=== PATIENT | female | born 1995 | race Caucasian/White ===

== ENCOUNTER 2020-08-08 08:59 | Emergency (ER) | payer MEDICAID, SELFPAY ==
[2020-08-08 09:13] VITALS: BP 141/79; PULSE 70; RESP 18; TEMP 36.8; O2SAT 99; BMI 27.4
--- NOTE | 2020-08-08 09:13 | US_ITS ---
EXAMINATION: US ABDOMEN COMPLETE CLINICAL INFORMATION: Upper abdominal pain and vomiting. COMPARISON: CT scan of July 28, 2018 and abdominal ultrasound of November 28, 2018 TECHNIQUE: Real-time imaging of the abdominal viscera. FINDINGS: PANCREAS: Normal. ABDOMINAL AORTA: The proximal, mid, and distal segments are normal in caliber. INFERIOR VENA CAVA: Visualized portions are normal. LIVER: Normal. The liver is normal in size. The liver contour is normal. Parenchymal echogenicity is normal. No focal hepatic lesion. There is no intrahepatic biliary duct dilatation seen. GALLBLADDER: Distended. There is a linear echogenic region which is seen dependently. No pericholecystic fluid is identified. No wall thickening is noted. No shadowing calculi. No fluid within the wall is noted. COMMON BILE DUCT: Normal in caliber measuring 0.4 cm in diameter. RIGHT KIDNEY: Normal. No hydronephrosis. No renal calculi or focal parenchymal lesions. The kidney measures 11.5 cm in maximum dimension. LEFT KIDNEY: Normal. No hydronephrosis. No renal calculi or focal parenchymal lesions. The kidney measures 13.6 cm in maximum dimension. 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 SPLEEN: Splenomegaly is present The spleen measures 15 cm in maximum dimension. Accessory spleen is present. FREE FLUID: None. IMPRESSION: Echogenic linear focus within the gallbladder without evidence of acute cholecystitis. Normal-appearing pancreas.
--- NOTE | 2020-08-08 09:13 | ED_ITS ---
HPI - Nausea/Vomiting/Diarrhea General Chief complaint: Nausea/Vomiting/Diarrhea Stated complaint: vomiting Time Seen by Provider: 08/08/20 09:13 Source: patient Mode of arrival: ambulatory Limitations: no limitations History of Present Illness MD elicited complaint: nausea, vomiting and abdominal pain Pertinent past history: other (ileus and frequent bouts of vomiting) Onset (ago): week(s) (1) Description of vomiting: food contents and watery Associated nausea: Yes Associated abdominal pain: Yes Location of pain: epigastric Radiation: diffuse Pain consistency: constant Severity: severe Quality: cramping Exacerbating factors: eating Relieving factors: none Associated symptoms: diaphoresis, fever/chills, loss of appetite, malaise, nausea/vomiting and weakness Related Data Previous Rx's Medication Instructions Recorded metoclopramide HCl [Reglan] 10 mg PO Q6H PRN #20 tab 08/08/20 Allergies Allergy/AdvReac Type Severity Reaction Status Date / Time ondansetron [From ZOFRAN] Allergy Intermediate HIVES AND Verified 08/08/20 09:13 VOMITING Sulfa (Sulfonamide Allergy Intermediate HIVES Verified 08/08/20 09:13 Antibiotics) [SULFA (SULFONAMIDE ANTIBIOTICS)] sulfamethoxazole Allergy Intermediate DIARRHEA Verified 08/08/20 09:13 [From BACTRIM] AND VOMITING trimethoprim [From BACTRIM] Allergy Intermediate DIARRHEA Verified 08/08/20 09:13 AND VOMITING ciprofloxacin [From CIPRO] Allergy Mild HIVES Verified 08/08/20 09:13 latex [LATEX] Allergy Mild ITCHING Verified 08/08/20 09:13 Review of Systems Review of Systems: Constitutional : No Weight loss, No Fever, No Chills ENT/Mouth : No sore throat, No Rhinorrhea Eyes: No Swelling, No Redness Cardiovascular : No Chest Pain, No SOB, NoEdema Respiratory : No Cough, No Sputum, No Wheezing Gastrointestinal : Positive Nausea, Positive Vomiting, no Diarrhea, positive abdominal Pain, No Hematochezia, No Melena Genitourinary : No Dysuria, No Urinary Frequency, No Hematuria, No Urgency Musculoskeletal : No joint pain, No Myalgias, No Joint Swelling Skin : No Skin Lesions, No rash Neuro : No Weakness, No Numbness, No Dizziness, No Headache Psych : pos Anxiety/Panic, No Depression All other systems reviewed and are negative. Gastrointestinal: Gastrointestinal: Reports nausea PMFSH Past Medical History Medical History (Updated 08/08/20 @ 13:09 by Francesca Sanford DO) Anomalous implantation of ureter Anxiety Depression IBS (irritable colon syndrome) Social History Social History Alcohol intake: never Smoking Status: Never smoker Use of substances other than those prescribed or required for medical reasons: No Advance Directives: No Advance Directives Information Provided: No Physical Exam Vital Signs: Vital Signs: Vital Signs Temp Pulse Resp BP Pulse Ox 08/08/20 09:13 98.2 F 70 18 141/79 H 99 Body Mass Index 27.4 Appearance: Alert. Oriented X3. Mild acute distress. Active vomiting Eyes: Pupils equal, round and reactive to light. ENT: Pharynx normal. Neck: Normal inspection. Neck supple. CVS: Normal heart rate and rhythm. Pulses normal. Respiratory: No respiratory distress. Breath sounds normal. Abdomen: Soft and moderate epigastric ttp Skin: Skin warm and diaphoretic. pale skin color. Normal skin turgor. Extremities: No lower extremity edema. No calf ttp Neuro: Oriented X 3. No motor deficit. No sensory deficit. Course Course Course Narrative: US negative, stable for DC, no further vomiting, possible THC induced vomiting MDM - Nausea/Vomiting/Diarrhea MDM Narrative Medical decision making narrative: 25 yo female with hx of vomiting and IBS does not smoke THC told once she had ielus at this time has had bouts of vomiting for the past two weeks will need labs, US of GB, IVF, reglan, UPT, dispo per results and workup Lab Data Result diagrams: 08/08/20 09:32 08/08/20 09:31 Labs: Lab Results 08/08/20 08/08/20 08/08/20 Range/Units 09:31 09:32 12:03 WBC 8.0 (4.8-10.8) X10*3/uL RBC 4.47 (4.20-5.50) X10*6/uL Hgb 14.0 (12.0-16.0) g/dl Hct 40.6 (37-47) % MCV 90.8 (80-98) fL MCH 31.3 (27.0-33.0) pg MCHC 34.5 (31.0-35.0) g/dl RDW 12.4 (11.0-16.0) % Plt Count 205 (160-400) X10*3/uL MPV 10.8 (9.4-12.3) fL Immature Gran % (Auto) 0.4 (0.0-0.4) % Neut % (Auto) 83.5 H (45-73) % Lymph % (Auto) 9.4 L (20-40) % Isabela % (Auto) 5.5 (2-11) % Eos % (Auto) 0.8 (0-4) % Baso % (Auto) 0.4 (0-2) % Lymph # (Auto) 0.8 L (1.2-4.9) X10*3/uL Isabela # (Auto) 0.4 (0.1-1.2) X10*3/uL Eos # (Auto) 0.1 (0.0-0.4) X10*3/uL Baso # (Auto) 0.0 (0.0-0.2) X10*3/uL Abs Immat Gran (auto) 0.03 (0.00-0.03) X10*3/uL Absolute Neuts (auto) 6.7 (2.0-8.3) X10*3/uL Absolute Nucleated RBC 0.000 (0.0-0.012) X10*3/uL Nucleated RBC % (auto) 0.0 (0.0-0.2) /100WBC Sodium 142 (135-145) mmol/L Potassium 3.9 (3.3-5.1) mmol/l Chloride 110 H (96-108) mmol/L Carbon Dioxide 20 L (22-29) mmol/L Anion Gap 16 (12-20) BUN 12 (9-16) mg/dL Creatinine 0.76 (0.5-1.4) mg/dL Estim Creat Clear Calc 101.4 Estimated GFR > 60 Random Glucose 122 H (60-115) mg/dL Calcium 9.5 (8.4-10.2) mg/dL Magnesium 1.7 (1.6-2.6) mg/dL Total Bilirubin 0.6 (0.0-1.0) mg/dL Direct Bilirubin 0.2 (0.0-0.5) mg/dL AST 12 (5-31) U/L ALT 12 (0-31) U/L Alkaline Phosphatase 61 (39-117) U/L Total Protein 7.2 (6.5-8.0) g/dL Albumin 4.6 (3.5-5.0) g/dL Urine Color Urine Appearance Urine pH (5.0-8.0) Ur Specific [place] (1.005-1.025) Urine Protein (NEG-TRACE) MG/DL Urine Glucose (UA) (NEG) MG/DL Urine Ketones (NEG) MG/DL Urine Blood (NEG) Urine Nitrite (NEG) Ur Leukocyte Esterase (NEG) Urine RBC (0) /HPF Urine WBC (0-4) /HPF Ur Squamous Epith Cells /LPF Urine Bacteria /LPF Urine Test (NEGATIVE) Urine Opiates Screen Not Detected (Not Detect) Ur Barbiturates Screen Not Detected (Not Detect) Ur Phencyclidine Scrn Not Detected (Not Detect) Ur Amphetamines Screen Not Detected (Not Detect) U Benzodiazepines Scrn Not Detected (Not Detect) Urine Cocaine Screen Not Detected (Not Detect) U Marijuana (THC) Screen POSITIVE H (Not Detect) 08/08/20 Range/Units 12:03 WBC (4.8-10.8) X10*3/uL RBC (4.20-5.50) X10*6/uL Hgb (12.0-16.0) g/dl Hct (37-47) % MCV (80-98) fL MCH (27.0-33.0) pg MCHC (31.0-35.0) g/dl RDW (11.0-16.0) % Plt Count (160-400) X10*3/uL MPV (9.4-12.3) fL Immature Gran % (Auto) (0.0-0.4) % Neut % (Auto) (45-73) % Lymph % (Auto) (20-40) % Isabela % (Auto) (2-11) % Eos % (Auto) (0-4) % Baso % (Auto) (0-2) % Lymph # (Auto) (1.2-4.9) X10*3/uL [place] # (Auto) (0.1-1.2) X10*3/uL Eos # (Auto) (0.0-0.4) X10*3/uL Baso # (Auto) (0.0-0.2) X10*3/uL Abs Immat Gran (auto) (0.00-0.03) X10*3/uL Absolute Neuts (auto) (2.0-8.3) X10*3/uL Absolute Nucleated RBC (0.0-0.012) X10*3/uL Nucleated RBC % (auto) (0.0-0.2) /100WBC Sodium (135-145) mmol/L Potassium (3.3-5.1) mmol/l Chloride (96-108) mmol/L Carbon Dioxide (22-29) mmol/L Anion Gap (12-20) BUN (9-16) mg/dL Creatinine (0.5-1.4) mg/dL Estim Creat Clear Calc Estimated GFR Random Glucose (60-115) mg/dL Calcium (8.4-10.2) mg/dL Magnesium (1.6-2.6) mg/dL Total Bilirubin (0.0-1.0) mg/dL Direct Bilirubin (0.0-0.5) mg/dL AST (5-31) U/L ALT (0-31) U/L Alkaline Phosphatase (39-117) U/L Total Protein (6.5-8.0) g/dL Albumin (3.5-5.0) g/dL Urine Color YELLOW Urine Appearance CLEAR Urine pH 8.0 (5.0-8.0) Ur Specific [place] 1.020 (1.005-1.025) Urine Protein NEG (NEG-TRACE) MG/DL Urine Glucose (UA) NEG (NEG) MG/DL Urine Ketones 5 (NEG) MG/DL Urine Blood TRACE (NEG) Urine Nitrite NEG (NEG) Ur Leukocyte Esterase NEG (NEG) Urine RBC 0-2 (0) /HPF Urine WBC 0 (0-4) /HPF Ur Squamous Epith Cells 1+ /LPF Urine Bacteria NONE /LPF Urine Test NEGATIVE (NEGATIVE) Urine Opiates Screen (Not Detect) Ur Barbiturates Screen (Not Detect) Ur Phencyclidine Scrn (Not Detect) Ur Amphetamines Screen (Not Detect) U Benzodiazepines Scrn (Not Detect) Urine Cocaine Screen (Not Detect) U Marijuana (THC) Screen (Not Detect) Discharge Plan Discharge Clinical Impression: Vomiting Qualifiers: Vomiting type: unspecified Vomiting Intractability: non-intractable Nausea presence: with nausea Qualified Code(s): R11.2 - Nausea with vomiting, unspecified Patient Disposition: Home, Self-Care Instructions: Cyclic Vomiting Syndrome (ED) Additional Instructions: STOP SMOKING MARIJUANA Prescriptions: New metoclopramide HCl [Reglan] 10 mg tablet 10 mg PO Q6H PRN (Reason: nausea and vomiting) Qty: 20 RF: 0 Referrals: Elio Anguiano [Physician] - 2 weeks Interventions: ED Discharge Assessment Last Done: 08/08/20 13:25 Discharge Date/Time: 08/08/20 14:05
[2020-08-08 09:36] LABS: MANUAL DIFF FLAG NO
[2020-08-08 09:39] LABS: Basophils Percent Auto 0.4 % (0-2); Eosinophils Absolute Auto 0.1 X10*3/uL (0.0-0.4); Eosinophils Percent Auto 0.8 % (0-4); Hematocrit 40.6 % (37-47); Imm Gran Abs Auto 0.03 X10*3/uL (0.00-0.03); Imm Gran Pct Auto 0.4 % (0.0-0.4); Lymphocytes Absolute Auto 0.8 X10*3/uL (1.2-4.9); Lymphocytes Percent Auto 9.4 % (20-40); Mean Corpuscular HGB Conc 34.5 g/dl (31.0-35.0); Mean Corpuscular Hemoglobin 31.3 pg (27.0-33.0); Mean Corpuscular Volume 90.8 fL (80-98); Mean Platelet Volume 10.8 fL (9.4-12.3); Monocytes Absolute Auto 0.4 X10*3/uL (0.1-1.2); Monocytes Percent Auto 5.5 % (2-11); Neutrophils Absolute Auto 6.7 X10*3/uL (2.0-8.3); Neutrophils Percent Auto 83.5 % (45-73); Platelet Count 205 X10*3/uL (160-400); Red Blood Count 4.47 X10*6/uL (4.20-5.50); Red Cell Distribution Width 12.4 % (11.0-16.0)
[2020-08-08] MEDS: diphenhydrAMINE HCL 50 MG/ML VIAL 25 MG IVPUSH ×2 (09:47→09:48)
[2020-08-08] MEDS: Metoclopramide HCl 10 MG/2 ML VIAL 5 MG IVPUSH (09:48)
[2020-08-08] MEDS: 0.9 % Sodium Chloride 500 ML 999 ML IVCONT (09:49)
[2020-08-08 10:02] LABS: Alanine Aminotransferase 12 U/L (0-31); Albumin Level 4.6 g/dL (3.5-5.0); Alkaline Phosphatase 61 U/L (39-117); Anion Gap 16 (12-20); Aspartate Amino Transferase 12 U/L (5-31); Bilirubin Direct 0.2 mg/dL (0.0-0.5); Bilirubin Total 0.6 mg/dL (0.0-1.0); Blood Urea Nitrogen 12 mg/dL (9-16); Calcium 9.5 mg/dL (8.4-10.2); Carbon Dioxide 20 mmol/L (22-29); Chloride 110 mmol/L (96-108); Creatinine Clr Calc Pharmacy 101.4; Estimated Glomerular Filt Rate > 60; Glucose Random 122 mg/dL (60-115); Magnesium 1.7 mg/dL (1.6-2.6); Potassium 3.9 mmol/l (3.3-5.1); Sodium 142 mmol/L (135-145); Total Protein 7.2 g/dL (6.5-8.0)
[2020-08-08] MEDS: Haloperidol Lactate 5 MG/ML VIAL IM (10:07)
--- NOTE | 2020-08-08 10:09 | PC.NURSE ---
iv established, blood labs obtained and sent as well as medicated w initial orders. pt persists vomitting bile, provider aware, medicated further per emar. pt sts id like to just be sedated . wctm for effect.
--- NOTE | 2020-08-08 11:03 | PC.NURSE ---
TAKEN TO US VIA STRETCHER
--- NOTE | 2020-08-08 12:06 | PC.NURSE ---
pt ambulated to and from bathroom w steady gait. sts feeling no better , but no appearence of vomitting, crying or grimacing.
[2020-08-08 12:18] LABS: Glucose Urine UA NEG (NEG); Leukocyte Esterase Urine NEG (NEG); Nitrite Urine NEG (NEG); Urine Blood TRACE (NEG); Urine Ketones 5 MG/DL (NEG); Urine Protein NEG (NEG-TRACE)
[2020-08-08 12:22] LABS: Appearance Urine CLEAR; Color Urine YELLOW
[2020-08-08 12:29] LABS: UPreg QC Valid YES; Urine Pregnancy NEGATIVE (NEGATIVE)
[2020-08-08 12:30] LABS: RBC Urine 0-2 /HPF (0); Squamous Epithelial Cell Urine 1+ /LPF; WBC Urine 0 /HPF (0-4)
[2020-08-08 12:44] LABS: Amphetamine Screen Urine Not Detected (Not Detect); Barbiturates, Urine Not Detected (Not Detect); Benzodiazepines Screen Urine Not Detected (Not Detect); Cannabinoid Screen Urine POSITIVE (Not Detect); Cocaine Screen Urine Not Detected (Not Detect); Opiate Screen Urine Not Detected (Not Detect); Phencyclidine Screen Urine Not Detected (Not Detect)
== END 2020-08-08 14:05 | disposition home or self-care (01) ==
PROVIDERS: Emergency Provider Emergency Medicine; PCP Internal Medicine
DX: R11.2 Nausea with vomiting, unspecified (principal); R10.13 Epigastric pain; F12.90 Cannabis use, unspecified, uncomplicated
CPT/HCPCS: 76700; 80048; 80076; 80307; 81001; 81025; 83735; 85025; 96372; 96374; 96375; 99284; J1200; J2765

== ENCOUNTER 2024-05-31 09:51 | Emergency (ER) | payer MEDICAID, SELFPAY ==
[2024-05-31 10:25] VITALS: BP 128/70; BP 128/72; PULSE 104; PULSE 88; RESP 15; TEMP 36.7; O2SAT 99; BMI 30.5
--- OUTSIDE RECORDS SUMMARY | 2024-05-31 10:47 | XMS_ITS | Continuity of Care Document ---
Author Organization [facility] Address [address] [place] [id number]- Care Team Providers Care Assistant Terminal Manager Name Role Phone Paige SAMANIEGO, Edwin Primary Care Physician [phone] Encounter [facility] Date(s): 06/21/21 - 06/23/[address] [address] Discharge Disposition: A-D/C Home Attending Physician: Chrystal Kelley MD Admitting Physician: Chrystal Kelley MD Referring Physician: Chrystal Kelley MD Allergies, Adverse Reactions, Alerts Substance Reaction Severity Status ciprofloxacin Hives Active sulfADIAZINE Hives Active Latex Hives Active Ciloxan 0.3% ophthalmic solution reaction Active Other Food Allergy 1 Acute vomiting Skin rash Active 1red sauce, all citrus, chocolate Immunizations Given and Recorded Vaccine Date Status Refusal Reason tetanus/diphtheria/pertussis, acel(Tdap) 04/29/21 Given SARS-CoV-2 (COVID-19) mRNA-1273 vaccine 04/18/21 R ecorded SARS-CoV-2 (COVID-19) mRNA-1273 vaccine 03/19/21 R ecorded influenza virus vaccine, inactivated 12/28/20 Give n Medications clonazePAM 0.5 mg oral tablet = 0.5 mg, By Mouth, 2 times a day, 0 Refills, Maintenance, 04/08/19 7:40:37 EDT, Tablet Start Date: 04/08/19 Status: Ordered Multivitamins with Folic Acid 1 mg oral tablet 1 tablet, By Mouth, Daily, # 90 tablet, 3 Refills, Maintenance, 11/07/20 12:22:00 EST, Tablet, [facility]/pharmacy #[id number], Partial fill upon patient request if the prescription is for a schedule II opioid drug., 1 tablet By Mouth Daily, 158, cm, 08/05/20 16:5... Start Date: 11/07/20 Status: Ordered sertraline 50 mg oral tablet = 50 mg, By Mouth, Daily, Take 50mg (1 tablet) by mouth for 3 weeks (21 days) then take 100mg (2 tablets) by mouth., # 30 tablet, 3 Refills, Maintenance, 04/08/19 7:40:50 EDT, Tablet Start Date: 04/08/19 Stop Date: 08/06/19 Status: Ordered Problem List Condition Effective Dates Status Health Status Inform ant Abnormal Pap smear of cervix(Confirmed) 1 Active H/O Abnormal first tri scree n, normal amnio/microarray at 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), bilateral duplex kidneys(Confirmed) 5, 6, 7 Active Asthma, exercise induced(Confirmed) 8 Active Marijuana use(Confirmed) 9 Active GERD (gastroesophageal reflu x disease)(Confirmed) Active Hx of depression, currently (Confirmed) Active History of stomach ulcers(Co nfirmed) 10 Active History of delivery, currently (Confirmed) 11 Active Kidney disorder(Confirmed) 12 Active (Confirmed) Active Scoliosis(Confirmed) Active Seizure disorder(Confirmed) 13, 14 Active 1Patient states last PAP at [facility] about three years ago was ASCUS 2Son born with Nail Patellar Syndrome 3FTS: increased risk for Down Syndrome of ; second trimester scan showed deformed legs with 180 degree rotation at knees and feet 4Not currently in therapy, states does not like zoom therapy . Prescribed zoloft and clonazepam by PCP. States that she currently feels stable. 5Son born with Nail Patellar Syndrome 6according to records pt. 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 9Smokes 2-3 times weekly 10As a child, states last episode was about 5 years ago 11H/O delivery at 36+6 in last 12Dual collecting kidney on the left side. Last saw renal as a child, has not seen since after her surgery in 2001 13States last seizure was 3-4 years ago. Does not have a neurologist. Is not prescribed seizure medications but is prescribed clonazepam. 14Hx seizure age 1. Last seizure >2 yrs ago. Does not have neurologist. Vital Signs Most recent to oldest [Reference Range]: 1 2 3 Oxygen Saturation [94-100 %] 100 % (06/23/21 8:00 AM) 97 % (06/23/21 12:00 AM) 97 % (06/22/21 4:30 PM) Pulse Rate [55-90 bpm] 63 bpm (06/23/21 8:00 AM) 58 bpm (06/23/21 12:00 AM) 62 bpm (06/22/21 4:30 PM) Blood Pressure [90-138/55-84 mm Hg] 123/64mm Hg (06/23/21 8:00 AM) 127/78mm Hg (06/23/21 12:00 AM) 124/74mm Hg (06/22/21 4:30 PM) Respiratory Rate [16-30 br/min] 18 br/min (06/23/21 8:00 AM) 18 br/min (06/23/21 12:00 AM) 18 br/min (06/22/21 4:30 PM) Temperature [96.8-100.4 DegF] 98.2 DegF (06/23/21 8:00 AM) 97.7 DegF (06/23/21 12:00 AM) 98.0 DegF (06/22/21 4:30 PM) Mode of Delivery (Oxygen) Room air (06/23/21 8:00 AM) Room air (06/23/21 12:00 AM) Room air (06/22/21 4:30 PM) Blood pressure sites Arm, right (06/23/21 8:00 AM) Arm, right (06/23/21 12:00 AM) Arm, right (06/22/21 4:30 PM) Temperature Route Oral (06/23/21 8:00 AM) Oral (06/23/21 12:00 AM) Oral (06/22/21 4:30 PM) Social History Social History Type Response Smoking Status Former smoker, quit more than 30 days ago; Other: Quit about two and a half years ago; entered on: 11/26/20 Sex
--- OUTSIDE RECORDS SUMMARY | 2024-05-31 10:47 | XMS_ITS | Continuity of Care Document ---
Author Organization [facility] Address [address] [place] [id number]- Care Team Providers Care Studio Set Up Worker Name Role Phone Paige SAMANIEGO, Edwin Primary Care Physician Encounter [facility] Date(s): 11/28/20 - 12/28/[address] [id number]- Allergies, Adverse Reactions, Alerts Substance Reaction Severity Status ciprofloxacin Hives Active sulfADIAZINE Hives Active Latex Hives Active Ciloxan 0.3% ophthalmic solution reaction Active Other Food Allergy 1 Acute vomiting Skin rash Active 1red sauce, all citrus, chocolate Immunizations Given and Recorded Vaccine Date Status Refusal Reason influenza virus vaccine, inactivated 12/28/20 Give n Medications clonazePAM 0.5 mg oral tablet = 0.5 mg, By Mouth, 2 times a day, 0 Refills, Maintenance, 04/08/19 7:40:37 EDT, Tablet Start Date: 04/08/19 Status: Ordered doxylamine 25 mg oral tablet See Instructions, half tablet By Mouth twice a day, # 14 tablet, 0 Refills, Acute 12/31/20 8:29:00 EDT, 12/03/20 9:01:00 EST, [facility]/pharmacy #[id number], Partial fill upon patient request if the prescriptionis for a schedule II opioid drug., 158, cm, ... Start Date: 12/03/20 Stop Date: 12/31/20 Status: Ordered Multivitamins with Folic Acid 1 mg oral tablet 1 tablet, By Mouth, Daily, # 90 tablet, 3 Refills, Maintenance, 11/07/20 12:22:00 EST, Tablet, [id number], Partial fill upon patient request if the prescription is for a schedule II opioid drug., 1 tablet By Mouth Daily, 158, cm, 08/05/20 16:5... Start Date: 11/07/20 Status: Ordered pyridoxine 25 mg oral tablet 1 tablet = 25 mg, By Mouth, 3 times a day, # 30 tablet, 0 Refills, Acute 01/01/21 8:29:00 EDT, 12/03/20 9:01:00 EST, [facility]/pharmacy #[id number], Partial fill upon patient request if the prescription is for aschedule II opioid drug., 158, cm, 11/26/20 10:40:0... 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), bilateral duplex kidneys(Confirmed) 5, 6, 7 Active Asthma, exercise induced(Confirmed) 8 Active Marijuana use(Confirmed) 9 Active GERD (gastroesophageal reflu x disease)(Confirmed) Active History of stomach ulcers(Co nfirmed) 10 Active History of delivery, currently (Confirmed) 11 Active Kidney disorder(Confirmed) 12 Active (Confirmed) Active Scoliosis(Confirmed) Active Seizure disorder(Confirmed) 13, 14 Active 1Patient states last PAP at [facility] about three years ago was ASCUS 2Son [...] hydroureter; normal appearing urinary bladder; connected with [facility] 8Reports does not have an inhaler. 9Smokes [...] >2 yrs ago. Does not have neurologist. Social History Social History Type Response Smoking Status Former smoker, quit more than 30 days ago; Other: Quit about two and a half years ago; entered on: 11/26/20 Sex
--- OUTSIDE RECORDS SUMMARY | 2024-05-31 10:47 | XMS_ITS | Continuity of Care Document ---
Author Organization [facility] Address [address] [place] [address]- Care Team Providers Care Hand Slitter Name Role Phone Jessi Gomez DO Primary Care Physician Encounter [facility] Date(s): 02/17/24 - 03/18/[address] [address] Attending Physician: Anali Godfrey Admitting Physician: AdmAnali gusman Referring Physician: Admtr ArCarrillo Allergies, Adverse Reactions, Alerts Substance Reaction Severity Status ciprofloxacin Hives Active sulfADIAZINE Hives Active Dilaudid GI distres Active Latex Hives Active Ciloxan 0.3% ophthalmic solution reaction Active Other Food Allergy 1 Oranges, chocolate, tomatoes Acute vomiting Skin rash Active 1red sauce, all citrus, chocolate Immunizations Given and Recorded Vaccine Date Status Refusal Reason tetanus/diphtheria/pertussis, acel(Tdap) 04/29/21 Given SARS-CoV-2 (COVID-19) mRNA-1273 vaccine 04/18/21 R ecorded SARS-CoV-2 (COVID-19) mRNA-1273 vaccine 03/19/21 R ecorded influenza virus vaccine, inactivated 12/28/20 Give n Medications acetaminophen 325 mg oral tablet 650 mg, 2, tablet, By Mouth, Every 4 hours, PRN, # 50 tablet, Refills 0, Tot. Refills 0, Maintenance, Pain , Mild, 01/08/24 14:51:00 EDT, Route to Pharmacy Electronically, [facility]/pharmacy #[id number], Partialfill upon patient request if the prescription is fo... Start Date: 01/08/24 Status: Ordered clonazePAM 0.5 mg oral tablet 1 tablet = 0.5 mg, By Mouth, 2 times a day, 0 Refills, Maintenance, 04/08/19 7:40:37 EDT, Tablet Start Date: 04/08/19 Status: Ordered ibuprofen 600 mg oral tablet 600 mg, 1, tablet, By Mouth, 4 times a day, PRN, # 50 tablet, Refills 0, Tot. Refills 0, Maintenance, for pain, 01/08/24 14:51:00 EDT, Route to Pharmacy Electronically, [facility]/pharmacy #[id number], Partial fill upon patient request if the prescription is for a... Start Date: 01/08/24 Status: Ordered metoclopramide 10 mg oral tablet 1 tablet = 10 mg, By Mouth, 4 times a day, # 120 tablet, 0 Refills, Maintenance, 01/10/24 12:12:00 EDT, Tablet, [facility]/pharmacy #[id number], Partial fill upon patient request if the prescription is for a schedule II opioid drug., 157, cm, 01/10/24 10:51:00 EDT... Start Date: 01/10/24 Status: Ordered MiraLax oral powder for reconstitution = 17 Gm, By Mouth, Daily, dissolve in water or juice, # 255 Gm, 0 Refills, Maintenance, 01/10/24 12:13:00 EDT, REC Powder, [facility]/pharmacy #[id number], Partial fill upon patient request if the prescription isfor a schedule II opioid drug., 17 Gm By Mouth Davon... Start Date: 01/10/24 Status: Ordered ondansetron 4 mg oral tablet, disintegrating 1 tablet = 4 mg, By Mouth, Every 8 hours, PRN as needed for nausea/vomiting, # 12 tablet, 0 Refills, Maintenance, 01/03/24 6:11:00 EDT, DIS Tablet, [id number], Partial fill upon patient request if the prescription is for a schedule II opioid d... Start Date: 01/03/24 Status: Ordered oxyCODONE 5 mg oral tablet 5 mg, 1, tablet, By Mouth, Every 6 hours, PRN, # 12 tablet, Refills 0, Tot. Refills 0, Maintenance,as needed for pain, 01/08/24 14:51:00 EDT, Route to Pharmacy Electronically, [id number], Partial fill upon patient request if the prescription... Start Date: 01/08/24 Status: Ordered Senna 8.6 mg oral tablet 1 or 2 tablets, By Mouth, Daily at bedtime, PRN, # 60 tablet, Refills 0, Tot. Refills 0, Maintenance, Constipation, 01/20/24 9:36:00 EDT, Route to Pharmacy Electronically, [id number] Tablet, Partial fill upon patient request if the prescriptio... Start Date: 01/20/24 Status: Ordered Senna 8.6 mg oral tablet 17.2 mg, 2, tablet, By Mouth, Daily at bedtime, # 50 tablet, Refills 0, Tot. Refills 0, Maintenance, 01/08/24 14:51:00 EDT, Route to Pharmacy Electronically, [id number], Partial fill upon patient request if the prescription is for a schedule I... Start Date: 01/08/24 Status: Ordered sertraline 100 mg oral tablet 1 tablet = 100 mg, By Mouth, Daily at bedtime, 0 Refills, Maintenance, 01/09/24 11:33:00 EDT, Partial fill upon patient request if the prescription is for a schedule II opioid drug. Start Date: 01/09/24 Status: Ordered simethicone 80 mg oral tablet, chewable 80 mg, 1, tablet, Chew, 4 times a day, PRN, # 12 tablet, Refills 0, Tot. Refills 0, Maintenance, asneeded for gas, 01/10/24 12:13:00 EDT, Route to Pharmacy Electronically, [id number], Partial fill upon patient request if the prescription is f... 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), bilateral duplex kidneys 5, 6, 7 Confirmed Active Asthma, exercise induced 8 Confirmed Active Marijuana use 9 Confirmed Active GERD (gastroesophageal reflux disease) Confirmed Active Hx of depression, currently Confirmed Active History of stomach ulcers 10 Confirmed Active History of delivery, currently 11 Confirmed Active Kidney disorder 12 Confirmed Active Obese class I Confirmed Active Scoliosis Confirmed Active Seizure disorder 13, 14 Confirmed Active 1Patient states last PAP at [facility] about three years ago was ASCUS 2Son [...] hydroureter; normal appearing urinary bladder; connected with [facility] 8Reports does not have an inhaler. [...] >2 yrs ago. Does not have neurologist. Procedures Procedure Date Related Diagnosis Body Site Status Extraction of wisdom tooth Completed Vital Signs Most recent to oldest [Reference Range]: 1 Height 158 cm (02/25/19 3:52 PM) Social History Social History Type Response Tobacco Other: I smoke erum temitope . Sex Patient Care team information Care Team Personnel Name: Mavis Okeefe RN Position: [facility] RN Member Role: Primary Care Nurse Name: Alanis Oneal MA Position: [facility] NILAM Office Staff Member Role: Lifetime Consulting Physician Name: Fannie Hall RN Position: [facility] RN Member Role: Primary Care Nurse Name: Jessi Gomez DO Position: [facility] Physician (General Medicine) Member Role: PCP Address: Address: [address] [place] [address] Name: Darby Trevizo NP Position: [facility] PCO Associate Professional Member Role: Primary Care Nurse Address: Address: [address] [facility] [place] [address]- [place] Care Team Related Persons Name: RADHA DOVE Name: CELESTIN DEXTER Address: home [address] [place] [address] Name: BALA MAYER Address: home [address] [place] [address] Name: LARISA VILLA Address: [employer] Address: home [address] [place] [address] [place] Name: LAXMI VILLA [facility] Address: home [address] [place] [address] Name: [place] Address: [address] [place] [address]
--- OUTSIDE RECORDS SUMMARY | 2024-05-31 10:47 | XMS_ITS | Continuity of Care Document ---
Author Organization [facility] Address [address] [place] [address]- Care Team Providers Care Behavior Interventionist Name Role Phone Paige SAMANIEGO, Edwin Primary Care Physician Encounter [facility] [place] Date(s): 08/11/23 - 09/10/[address] [id number] Allergies, Adverse Reactions, Alerts Substance Reaction Severity Status ciprofloxacin Hives Active Other Food Allergy 1 Acute vomiting Skin rash Active Ciloxan 0.3% ophthalmic solution reaction Active sulfADIAZINE Hives Active Dilaudid Active Latex Hives Active 1red sauce, all citrus, chocolate Immunizations Given and Recorded Vaccine Date Status Refusal Reason tetanus/diphtheria/pertussis, acel(Tdap) 04/29/21 Given SARS-CoV-2 (COVID-19) mRNA-1273 vaccine 04/18/21 R ecorded SARS-CoV-2 (COVID-19) mRNA-1273 vaccine 03/19/21 R ecorded influenza virus vaccine, inactivated 12/28/20 Give n Medications Gabrielle Allergy 60 mg oral tablet 1 tablet = 60 mg, By Mouth, Daily at bedtime, 0 Refills, Maintenance, 03/24/23 17:15:00 EDT, Partial fill upon patient request if the prescription is for a schedule II opioid drug. Start Date: 03/24/23 Status: Ordered Benadryl 25 mg oral tablet 25 mg, 1, tablet, By Mouth, Daily at bedtime, 0 Refills, Maintenance Start Date: 03/24/23 Status: Ordered clindamycin 300 mg oral capsule 1 capsule = 300 mg, By Mouth, Every 6 hours, 0 Refills, Maintenance, 03/24/23 17:16:00 EDT, Partialfill upon patient request if the prescription is for a schedule II opioid drug. Start Date: 03/24/23 Status: Ordered clonazePAM 0.5 mg oral tablet = 0.5 mg, By Mouth, 2 times a day, 0 Refills, Maintenance, 04/08/19 7:40:37 EDT, Tablet Start Date: 04/08/19 Status: Ordered Flonase 50 mcg/inh nasal spray 1spray, Inhalation, Daily, 0 Refills, Maintenance, 03/24/23 17:16:00 EDT, Partial fill upon patientrequest if the prescription is for a schedule II opioid drug. Start Date: 03/24/23 Status: Ordered sertraline 50 mg oral tablet = 50 mg, By Mouth, Daily, Take 50mg (1 tablet) by mouth for 3 weeks (21 days) then take 100mg (2 tablets) by mouth., # 30 tablet, 3 Refills, Maintenance, 04/08/19 7:40:50 EDT, Tablet Start Date: 04/08/19 Stop Date: 08/06/19 Status: Ordered Problem List Condition Confirmation Course Effective Dates Status Health St atus Informant Abnormal Pap smear of cervix 1 Confirmed Active H/O Abnormal first tri screen, normal amnio/microarray at [facility] 2, 3 Confirmed Active Abnormal chromosomal [...] Confirmed Active 1Patient states last PAP at [facility] about three years ago was ASCUS [...] hydroureter; normal appearing urinary bladder; connected with [facility] 8Reports does not have an inhaler. 9Smokes [...] neurologist. Social History Social History Type Response Tobacco Other: I smoke erum temitope . Sex Patient Care team information Care Team Personnel Name: Edwin Gibson MD Position: [facility] Outreach Member Role: PCP Address: Address: [address] [place] [address]- Name: Alanis Oneal MA Position: [facility] DIALLO MA Member Role: Lifetime Consulting Physician Name: Santhosh HAGER, Darby Gr Position: [facility] PCO Associate Professional Member Role: Primary Care Nurse Address: Address: [address] [place] [address]- Care Team Related Persons Name: RADHA DOVE Name: DEXTER CELESTIN Address: home [address] [place] [address] Name: BALA MAYER Address: [address] [place], [place] Name: LARISA VILLA Address: [employer] Address: [address] [place] [address] [place] Name: LAXMI VILLA Address: [employer] Address: home [address] [place], [place] Name: [place] Address: [address] [place] [address]
--- OUTSIDE RECORDS SUMMARY | 2024-05-31 10:47 | XMS_ITS | Continuity of Care Document ---
Author Organization [facility] Address [address] [place] [address]- Care Team Providers Care Radiology Supervisor Name Role Phone Paige SAMANIEGO, Edwin Primary Care Physician [phone] [place] [facility] [place] Date(s): 05/28/21 - 06/30/[address] [address] Attending Physician: Not on Staff, Attending MD Allergies, Adverse Reactions, Alerts Substance Reaction [...] first tri scree n, normal amnio/microarray at [facility](Confirmed) 2, 3 Active Abnormal chromosomal and gen [...] 14 Active 1Patient states last PAP at [facility] about three years ago was ASCUS [...] hydroureter; normal appearing urinary bladder; connected with [facility] 8Reports does not have an inhaler. [...]
--- OUTSIDE RECORDS SUMMARY | 2024-05-31 10:47 | XMS_ITS | Continuity of Care Document ---
Author Organization [facility] Address [address] [place] [address]- Care Team Providers Care Agricultural Loan Officer Name Role Phone Paige SAMANIEGO, Kenzie Simons Primary Care Physician Encounter [facility] ACCT R [id number] Date(s): 09/03/21 - 10/03/[address] [address] Attending Physician: Admtr, [id number] Admitting Physician: Admtr, [id number] Referring Physician: Admtr, Ar8 Allergies, Adverse Reactions, Alerts Substance Reaction Severity [...] EDT, Tablet Start Date: 04/08/19 Status: Ordered ondansetron 4 mg oral tablet, disintegrating 1 tablet = 4 mg, By Mouth, Every 8 hours, PRN Nausea & Vomiting, # 10 tablet, 0 Refills, Maintenance, 09/07/21 1:33:00 EST, Tablet, [id number], Partial fill upon patient request if the prescription is for a schedule II opioid drug., 158, cm, 1... Start Date: 09/07/21 Status: Ordered ondansetron 4 mg oral tablet, disintegrating 1 tablet = 4 mg, By Mouth, Every 8 hours, PRN Nausea & Vomiting, # 10 tablet, 0 Refills, Maintenance, 09/19/21 17:01:00 EST, Tablet, [facility]/pharmacy #[id number], Partial fill upon patient request if the prescription is for a schedule II opioid drug., 157, cm,... Start Date: 09/19/21 Status: Ordered oxyCODONE 5 mg oral capsule 1 capsule = 5 mg, By Mouth, Every 6 hours, PRN for pain, # 5 capsule, 0 Refills, Maintenance, 09/07/21 1:33:00 EST, Capsule, Partial fill upon patient request if the prescription is for a schedule IIopioid drug. Start Date: 09/07/21 Status: Ordered oxyCODONE 5 mg oral capsule 1 capsule = 5 mg, By Mouth, Every 6 hours, PRN for pain, # 5 capsule, 0 Refills, Maintenance, 09/07/21 1:39:00 EST, Capsule, Partial fill upon patient request if the prescription is for a schedule IIopioid drug. Start Date: 09/07/21 Status: Ordered Multivitamins with Folic Acid 1 mg oral tablet 1 tablet, By Mouth, Daily, # 90 tablet, 3 Refills, Maintenance, 11/07/20 12:22:00 EST, Tablet, [facility]/pharmacy #[id number], Partial fill upon patient request if [...] first tri scree n, normal amnio/microarray at [facility](Confirmed) 2, 3 Active Abnormal chromosomal and [...] (Confirmed) 11 Active Kidney disorder(Confirmed) 12 Active Obese class I(Confirmed) Active (Confirmed) Active Scoliosis(Confirmed) Active Seizure disorder(Confirmed) 13, 14 Active 1Patient states last PAP at [facility] about three years ago was ASCUS [...] hydroureter; normal appearing urinary bladder; connected with [facility] 8Reports does not have [...]
--- OUTSIDE RECORDS SUMMARY | 2024-05-31 10:47 | XMS_ITS | Continuity of Care Document ---
Author Organization [facility] Address [address] [place] [address]- Care Team Providers Care Corporate Administrator Name Role Phone Not on Staff, PCP Primary Care Physician Unavail able Encounter [facility] [place] Date(s): 08/19/22 - 08/19/[address] [address]- Discharge Disposition: A-D/C Home Attending Physician: Angel Cardoso MD Admitting Physician: Angel Cardoso MD Referring Physician: Not on Staff, Referring MD Allergies, Adverse Reactions, Alerts Substance Reaction [...] EDT, Tablet Start Date: 04/08/19 Status: Ordered Dilaudid Inj 1 mg, Injection, IV Push Slowly, Every 15 minutes for 3 doses/times, PRN for Pain , Moderate, and SBP greater than 100, STAT, 08/19/22 9:25:00 EDT, Stop date Limited # of times Start Date: 08/19/22 Stop Date: 08/19/22 Status: Discontinued ondansetron 4 mg oral tablet 1 tablet = 4 mg, By Mouth, Every 8 hours, PRN Nausea & Vomiting, for 3 days, # 10 tablet, 0 Refills, Acute 08/22/22 12:51:00 EDT, 08/19/22 12:51:00 EDT, Tablet, [facility]/pharmacy #[id number], Partial fill upon patient request if the prescription is for a schedul... Start Date: 08/19/22 Stop Date: 08/22/22 Status: Ordered oxyCODONE 5 mg oral capsule [...] 3 Refills, Maintenance, 11/07/20 12:22:00 EST, Tablet, [facility]/pharmacy #[id number], Partial fill upon patient request [...] Abnormal first tri screen, normal amnio/microarray at [facility] 2, 3 Confirmed Active Abnormal chromosomal and [...] Confirmed Active 1Patient states last PAP at [facility] about three years ago was ASCUS [...] hydroureter; normal appearing urinary bladder; connected with [facility] 8Reports does [...] to oldest [Reference Range]: 1 2 3 Height 158 cm (08/19/22 8:30 AM) Weight 81.8 kg (08/19/22 8:30 AM) Oxygen Saturation [94-100 %] 99 % (08/19/22 9:53 AM) 100 % (08/19/22 8:08 AM) Pulse Rate [55-90 bpm] 68 bpm (08/19/22 12:13 PM) 88 bpm (08/19/22 9:53 AM) 84 bpm (08/19/22 8:08 AM) Blood Pressure [90-138/55-84 mm Hg] 112/62mm Hg (08/19/22 12:13 PM) 141/92mm Hg *H* (08/19/22 9:53 AM) 132/97mm Hg (08/19/22 8:08 AM) Respiratory Rate [16-30 br/min] 18 br/min (08/19/22 12:13 PM) 26 br/min (08/19/22 9:53 AM) 22 br/min (08/19/22 9:27 AM) Temperature [96.8-100.4 DegF] 97.8 DegF (08/19/22 12:13 PM) Mode of Delivery (Oxygen) Room air (08/19/22 9:53 AM) Room air (08/19/22 8:08 AM) Blood pressure sites Arm, right (08/19/22 8:08 AM) Temperature Route Oral (08/19/22 12:13 PM) Dry Weight 81.8 kg (08/19/22 8:30 AM) Weight Obtained Via Patient/family state d (08/19/22 8:30 AM) Dry Weight Obtained Via Patient/family s tated (08/19/22 8:30 AM) Social History Social History Type Response Tobacco Other: I smoke erum temitope . Sex Patient Care team information Personnel Name: Not on Staff, PCP
--- OUTSIDE RECORDS SUMMARY | 2024-05-31 10:47 | XMS_ITS | Continuity of Care Document ---
Author Organization [facility] Address [address] [place] [address]- Care Team Providers Care Home Health Nurse Name Role Phone Jessi Gomez DO Primary Care Physician ( [phone] Encounter [facility] [place]CT [place] [id number] Date(s): 10/21/23 - 02/06/24 [facility] [address] [place] [address]- Attending Physician: Walter Roland MD Admitting Physician: Walter Roland MD Referring Physician: Jessi Gomez DO Allergies, Adverse Reactions, Alerts Substance Reaction Severity [...] 01/08/24 14:51:00 EDT, Route to Pharmacy Electronically, [facility]/pharmacy #[id number], Partialfill upon patient request if the prescription [...] 01/08/24 14:51:00 EDT, Route to Pharmacy Electronically, [facility]/pharmacy #[id number], Partial fill upon patient request if the prescription is for a... Start Date: 01/08/24 Status: Ordered metoclopramide 10 mg oral tablet 1 tablet = 10 mg, By Mouth, 4 times a day, # 120 tablet, 0 Refills, Maintenance, 01/10/24 12:12:00 EDT, Tablet, [id number], Partial fill upon patient request if the prescription is for a schedule II opioid drug., 157, cm, 01/10/24 10:51:00 EDT... Start Date: 01/10/24 Status: Ordered MiraLax oral powder for reconstitution = 17 Gm, By Mouth, Daily, dissolve in water or juice, # 255 Gm, 0 Refills, Maintenance, 01/10/24 12:13:00 EDT, REC Powder, [facility]/pharmacy #[id number], Partial fill upon patient request [...] 01/10/24 12:13:00 EDT, Route to Pharmacy Electronically, [facility]/pharmacy #[id number], Partial fill upon patient request if the prescription is f... Start Date: 01/10/24 Status: Ordered Problem List Condition Confirmation Course Effective Dates Status [facility] St atus Informant Abnormal Pap smear of cervix 1 Confirmed Active H/O Abnormal first tri screen, normal amnio[facility]microarray at [facility] 2, 3 Confirmed Active Abnormal chromosomal and [...] Confirmed Active 1Patient states last PAP at [facility] about three years ago was ASCUS 2Son [...] hydroureter; normal appearing urinary bladder; connected with [facility] 8Reports does not have an inhaler. [...] Type Response Tobacco Other: I smoke erum linn . Sex Patient Care team information Care Team Personnel Name: Mavis Okeefe RN Position: [facility] RN Member Role: Primary Care Nurse Name: Alanis Oneal MA Position: [facility] DIALLO PEARSON Member Role: Lifetime Consulting Physician Name: Fannie Hall RN Position: [facility] RN Member Role: Primary Care Nurse Name: Jessi Gomez DO Position: [facility] Physician (General Medicine) Member Role: PCP Address: Address: [address] [place] [address] [place] [address]- Name: Darby Trevizo NP Position: [facility] PCO Associate Professional Member Role: Primary Care Nurse Address: Address: [address] [place] [address] [place] [address]- Care Team Related Persons Name: RADHA DOVE Name: DEXTER CELESTIN Address: home [address] [place] [address] Name: BALA MAYER Address: [address] [place] [address] Name: LARISA VILLA Address: [employer] Address: [address] Name: LAXMI VILLA Address: [facility] Address: [address] Name: S[place]A [place] Address: [place] [id number]
--- OUTSIDE RECORDS SUMMARY | 2024-05-31 10:47 | XMS_ITS | Continuity of Care Document ---
Author Organization [facility] Address [address] [place] [address]- Care Team Providers Care Pre Owned Sales Manager Name Role Phone Paige SAMANIEGO, Edwin Primary Care Physician En[place] [facility] [place] Date(s): 03/29/21 - 04/28/[address] [address] Attending Physician: Anali Godfrey Admitting Physician: Anali Godfrey Referring Physician: AdmtrAnali Allergies, Adverse Reactions, Alerts Substance Reaction Severity [...] first tri scree n, normal amnio/microarray at [facility](Confirmed) 2, 3 Active Anxiety, depression, complex [...] 14 Active 1Patient states last PAP at [facility] about three years ago was [...] hydroureter; normal appearing urinary bladder; connected with [facility] 8Reports does not have an inhaler. [...]
--- OUTSIDE RECORDS SUMMARY | 2024-05-31 10:47 | XMS_ITS | Continuity of Care Document ---
Author Organization [facility] Address [address] [place] [address]- Care Team Providers Care Flexo Press Operator Name Role Phone Paige SAMANIEGO, Edwin Primary Care Physician Encounter [facility] Date(s): 07/11/21 - 08/10/[address] [address] Allergies, Adverse Reactions, Alerts Substance Reaction Severity [...] first tri scree n, normal amnio/microarray at [facility](Confirmed) 2, 3 Active Abnormal chromosomal and [...] 14 Active 1Patient states last PAP at [facility] about three years ago was ASCUS [...] hydroureter; normal appearing urinary bladder; connected with [facility] 8Reports does not have an [...]
--- OUTSIDE RECORDS SUMMARY | 2024-05-31 10:47 | XMS_ITS | Continuity of Care Document ---
Author Organization [facility] Address [address] [place] [id number]- Care Team Providers Care Spa Assistant Manager Name Role Phone Paige SAMANIEGO, Edwin Primary Care Physician [phone] Encounter [facility] Date(s): 04/29/21 - 08/07/[address] [id number] Attending Physician: Not on Staff, Attending MD [...] first tri scree n, normal amnio/microarray at [facility](Confirmed) 2, 3 Active Abnormal chromosomal and [...] 14 Active 1Patient states last PAP at [facility] about three years ago was ASCUS [...] hydroureter; normal appearing urinary bladder; connected with [facility] 8Reports does not have an [...]
--- OUTSIDE RECORDS SUMMARY | 2024-05-31 10:47 | XMS_ITS | Continuity of Care Document ---
Author Organization [facility] Address [address] [place] [address]- Care Team Providers Care [employer] Worker Name Role Phone Paige SAMANIEGO, Edwin Primary Care Physician [id number] Date[facility]29[facility] - [facility] [address] [address]- Attending Physician: Not on Staff, Attending MD Allergies, Adverse Reactions, Alerts Substance Reaction Severity Status ciprofloxacin Hives Active sulfADIAZINE Hives Active Latex Hives Active Ciloxan 0.3% ophthalmic solution reaction Active Other Food Allergy 1 Acute vomiting Skin rash Active 1red sauce, all citrus, chocolate Medications clonazePAM 0.5 mg oral tablet = [...] Acute 01/01/21 8:29:00 EDT, 12/03/20 9:01:00 EST, [facility]/pharmacy #[id number], Partial fill upon patient request if [...] first tri scree n, normal amnio/microarray at [facility](Confirmed) 2, 3 Active Anxiety, depression, complex social [...] 14 Active 1Patient states last PAP at [facility] about three years ago was ASCUS [...] hydroureter; normal appearing urinary bladder; connected with [facility] 8Reports does not have an inhaler. [...]
--- OUTSIDE RECORDS SUMMARY | 2024-05-31 10:47 | XMS_ITS | Continuity of Care Document ---
Author Organization [facility] Address [address] [place] [id number]- Care Team Providers Care Workcell Operator Name Role Phone Paige SAMANIEGO, Edwin Primary Care Phys[id number] 07[facility] - 08/07/[address] [address]- Allergies, Adverse Reactions, Alerts Substance Reaction Severity Status ciprofloxacin Hives Active Other Food Allergy 1 Acute vomiting Skin rash Active sulfADIAZINE Hives Active Latex Hives Active Ciloxan 0.3% ophthalmic solution reaction Active 1red sauce, all citrus, chocolate Immunizations [...] Refills, Maintenance, 09/07/21 1:33:00 EST, Tablet, [id number], Partial fill upon patient request if the prescription is for a schedule II opioid drug., 158, cm, 1... Start Date: 09/07/21 Status: Ordered ondansetron 4 mg oral tablet, disintegrating 1 tablet = 4 mg, By Mouth, Every 8 hours, PRN Nausea & Vomiting, # 10 tablet, 0 Refills, Maintenance, 09/19/21 17:01:00 EST, Tablet, [id number], Partial fill upon patient [...] Date: 04/08/19 Stop Date: 08/06/19 Status: Ordered Zofran 4 mg oral tablet 1 tablet = 4 mg, By Mouth, Every 8 hours, PRN as needed for nausea/vomiting, # 6 tablet, 0 Refills,Maintenance, 12/03/21 11:06:00 EST, Tablet, [id number], Partial fill upon patient request if the prescription is for a schedule II opioid drug.... Start Date: 12/03/21 Status: Ordered Problem List Condition Confirmation Course Effective Dates Status Health St [facility] Informant Abnormal Pap smear of cervix 1 Confirmed Active H/O Abnormal first tri screen, normal amnio/microarray at [facility] 2, 3 Confirmed Active Abnormal chromosomal and [...] Confirmed Active 1Patient states last PAP at [facility] about three years ago was ASCUS [...] hydroureter; normal appearing urinary bladder; connected with [facility] 8Reports does not have an inhaler. 9Smokes [...] Sex Patient Care team information Personnel Name: Edwin Gibson MD Address: Address: [address] [place] [id number]- [place]
--- OUTSIDE RECORDS SUMMARY | 2024-05-31 10:47 | XMS_ITS | Continuity of Care Document ---
Author Organization [facility] Address [address] [place] [id number]- Care Team Providers Care Fruit Coordinator Name Role Phone Jessi Gomez DO Primary Care Physician Encounter [facility] [place] Date(s): 01/08/24 - 01/10/[address] [id number] Discharge Disposition: A-D/C Home Attending Physician: Shannan Wheeler DO Admitting Physician: Shannan Wheeler DO Referring Physician: Not on Staff, Referring MD Allergies, Adverse Reactions, Alerts Substance Reaction Severity Status ciprofloxacin Hives Active Dilaudid GI distres Active Other Food Allergy 1 Oranges, chocolate, tomatoes Acute vomiting Skin rash Active sulfADIAZINE Hives [...] 01/08/24 14:51:00 EDT, Route to Pharmacy Electronically, [facility]/pharmacy #[id number], Partialfill upon patient request if the prescription [...] Refills, Maintenance, 01/10/24 12:13:00 EDT, REC Powder, [id number], Partial fill upon patient request [...] 01/08/24 14:51:00 EDT, Route to Pharmacy Electronically, [facility]/pharmacy #[id number], Partial fill upon patient [...] 01/10/24 12:13:00 EDT, Route to Pharmacy Electronically, [facility]/pharmacy #[id number], Partial fill upon patient request if the prescription is f... Start Date: 01/10/24 Status: Ordered Toradol Inj 15 mg, Injection, Intramuscular, 01/10/24 6:00:00 EDT, Stop date 01/10/24 6:00:00 EDT Start Date: 01/10/24 Stop Date: 01/10/24 Status: Completed Problem List Condition Confirmation Course Effective Dates [...] Confirmed Active 1Patient states last PAP at [facility] about three years ago was [...] hydroureter; normal appearing urinary bladder; connected with [facility] 8Reports does not have an inhaler. [...] oldest [Reference Range]: 1 2 3 Height 157 cm (01/10/24 10:51 AM) 157 cm (01/10/24 7:10 AM) 157 cm (01/10/24 3:30 AM) Weight 79 kg (01/09/24 1:42 PM) Oxygen Saturation [94-100 %] 96 % (01/10/24 10:51 AM) 96 % (01/10/24 7:10 AM) 98 % (01/10/24 3:30 AM) Pulse Rate [55-90 bpm] 67 bpm (01/10/24 10:51 AM) 49 bpm *L* (01/10/24 7:10 AM) 60 bpm (01/10/24 3:30 AM) Body Mass Index [18.5-24.99 kg/m2] 32.05 kg/m2 *>HHI* (01/09/24 1:42 PM) Blood Pressure [90-138/55-84 mm Hg] 136/70mm Hg (01/10/24 10:51 AM) 130/80mm Hg (01/10/24 7:10 AM) 124/69mm Hg (01/10/24 3:30 AM) Respiratory Rate [16-30 br/min] 18 br/min (01/10/24 10:51 AM) 18 br/min (01/10/24 7:32 AM) 18 br/min (01/10/24 7:10 AM) Temperature [96.8-100.4 DegF] 98.3 DegF (01/10/24 10:51 AM) 98.1 DegF (01/10/24 7:10 AM) 97.6 DegF (01/10/24 3:30 AM) Mode of Delivery (Oxygen) Room air (01/10/24 10:51 AM) Room air (01/10/24 7:10 AM) Room air (01/10/24 3:30 AM) Blood pressure sites Arm, right (01/10/24 10:51 AM) Arm, right (01/10/24 7:10 AM) Arm, right (01/10/24 3:30 AM) Temperature Route Oral (01/10/24 10:51 AM) Oral (01/10/24 7:10 AM) Oral (01/10/24 3:30 AM) Social History Social History Type Response Tobacco Other: I smoke erum linn . Sex History and physical note * Jane Murray DO: PERFORM Event Display: History and Physical Hospital Authored Date: Patient: ??JACEK SOLIS ? Age:??28 Years?Sex:??Female?:??1995?? Chief Complaint Postoperative nausea and vomiting History of Present Illness Patient is a 28yo s/p total laparoscopic hysterectomy, BS, cystoscopy ureteroscopy with stent placement in setting of AUB and pelvic pain who presents to the ED with nausea and vomiting. She reports that when she was discharged she had nausea but it was not this bad. She continued to have intractable nausea and vomiting and lower abdominal pain from the pressure. Her current pain is 4/10. She denies any heavy vaginal bleeding, SOB, CP, fevers, chills. No other concerns at this time.?? Review of Systems All systems reviewed and negative except as noted above in HPI. Physical Exam Vitals & Measurements HR:??64??(Peripheral)?? RR:??18?? BP:??126/91?? SpO2:??97%?? Constitutional: Normal affect, no acute distress, well-developed.?? Respirations: Normal exam, not labored.?? Abdomen/GI: Soft, non-tender, and non-distended, no guarding, no rebound tenderness.??Abdominal incisions covered with??bandage.?? Extremities: No clubbing, cyanosis or edema present.?? Skin: No rash or jaundice. Normal for ethnicity.?? Neurological/Psychiatric: Appearance appropriate, mood and affect stable. Gynecologic: Deferred Assessment/Plan Assessment:??Patient is a 28yo POD#0 s/p uncomplicated total laparoscopic hysterectomy, BS, cystoscopy ureteroscopy with stent placement in setting of AUB and pelvic pain who presents to the ED with nausea and vomiting. While in the ED she received Zofran and Morphine. She continues to have intractable nausea and vomiting. Will admit to [facility] service for postoperative nausea control. IV Ativan, Benadryl and Zofran. Will order IV Morphine for pain while patient is not able tolerate PO. PO Tyl/Ibu/Oxy PRN. IV Fluids. Continue to monitor. ?? Nausea (R11.0):? - Intractable postoperative nausea and vomiting likely secondary to anesthesia - PRN IV Ativan, Benadryl and Zofran ordered - IV Fluids ?? Postoperative state (Z98.890):? - Pain: tyl/ibu/oxy PRN, IV Morphine while unable to tolerate PO - Bowel regimen: senna/miralax - Diet: regular - I/O: adequate - Encourage ambulation, Incentive spirometer use ?? Patient discussed with Dr. Ceballos, PGY4 and Dr. Wheeler, attending physician. OB History History?(0,1,0,2)? # 1 ?Baby 1 ?Outcome Date:??04/06/2019?Outcome or Result:??Vaginal ?Gest Age:??36 weeks 6 days ? Outcome:??Live ? Sex:??Male?Wt:?3114 g ? 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 # 2 ?Baby 1 ?Outcome Date:??09/01/2021?Outcome or Result:??Unknown ?Gest Age:??-- ? Outcome:??Live ? Sex:??Female Active Problem List Active Problem List Abnormal chromosomal and genetic finding on screening mother: (Medical) Abnormal Pap smear of cervix: (Medical) Patient states last PAP at [facility] about three years ago was ASCUS Anxiety, depression, complex social situation: (Medical) Not currently in therapy, states does not like zoom therapy . Prescribed zoloft and clonazepam by PCP. States that she currently feels stable. Anxiety, depression, complex social situation: (Medical) Asthma, exercise induced: (Medical) Reports does not have an inhaler. 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 Last saw renal as a child, has not seen since after her surgery in 2001 Marijuana use: (Medical) Smokes 2-3 times weekly Obese class I: (Medical) Scoliosis: (Medical) Seizure disorder: (Medical) Hx seizure age 1. Last seizure >2 yrs ago. Does not have neurologist. States last seizure was 3-4 years ago. Does not have a neurologist. Is not prescribed seizure medications but is prescribed clonazepam. Procedure/Surgical History Ureter implantation: 2001 Extraction of wisdom tooth Home Medications Acetaminophen: 650 mg = 2 tablet, By Mouth, Every 4 hours, PRN (Pain , Mild) Clonazepam: 0.5 mg, By Mouth, 2 times a day DiphenhydrAMINE: 25 mg = 1 tablet, By Mouth, Daily at bedtime Fexofenadine: 60 mg = 1 tablet, By Mouth, Daily at bedtime Fluticasone Nasal: 1spray, Inhalation, Daily Ibuprofen: 600 mg = 1 tablet, By Mouth, 4 times a day, PRN (for pain) Ondansetron: 4 mg = 1 tablet, By Mouth, Every 8 hours, PRN (as needed for nausea/vomiting) Oxycodone: 5 mg = 1 tablet, By Mouth, Every 6 hours, PRN (as needed for pain) Senna: 17.2 mg = 2 tablet, By Mouth, Daily at bedtime Sertraline: 50 mg, By Mouth, Daily, Take 50mg (1 tablet) by mouth for 3 weeks (21 days) then take 100mg (2 tablets) by mouth. Allergies Ciloxan 0.3% ophthalmic solution??(reaction) Dilaudid??(GI distres) Latex??(Hives) Other Food Allergy??(Oranges, chocolate, tomatoes, Acute vomiting, Skin rash) ciprofloxacin??(Hives) sulfADIAZINE??(Hives) Social History Alcohol Use: Never. Electronic Cigarette/Vaping Electronic Cigarette Use: Never. Employment/School Status: Homemaker. Exercise Self assessment: Good condition. Regular exercise: No. Home/Environment Living situation: Home/Independent. Lives with: Children. Feels unsafe at home: No. Nutrition/Health Diet: Regular. Sexual Sexually involved in last 6 months: Yes. Gender identity: Identifies as female. Gender of partner(s): Male. Substance Abuse Use: Current. Type: Marijuana. Other: Smokes 2-3 times weekly. Frequency: Smokes 2-3 x weekly. Tobacco Other: I smoke marijanna . Family History Mother: Gestational diabetes; Hypertension; Irritable bowel syndrome Father: Hypertension Hospital Progress note * Mavis Okeefe RN: PERFORM, SIGN, VERIFY Event Display: Progress Note Hospital Authored Date: [id number] Patient: JACEK SOLIS Age: 28 years Sex: Female : 1995 Associated Diagnoses: None Author: Mavis Okeefe RN Findings Problem Related to Alteration in Gastrointestinal : Alteration in Gastrointestinal Func/new 01/10/2024 3:00 EDT Alteration in GI status Related to Other: post op N/V Goals & Outcomes, Gastrointestinal Pt will achieve normal/improved fluid balance, Pt will maintain adequate GI function appropriate for pt, Pt will tolerate age appropriate diet prior to discharge Interventions, Gastrointestinal Assess/monitor pt for nausea, vomiting, Assess/monitor effects of re-hydration, Assess/monitor intake & output, Assess if pt tolerating diet BH Goals/Interventions, Gastrointestinal Yes Gastrointestinal, Problem Start 01/10/2024 4:07 Reviewed plan with, Gastrointestinal Patient Patient Progression, Gastrointestinal Plan Initiation . Narrative/Incidental Pt A/Ox4, no SOB, no CP, V/S stable. No acute events . c/o lower abdominal pain Given Morphine, no events of N/V. no s/s of bleeding. Pt comfortable slept well through the night. Ambulating from Bed to the Bathroom. Callbell within reached. Continously monitored.. Discharge Information Case Management Discharge Plan : Case Management Discharge Plan Data 01/08/2024 18:05 EDT Discharge Level of Care at [facility] 01/03/2024 6:28 EDT Discharge Level of Care at [facility]charge [facility] * Eduarda Pringle DO: PERFORM Event Display: Progress Note Hospital Authored Date: [id number] Patient: ??JACEK SOLIS ? Age:??28 Years?Sex:??Female?:??1995?? Subjective In for roundTrinh Recinos reports she continues to be nauseous. She just tried to eat something and was unable to tolerate it. She is not nauseous if she does not try to eat. Her pain has also increased. The pain is in the middle of her abdomen below her umbilical incision. She feels the morphine helps,but wears off after 4 hours. No vaginal bleeding. She has been ambulating. Review of Systems As noted in HPI, otherwise negative.?? Physical Exam Vitals & Measurements T:??98.4?F?? HR:??64??(Peripheral)?? RR:??18?? BP:??119/64?? SpO2:??98%?? HT:??157??cm?? WT:??79??kg?? BMI:??32.05?? Constitutional: Normal affect, no acute distress, well-developed.?? Respirations: Normal exam, not labored.?? Abdomen/GI: Soft, non-tender, and non-distended, no guarding, no rebound tenderness.??Abdominal incisions covered with??band??aids??without strikethrough Extremities: No clubbing, cyanosis or edema present.?? Skin: No rash or jaundice. Normal for ethnicity.?? Neurological/Psychiatric: Appearance appropriate, mood and affect stable. Gynecologic: Deferred Assessment/Plan Assessment:??Patient is a 28yo POD#1 s/p uncomplicated total laparoscopic hysterectomy, BS, cystoscopy, ureteroscopy with ureteral catheter placement in setting of AUB and pelvic pain and history of ureteral reimplantation. Ureteral catheters are removed. She was admitted on POD#0 for intractable na usea/vomiting. Currently using Reglan/Ativan and morphine/Toradol for nausea and pain. Also has Zofran ordered PRN. She is vitally stable with a benign abdominal exam. Likely post op nausea with possible pain element as well. Will schedule nausea medications and make sure ketorolac is being given as ordered as has only been using morphine. ? Nausea (R11.0): ??- Intractable postoperative nausea and vomiting likely secondary to anesthesia and pain ??- PRN IV Ativan, Benadryl and Zofran ordered ??- Scopalamine patch in??place ??- IV Fluids ? Postoperative state (Z98.890): ??- Pain: tyl/oxy PRN, IV Morphine and IV ketorolac while unable to tolerate PO ??- Bowel regimen: senna/miralax ??- Diet: regular ??- I/O: adequate ??- Encourage ambulation, Incentive spirometer use ?? Hypokalemia (E87.6):? - repletion ordered ?? Patient discussed with Dr. Sutherland. Intake and Output Intake and Output Results?? This visit (24 hour periods starting at 07:00 EDT)? 01/09/24 *?? 01/08/24?? 01/07/24?? Total Summary?Intake mL?? 100?? 250.02?? --?Output mL?? --?? --?? --?Fluid Balance ?? 100?? 250.02?? --?? Intake (2)?Potassium Chloride mL?? 100?? --?? --?Sodium Phosphate mL?? --?? 250.02?? --?Total?? 100?? 250.02?? --?? Output (0)? Counts (0)? * This column has not completed the indicated time period.?? * Agustín Sutherland MD: PERFORM Event Display: Progress Note Hospital Authored Date: [id number] Attending Attestation: I have seen and evaluated this patient on hospital rounds. Jacek is feelingbetter after IV fluids, antiemetics, and morphine. I have discussed the case and its management with the resident and agree with the findings and plan as documented in the resident???s note. Note * Lin MONIQUE Kenzie: PERFORM Event Display: Discharge/Transfer Note Hospital Authored Date: [id number] Patient: ??JACEK SOLIS ? Age:??28 Years?Sex:??Female?:??1995?? Admit Date Admission Date: 01/08/2024 Discharge Date 01/10/24 Discharge Diagnoses Hypokalemia, 01/09/2024 Nausea, 01/08/2024 Postoperative state, 01/08/2024 Vomiting, [facility]08/[facility] Patient is a 28yo aadmitted??POD#0 s/p uncomplicated total laparoscopic hysterectomy, BS, cystoscopy ureteroscopy with stent placement in setting of AUB and pelvic pain for intractable nausea and vomiting. Labs and exam were benign overall, and N/V thought to be secondary to anesthesia. She was treated with scheduled zofran, reglan,??and ativan, as well as a scopolamine patch. She was discharged home on POD2. Objective/Physical Exam on Day of Discharge Vitals & Measurements T:??98.3?F?? HR:??67??(Peripheral)?? RR:??18?? BP:??136/70?? SpO2:??96%?? HT:??157??cm?? WT:??79??kg?? BMI:??32.05?? Constitutional: Normal affect, no acute distress, well-developed.?? Respirations: Normal exam, not labored.?? Abdomen/GI: Soft, non-tender, and non-distended, no guarding, no rebound tenderness.??Abdominal incisions covered with??steristrips with??old dried blood.?? Extremities: No clubbing, cyanosis or edema present.?? Skin: No rash or jaundice. Normal for ethnicity.?? Neurological/Psychiatric: Appearance appropriate, mood and affect stable. Gynecologic: Deferred Assessment/Plan Assessment:??Patient is a 28yo POD#2 s/p uncomplicated total laparoscopic hysterectomy, BS, cystoscopy, ureteroscopy with ureteral catheter placement in setting of AUB and pelvic pain and history of ureteral reimplantation. Ureteral catheters are removed. She was admitted on POD#0 for intractable na usea/vomiting. Her vomiting has resolved and her nausea is much improved (states reglan has been the most helpful). She is having constipation, but passing gas. She is tolerating clears at this time.She is safe for discharge home. A prescription for reglan was sent to her pharmacy. A bowel regimen, including senna, miralax, and simethicone has been prescribed. She was advised to call or return to [facility] if she has severe pain not controlled by medications, intractable nausea and vomiting, stops passing gas, or has a fever at home. She will follow up for her post-op visit on 01/20/24. ?? Hypokalemia (E87.6):? -s/p repletion ?? Nausea (R11.0):? - Intractable postoperative nausea and vomiting likely secondary to anesthesia ??- Rx for reglan sent to pharmacy ??- Scopalamine patch in place- remove 72 hours post-op (instructed no to touch her eyes and to wash her hands after removal) - return precautions discussed ?? Postoperative state (Z98.890):? - Pain: tylenol, ibuprofen, and oxycodone prn at home ??- Bowel regimen: senna/miralax, simethicone prescribed ??- follow up 01/20/24 for post-op visit ?? Patient seen and plan discussed with Dr. Encinas, attending physician. Future Appointments Thursday 1:00 PM EDT ?? With: Doug Barrera MD Where: [facility] [address] [place] [address]- Status: Pending Thursday 9:20 AM EDT ?? Where: [facility]ceiving [facility] [address] [place] [id number]- Status: Pending Thursday 9:40 AM EDT ?? Where: [facility] [address] [place] [id number]- Status: Pending Discharge Medications ???Acetaminophen (acetaminophen 325 mg oral tablet)???Clonazepam (clonazePAM 0.5 mg oral tablet)???Ibuprofen (ibuprofen 600 mg oral tablet)???Metoclopramide (metoclopramide 10 mg oral tablet)???Ondansetron (ondansetron 4 mg oral tablet, disintegrating)???Oxycodone (oxyCODONE 5 mg oral tablet)???Polyethylene Glycol 3350 (MiraLax oral powder for reconstitution)???Senna (Senna 8.6 mg oral tablet)???Sertraline (sertraline 100 mg oral tablet)???Simethicone (simethicone 80 mg oral tablet, chewable) Immunizations during Hospitalization Vaccine Date Status tetanus/diphtheria/pertussis, acel(Tdap) 04/29/2021 Given SARS-CoV-2 (COVID-19) mRNA-1273 vaccine 04/2021 Recorded SARS-CoV-2 (COVID-19) mRNA-1273 vaccine 03/2021 Recorded influenza virus vaccine, inactivated 12/28/2020 Given Patient Instructions Call the office with any concerns including:?? Vaginal bleeding more than spotting Fever of 100.4 or greater Foul-smelling vaginal discharge Redness/swelling/drainage at incision Difficulty or burning with urination?? Nausea and vomiting with inability to tolerate food,?? Pain not controlled by your prescribed medications Shortness of breath or chest pain. Swelling of the extremities. Dizziness or heart palpitations ?? General Instructions: - Do not drive while taking opioid medications. Do not drive for 1-2 weeks - Avoid lifting anything 15 lbs or greater until cleared by doctor. - Stairs are OK but avoid multiple trips/ skipping steps and go slowly. - Walk as often as you are able. - Do not put anything in the vagina. No intercourse, tampons, or douching - Continue your stool softeners (examples: Colace/docusate, senna, Miralax) until no longer taking opioids (e.x. oxycodone) and stools are regular. - Shower as usual. Do not scrub the incisions. Pat the skin dry. Avoid tubs/ soaking/ pools. ?? * Ce SAMANIEGO, Jaswant Hannon: PERFORM Event Display: Discharge/Transfer Note Hospital Authored Date: I have seen and examined Jacek. ??I have discussed her care with ??Lin and I agree with the noted management plan. * Fannie Hall RN: PERFORM Event Display: Patient Education/Instruction Authored Date: Inpatient Adult Discharge Instructions. [address] [address] Name: JACEK SOLIS : 1995?? Visit: 01/08/2024 23:19?? Current Date: 01/10/2024 12:22 ?? Account: [id number]?? Inpatient Adult Discharge Instructions We would like to thank you for allowing us to assist you with your healthcare needs. The following includes patient education materials and information regarding your injury/illness. Our entire staffstrives to provide an excellent experience for our patients and their families. PLEASE ENSURE YOU FOLLOW-UP PER THE INSTRUCTIONS BELOW! ?? YOUR OPINION IS IMPORTANT TO US! Please complete the survey you may receive by mail or email. Your feedback will be used to make improvements to the healthcare experiences of our patients and their families. Surveys are administered by [employer] ?? If further treatment with your primary care physician or another doctor is recommended, it is important for you to keep the appointment. Call your primary care physician or return to the Emergency Department immediately if your condition worsens, fails to improve, or new symptoms develop. If you need to find a doctor, you can call [facility] [employer] [facility] for a referral at [phone] or toll free at [phone]) or log in to [email or web address].. ?? [facility], in keeping with [facility] guidance, no longer requires face masks for staff, patientsor visitors in most situations. Similiar to time spent indoors at other locations, there is the chance that you were exposed to repiratory viruses during your time with us (such as flu or COVID-19). If you develop symptoms concerning for a viral respiratory infection, please seek testing (and treatment if indicated) from your medical provider or home test kit. ?? You can view and manage your care through the patient portal or by using a health care aaron of your choosing. [employer] is a website that allows you to securely view your medical information including your hospital discharge summary, office visit summaries, medications and follow-up visits. You can also request appointments, renew medications, and request access to your medical information using a health care aaron of your choosing, or just ask a question. You can enroll at [email or web address] or register during your next office visit. You have been discharged from [facility], Patient Care Unit: D3B??. If you have any questions regarding these instructions, including results of studies pending, afteryou leave, please call us and we will be happy to assist you 11/05. [facility] Your Care Team Attending Physician Shannan Wheeler DO?? Consulting Providers Shannan Wheeler DO?? Discharging Providers Kenzie Ceballos DO Reason for Your Visit post op pain from hysterectomy performed today, having stress incontinence with dry heaving. Has not been able to take her pain medication as prescribed due to the pain?? Your Diagnosis Hypokalemia Nausea Postoperative state Vomiting Tests Performed Below is a partial list of the tests performed during your hospitalization. You may have had other tests and procedures not included in this list. Please discuss all test results with your provider. Basic Metabolic Panel CBC CBC w/ Differential Comprehensive Metabolic Panel COVID-19, RSV, and Flu A/B, Rapid PCR INR Lactate Level LIPASE PHOSPHORUS Serum Quantitative PTT Urinalysis w/hold for Urine Culture Hold Blue Top Tube (HOLD BLUE TUBE)?? Hold Lavender Tube (BB)?? Primary Care Provider Jessi Gomez DO? Advance Directive Health Care Proxy on File No Patient refuses to discuss Discharge Vitals Temperature: 98.3 DegF Height: 157 cm Pulse Rate: 67 bpm Weight: 79 kg Respiratory Rate: 18 br/min Body Mass Index:??32.05 kg/m2??Critical Systolic Blood Pressure: 136 mm Hg Body surface area: 1.86 Diastolic Blood Pressure: 70 mm Hg ?? Oxygen Saturation: 96 % ?? Studies Pending All studies ordered during this hospital stay have been completed unless listed below. Please discuss all pending results with your provider listed above in these instructions. ?? Hold Blue Top Tube (HOLD BLUE TUBE)?? Hold Lavender Tube (BB)?? What to do next Instructions From Your Doctor ?? Orders? 01/10/24 12:10:00 EDT?? Scheduled Follow-Up Appointments Thursday 1:00 PM EDT ?? With: Doug Barrera MD Where: [facility] [address] [place] [address]- Status: Pending Thursday 9:20 AM EDT ?? Where: [facility] - Warehouse Receiving Clerk [address] [place] [address]- Status: Pending Thursday 9:40 AM EDT ?? Where: [facility] - Warehouse Receiving Clerk [address] [place] [address]- Status: Pending Discharge Medications JACEK SOLIS :1995 Visit Date:01/08/2024 Medications: Please continue your medications until treatment is completed or stopped by your provider. Medications not listed below should be discontinued. Discuss any questions related to medications with your provider. What How Much When Instructions Next Dose New Metoclopramide (metoclopramide 10 mg oral tablet) 1 tab(s) Oral 4 times a day Pickup at [facility]/pharmacy #[id number] 4pm New Polyethylene Glycol 3350 (MiraLax oral powder for reconstitution) 17 gram Oral Daily dissolve in water or juice ?? Pickup at [facility]/pharmacy #[id number] today New Simethicone (simethicone 80 mg oral tablet, chewable) 1 tab(s) Chew 4 times a day as needed for as needed for gas [facility] Changed Clonazepam (clonazePAM 0.5 mg oral tablet) 1 tab(s) Oral Twice a day tonight Changed Sertraline (sertraline 100 mg oral tablet) 1 tab(s) Oral Daily at Bedtime 01/10 Unchanged Acetaminophen (acetaminophen 325 mg oral tablet) 2 tab(s) Oral Every 4 hours as needed for Pain , Mild as needed Unchanged Ibuprofen (ibuprofen 600 mg oral tablet) 1 tab(s) Oral 4 times a day as needed for for pain as needed Unchanged Ondansetron (ondansetron 4 mg oral tablet, disintegrating) 1 tab(s) Oral Every 8 hours as needed for as needed for nausea/vomiting as needed Unchanged Oxycodone (oxyCODONE 5 mg oral tablet) 1 tab(s) Oral Every 6 hours as needed for as needed for pain resume home schedule Unchanged Senna (Senna 8.6 mg oral tablet) 2 tab(s) Oral Daily at Bedtime [facility] Pharmacy Information [facility]/pharmacy #[id number]: [address], [place] [id number] [phone] Prescription Given During Visit Metoclopramide (metoclopramide 10 mg oral tablet) - 1 tablet = 10 mg, By Mouth, 4 times a day, # 120 tablet, 0 Refills, [facility]/pharmacy #1157, [address] [place] [phone]?? Polyethylene Glycol 3350 (MiraLax oral powder for reconstitution) - 17 Gm, By Mouth, Daily, # 255 Gm, 0 Refills, dissolve in water or juice, [facility]/pharmacy #1157, [address] [place] [phone]?? Simethicone (simethicone 80 mg oral tablet, chewable) - 1 tablet = 80 mg, Chew, 4 times a day, # 12tablet, 0 Refills, [facility]/pharmacy #1157, [address] [place] [phone]?? Laboratory Results Below is a partial list of the most recent Laboratory test results done prior to this discharge. You may have had other tests and procedures not included in this list. Please discuss all test resultswith your provider. Basic Metabolic Panel (01/09/2024) ???Sodium - 147 mmol/L???Potassium - 3.2 mmol/L???Chloride - 112 mmol/L???Bicarbonate Level - 24 mmol/L???Anion Gap - 11???Glucose Level - 96 mg/dL???BUN - 5 mg/dL???Creatinine-Blood - 0.6 mg/dL???Estimated GFR Creatinine - 124 ML/MIN/1.73 M2???Calcium - 8.1 mg/dL CBC (01/09/2024) ???WBC - 7.1 k/mm3???RBC - 3.31 m/mm3???Hgb - 10.7 Gm/dL???Hct - 30.8 %???MCV - 93.1 femtoliters???MCH - 32.3 pg???MCHC - 34.7 g/dL???Platelet Count - 175 k/mm3???RDW-SD - 43.6 femtoliters???MPV - 10.5 femtoliters???Nucleated RBC (Automated) - 0.0 #/100 WBC'S???Abs. NRBC - 0.0 k/mm3 CBC w/ Differential (01/08/2024) ???WBC - 10.9 k/mm3???RBC - 4.20 m/mm3???Hgb - 13.4 Gm/dL???Hct - 37.8 %???MCV - 90.0 femtoliters???MCH - 31.9 pg???MCHC - 35.4 g/dL???Platelet Count - 275 k/mm3???RDW-SD - 40.8 femtoliters???MPV - 10.6 femtoliters???Nucleated RBC (Automated) - 0.0 #/100 WBC'S???Abs. NRBC - 0.0 k/mm3???Abs. Neut - 9.7 k/mm3???Abs. Lymph - 0.8 k/mm3???Abs. [place] - 0.3 k/mm3???Abs. Eo - 0.0 k/mm3???Abs. Baso - 0.0 k/mm3???Neut % - 89.5 %???Lymph % - 7.2 %???[place] % - 2.9 %???Eos % - 0.0 %???Baso % - 0.1 %???Imm Gran - 0.3 %???Abs. Imm Gran - 0.0 k/mm3 Comprehensive Metabolic Panel (01/08/2024) ???Sodium - 142 mmol/L???Potassium - 3.7 mmol/L???Chloride - 105 mmol/L???Bicarbonate Level - 24 mmol/L???Anion Gap - 13???Glucose Level - 139 mg/dL???BUN - 7 mg/dL???Creatinine-Blood - 0.6 mg/dL???Estimated GFR Creatinine - 125 ML/MIN/1.73 M2???Calcium - 9.0 mg/dL???Protein, Total - 6.5 Gm/dL???Alb umin - 4.4 Gm/dL???AG Ratio - 2.1???Alkaline Phosphatase - 51 units/L???AST (SGOT) - 15 units/L???ALT (SGPT) - 15 units/L???Bilirubin, Total - 0.3 mg/dL COVID-19, RSV, and Flu A/B, Rapid PCR (01/09/2024) ???Influenza A PCR - NEGATIVE???Influenza B PCR - NEGATIVE???RSV PCR - NEGATIVE???COVID-19 PCR Specimen Source - NASAL???COVID-19 PCR Result - NEGATIVE INR (01/08/2024) ???INR - 1.1???Protime (PT) - 11.9 seconds Lactate Level (01/09/2024) ???Lactate - 0.7 mmol/L LIPASE (01/08/2024) ???Lipase - 11 units/L PHOSPHORUS (01/08/2024) ???Phosphorus - 1.9 mg/dL Serum Quantitative (01/08/2024) ? ?Blood - <1 mIU/mL PTT (01/08/2024) ???APTT - 24.1 seconds Urinalysis w/hold for Urine Culture (01/09/2024) ???Appear/Color, Urine - DARK YELLOW???Specific Codorus, Urine - 1.016???pH, Urine - 8.0???Albumin,Urine - 1+???Glucose, Urine - 2+???Ketones, Urine - NEGATIVE???Bilirubin, Urine - NEGATIVE???Hemoglobin, Urine - 3+???Nitrite, Urine - POSITIVE???Leukocyte, Urine - NEGATIVE???Urobilinogen - NORMAL???WBC's, Urine - 1 /HPF? ?RBC's, Urine - >182 /HPF? ?Squamous Epith - 1 /HPF? ?Mucus - SLIGHT? ?Hold Urine Culture - Testing available 48 hours from time of collection. Allergies (NKA means No Known Allergies) Ciloxan 0.3% ophthalmic solution??(reaction) Dilaudid??(GI distres) Latex??(Hives) Other Food Allergy??(Oranges, chocolate, tomatoes, Acute vomiting, Skin rash) ciprofloxacin??(Hives) sulfADIAZINE??(Hives) Problems Active Problems??(16) Abnormal chromosomal and genetic finding on screening mother?? Abnormal Pap smear of cervix?? Anxiety, depression, complex social situation?? Anxiety, depression, complex social situation?? Asthma, exercise induced?? GERD (gastroesophageal reflux disease)?? H/O Abnormal first tri screen, normal amnio[facility]microarray at [facility]?? 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 History of delivery, currently ?? History of stomach ulcers?? Hx of depression, currently ?? Kidney disorder?? Marijuana use?? Obese class I?? Scoliosis?? Seizure disorder?? Education Materials Below is the list of Educational Leaflet Providered with your Discharge Instructions. Valuables and Belongings I fully understand and agree that [facility] accepts no responsibility for all my personal property including clothing, toilet articles, radios, jewelry, dentures, hearing aids, rings, money, or any other property that is in my possession or is brought to me after admission. I understand certain valuables may be placed in a hospital safe for a short period of time. I understand that the hospital is not liable for loss or damage due to accident, fire, or other natural occurrence while said property is in the safe. I accept full responsibility for any personal property that I keep with me, and will not hold the hospital responsible in case of loss or disappearance. I acknowledge that i have been encouraged to send valuables and belongings home. ?? Review of Valuable and Belonging List: With patient Date for Pt to Sign Valuables/Belongings: 01/09/24 01:44:00 ?? Other Discharge Information ? Pulmonary Rehab Status?? Pulmonary Rehab Discharge Status?? Respiratory Rate: 18 br/min ? Common Emergency Awareness Tips IS IT A STROKE? Act FAST and Check for these signs: FACE Does the face look uneven? ARM Does one arm drift down? SPEECH Does their speech sound strange? TIME Call at any sign of stroke ?? Heart Attack Signs Chest discomfort: Most heart attacks involve discomfort in the center of the chest and lasts more than a few minutes, or goes away and comes back. It can feel like uncomfortable pressure, squeezing, fullness or pain. Discomfort in upper body: Symptoms can include pain or discomfort in one or both arms, back, neck, jaw or stomach. Shortness of breath: With or without discomfort. Other signs: Breaking out in a cold sweat, nausea, or lightheaded. Remember, MINUTES DO MATTER. If you experience any of these heart attack warning signs, call to get immediate medical attention! ?? Smoking can increase your chances of developing chronic health problems and can cause harmful effects to other family members in your house. If you smoke, you are strongly encouraged to quit. Please call [facility] [employer] Link at [phone] or [phone] ([phone]) or log in to [email or web address] for referrals to smoking cessation programs. ?? 068 Suicide & Crisis Lifeline is available 11/05 if you or someone you know needs to find a reason to keep living. By calling 898 you'll be connected to a skilled, trained counselor at a crisis center in your area. INPATIENT DISCHARGE INSTRUCTIONS SIGNATURE PAGE JACEK SOLIS Location:[facility] Registration Date and Time:01/08/2024 23:19 EDT Primary Care Physician: Jessi Gomez DO, Attending Physician: Shannan Wheeler DO, I JACEK SOLIS, have received the above patient education materials/instructions and have verbalized understanding. If ambulance or transport services are being used I further acknowledge being given a choice of service. ?? If you need to contact me, please call me at this number: . Patient/Long Line Teamster Name: Patient/Long Line Teamster Signature: Relationship to Patient: Witness Name/Signature: Date: Patient Care team information Care Team Personnel Name: Mavis Okeefe RN Position: [facility] RN Member Role: Primary Care Nurse Name: Alanis Oneal [place] Position: [facility] DIALLO [place]ARSON Member Role: Lifetime Consulting Physician Name: Fannie Hall RN Position: [facility] RN Member Role: Primary Care Nurse Name: Jessi Gomez DO Position: [facility] Physician (General Medicine) Member Role: PCP Address: Address: [address] [place] [address]- Name: Darby Trevizo NP [facility] Professional Member Role: Primary Care Nurse Address: Address: [address] [place] [address]- Care Team Related Persons Name: RADHA DOVE Name: DEXTER CELESTIN Address: home [address] [place] [address] Name: BALA MAYER Address: home [address] [place] [address] Name: LARISA VILLA Address: [employer] Address: home [address] [place] [address] [place] Name: LAXMI VILLA Address: [employer] Address: home [address] [place] [address] [place] Name: S[place]A VILLA Address: home [address] [place] [address]
--- OUTSIDE RECORDS SUMMARY | 2024-05-31 10:47 | XMS_ITS | Continuity of Care Document ---
Author Organization [facility] Address [address] [place] [address]- Care Team Providers Care Tongue Lining Stitcher Name Role Phone Paige SAMANIEGO, Edwin Primary Care Physician [phone] Encounter [facility] Date(s): 11/30/20 - 12/30/[address] [address]- Allergies, Adverse Reactions, Alerts Substance Reaction Severity [...] 01/01/21 8:29:00 EDT, 12/03/20 9:01:00 EST, [facility]/pharmacy #[id number], Partial fill upon patient [...] first tri scree n, normal amnio/microarray at [facility](Confirmed) 2, 3 Active Anxiety, depression, complex [...] 14 Active 1Patient states last PAP at [facility] about three years ago was [...] hydroureter; normal appearing urinary bladder; connected with [facility] 8Reports does not have [...]
--- OUTSIDE RECORDS SUMMARY | 2024-05-31 10:48 | XMS_ITS | Continuity of Care Document ---
Author Organization [facility] Address [address] [place] [address]- Care Team Providers Care Irrigation Worker Name Role Phone Edwin Gibson MD Primary Care Physician [phone] Encounter [facility] Date(s): 01/01/21 - 01/31/21 [facility] [address] [place] [address] [id number] Attending Physician: Anali Godfrey Admitting Physician: Admtr, Anali Referring Physician: Admtr, Ar8 Allergies, Adverse Reactions, [...] first tri scree n, normal amnio/microarray at [facility](Confirmed) 2, 3 Active Anxiety, depression, complex social [...] 14 Active 1Patient states last PAP at [facility] about three years ago was ASCUS 2Son [...] hydroureter; normal appearing urinary bladder; connected with [facility] 8Reports does not have an [...]
--- OUTSIDE RECORDS SUMMARY | 2024-05-31 10:48 | XMS_ITS | Continuity of Care Document ---
Author Organization [facility] Address [address] [place] [address]- Care Team Providers Care Resident Assistant Name Role Phone Paige SAMANIEGO, Edwin Primary Care Physician [phone] En[place] [facility] Date(s): 09/03/23 - 10/03/[address] [address] Allergies, Adverse Reactions, Alerts Substance Reaction Severity Status ciprofloxacin Hives Active sulfADIAZINE Hives Active Dilaudid Active Latex Hives Active Ciloxan 0.3% ophthalmic [...] Abnormal first tri screen, normal amnio/microarray at [facility] 2, 3 Confirmed Active Abnormal chromosomal [...] Confirmed Active 1Patient states last PAP at [facility] about three years ago was [...] hydroureter; normal appearing urinary bladder; connected with [facility] 8Reports does not have an inhaler. [...] HOSPITAL Outreach Member Role: PCP Address: Address: [address] [place] [address]- Name: Alains Oneal [place] Position: [facility] [place] Member Role: Lifetime Consulting Physician Name: Santhosh HAGER, Darby Gr Position: [facility] PCO Associate Professional Member Role: Primary Care Nurse Address: Address: [address] [place] [address]- Care Team Related Persons Name: RADHA DOVE Name: DEXTER CELESTIN Address: home [address] [place] [address] Name: BALA MAYER Address: [address] [place], [place] Name: LARISA VILLA Address: [employer] Address: [address] [place] [address] [place] Name: LAXMI VILLA Address: [employer] Address: home [address] [place], [place] Name: [place] V[place] Address: home [address] [place] [address]
--- OUTSIDE RECORDS SUMMARY | 2024-05-31 10:48 | XMS_ITS | Continuity of Care Document ---
Author Organization [facility] Address [address] [place] [address]- Care Team Providers Care Hide Sorter Name Role Phone Jason Jessi MONIQUE Primary Care Physician ( [phone] En[place] [facility] Date(s): 01/07/24 - 03/18/[address] [address] Attending Physician: Not on Staff, Attending [...] 01/08/24 14:51:00 EDT, Route to Pharmacy Electronically, [facility]/pharmacy #[id number], Partialfill upon patient request if the prescription [...] 01/08/24 14:51:00 EDT, Route to Pharmacy Electronically, [facility]/pharmacy #[id number], Partial fill upon patient [...] Confirmed Active 1Patient states last PAP at [facility] about three years ago was [...] hydroureter; normal appearing urinary bladder; connected with [facility] 8Reports does not have an inhaler. [...] Team Personnel Name: Mavis Okeefe RN Position: [facility] RN Member Role: Primary Care Nurse Name: Alanis Oneal [place] Position: [facility] [place] Office Staff Member Role: Lifetime Consulting Physician Name: Fannie Hall RN Position: [facility] RN Member Role: Primary Care Nurse Name: Jessi Gomez DO Position: [facility] Physician (General Medicine) Member Role: PCP Address: Address: [address] [facility] [place] [address]- [place] Name: Darby Trevizo NP Position: [facility] PCO Associate Professional Member Role: Primary Care Nurse Address: Address: [address] [place] [address] [facility] [place] [address]- Care Team Related Persons Name: RADHA DOVE Name: DEXTER CELESTIN Address: home [address] [place] [address] Name: BALA MAYER Address: [place] [address] Name: LARISA VILLA Address: [employer] Address: [place] [address] [place] Name: LAXMI VILLA [facility] Address: [address] Name: [place] Address: [place] [address]
--- OUTSIDE RECORDS SUMMARY | 2024-05-31 10:48 | XMS_ITS | Continuity of Care Document ---
Author Organization [facility] ter Address [address] [place] [address]- Care Team Providers Care Pocketed Spring Assembler Name Role Phone Jessi Gomez DO Primary Care Physician Encounter [facility] [place] Date(s): 01/08/24 - 01/08/[address] [address] Discharge Disposition: A-D/C Home Attending Physician: Shannan Wheeler DO Admitting Physician: Shannan Wheeler DO Referring Physician: Shannan Wheeler DO Allergies, Adverse Reactions, Alerts Substance Reaction [...] 01/08/24 14:51:00 EDT, Route to Pharmacy Electronically, [facility]/pharmacy #[id number], Partialfill upon patient request if the prescription is fo... Start Date: 01/08/24 Status: Ordered Gabrielle Allergy 60 mg oral tablet 1 [...] Refills, Maintenance Start Date: 03/24/23 Status: Ordered clonazePAM 0.5 [...] opioid drug. Start Date: 03/24/23 Status: Ordered ibuprofen 600 mg oral tablet 600 mg, 1, tablet, By Mouth, 4 times a day, PRN, # 50 tablet, Refills 0, Tot. Refills 0, Maintenance, for pain, 01/08/24 14:51:00 EDT, Route to Pharmacy Electronically, [facility]/pharmacy #[id number], Partial fill upon patient request if the prescription is for a... Start Date: 01/08/24 Status: Ordered ondansetron 4 mg oral tablet, [...] 01/08/24 14:51:00 EDT, Route to Pharmacy Electronically, [facility]/pharmacy #[id number], Partial fill upon patient request if the prescription is for a schedule I... Start Date: 01/08/24 Status: Ordered sertraline 50 mg oral tablet [...] Abnormal first tri screen, normal amnio/microarray at [facility] 2, 3 Confirmed Active Abnormal [...] Confirmed Active 1Patient states last PAP at [facility] about three years ago was ASCUS [...] hydroureter; normal appearing urinary bladder; connected with [facility] 8Reports does not have an inhaler. 9Smokes [...] oldest [Reference Range]: 1 2 3 Height 157.5 cm (01/08/24 11:12 AM) 157.5 cm (01/07/24 12:08 PM) Weight 79.4 kg (01/08/24 11:12 AM) 79.7 kg (01/07/24 12:08 PM) Oxygen Saturation [94-100 %] 95 % (01/08/24 4:30 PM) 96 % (01/08/24 4:00 PM) 97 % (01/08/24 3:45 PM) Pulse Rate [55-90 bpm] 71 bpm (01/08/24 11:12 AM) Body Mass Index [18.5-24.99 kg/m2] 32.01 kg/m2 *>HHI* (01/08/24 11:12 AM) 32.13 kg/m2 *>HHI* (01/07/24 12:08 PM) Blood Pressure [90-138/55-84 mm Hg] 120/73mm Hg (01/08/24 4:00 PM) 121/94mm Hg (01/08/24 3:45 PM) 126/77mm Hg (01/08/24 3:30 PM) Respiratory Rate [16-30 br/min] 17 br/min (01/08/24 4:30 PM) 15 br/min *L* (01/08/24 4:00 PM) 21 br/min (01/08/24 3:45 PM) Temperature [96.8-100.4 DegF] 97.6 DegF (01/08/24 3:45 PM) 97.1 DegF (01/08/24 3:15 PM) 97.8 DegF (01/08/24 11:12 AM) Liters per Minute 6 L/min (01/08/24 3:08 PM) Mode of Delivery (Oxygen) Room air (01/08/24 4:00 PM) Room air (01/08/24 3:30 PM) Simple face mask (01/08/24 3:08 PM) Blood pressure sites Arm, right (01/08/24 4:00 PM) Arm, right (01/08/24 3:45 PM) Arm, right (01/08/24 3:15 PM) Temperature Route Temporal (01/08/24 3:45 PM) Temporal (01/08/24 3:15 PM) Temporal (01/08/24 11:12 AM) Dry Weight 79.4 kg (01/08/24 11:12 AM) 79.7 kg (01/07/24 12:08 PM) Weight Obtained Via Standing scale (01/08/24 11:12 AM) Dry Weight Obtained Via Standing scale (01/08/24 11:12 AM) Patient/family stated (01/07/24 12:08 PM) Social History Social History Type Response Tobacco Other: I smoke erum linn . Sex Note * Elizabeth Payne RN: PERFORM Event Display: Discharge/Transfer Note Hospital Authored Date: [id number] Nursing Discharge Note Entered On: 01/08/2024 18:05 EDT Performed On: 01/08/2024 18:05 EDT by Elizabeth Payne RN Nursing Discharge Note 2 Discharge Time : 01/08/2024 18:05 EDT Discharge Level of Care at Discharge : Home/Intermediate/Foster Care Patient Left Unit Via : Wheelchair Patient Accompanied Off Unit with : Responsible adult DC Instructions Provided & Signed by Pt : Yes Patient Understands D/C Instructions : Yes Verbalized Understanding of D/C Plan By : Significant other Patient Instructions Discharge Signed : Yes Did Pt have Specialty Bed or Wound Vac : No Elizabeth Payne RN - 01/08/2024 18:05 EDT * Elizabeth Payne RN: PERFORM Event Display: Patient Education/Instruction Authored Date: [id number] Surgery Adult Discharge Instructions [place] [id number] Name: JACEK WILL : 1995?? Visit: 01/08/2024 10:25?? Current Date: 01/08/2024 17:05 ?? Account: [id number]?? Surgery Discharge Instructions We would like to thank [...] and their families. Surveys are administered by [employer] ?? If further treatment with your primary care physician or another doctor is recommended, it is important for you to keep the appointment. Call your primary care physician or return to the Emergency Department immediately if your condition worsens, fails to improve, or new symptoms develop. If you need to find a doctor, you can call [facility] Ready for a referral at [phone] or toll free at [phone]'s Realty [phone] ([phone]) or log in to [email or web address].. ?? [facility], in keeping with [facility] guidance, no longer requires face masks [...] a health care aaron of your choosing. [employer] is a website that allows you to securely view your medical information including your hospital discharge summary, office visit summaries, medications and follow-up visits. You can also request appointments, renew medications, and request access to your medical information using a health care aaron of your choosing, or just ask a question. You are entitled to know the individuals who participated in your treatment. This information is available within your medical record and will be provided upon your request. You can enroll at [email or web address] or register d uring your next office visit. You have been discharged from [facility], Patient Care Unit: [facility]??. If you have any questions regarding these instructions after you leave, please call us and we will be happy to assist you. [facility] Your Care Team Attending Physician Shannan Wheeler DO?? Consulting Providers Shannan Wheeler DO?? Discharging Providers Eduarda Pringle DO Reason for Admission AUB DYSMENORRHEA TOTAL LAP HYST BSO Primary Care Provider Jessi Gomez DO? Advance Directive Health Care Proxy on File No What to do next Instructions From Your Doctor ?? Orders? 01/08/24 14:50:00 EDT?? Instructions from your Care Team Medications last administered Tylenol 12:15pm, Gabapentin 600mg, Celebrex 400mg, Famotidine 20mg, Pyridium 200mg at 11:41am Benadryl 25mg at 4:19pm Scheduled Follow-Up Appointments Thursday 1:00 PM EDT ?? With: Doug Barrera MD Where: [facility] [address] [place] [address]- Status: Pending Thursday 9:20 AM EDT ?? Where: [facility] Operator [address] [place] [address]- Status: Pending Thursday 9:40 AM EDT ?? Where: [facility] [facility] [address] [place] [address]- Status: Pending You Need to Schedule the Following Appointments Follow Up with??Shannan Wheeler DO Where: [address] [place] [address] [facility] [place] [id number]- Discharge Medications JACEK SOLIS :1995 Visit Date:01/08/2024 Medications: Please continue your medications until treatment is completed or stopped by your provider. You may resume your daily prescription medications. Discuss any questions related to medications with your provider. What How Much When Instructions Next Dose New Acetaminophen (acetaminophen 325 mg oral tablet) 2 tab(s) Oral Every 4 hours as needed for Pain , Mild Pickup at [facility]/pharmacy #[id number] 10pm New Ibuprofen (ibuprofen 600 mg oral tablet) 1 tab(s) Oral 4 times a day as needed for for pain [id number] New Oxycodone (oxyCODONE 5 mg oral tablet) 1 tab(s) Oral Every 6 hours as needed for as needed for pain [facility] pain New Senna (Senna 8.6 mg oral tablet) 2 tab(s) Oral Daily at Bedtime Pickup at [facility]/pharmacy #[id number] 01/08/2024 Unchanged Clonazepam (clonazePAM 0.5 mg oral tablet) 0.5 Milligram Oral Twice a day Unchanged DiphenhydrAMINE (Benadryl 25 mg oral tablet) 1 tab(s) Oral Daily at Bedtime 01/09/2024 Unchanged Fexofenadine (Gabrielle Allergy 60 mg oral tablet) 1 tab(s) Oral Daily at Bedtime Unchanged Fluticasone Nasal (Flonase 50 mcg/ inh nasal spray) 1spray Inhalation Daily Unchanged Ondansetron (ondansetron 4 mg oral tablet, disintegrating) 1 tab(s) Oral Every 8 hours as needed for as needed for nausea/vomiting Unchanged Sertraline (sertraline 50 mg oral tablet) 50 Milligram Oral Daily Duration: 30 Days Take 50mg (1 tablet) by mouth for 3 weeks (21 days) then take 100mg (2 tablets) by mouth. ?? Pharmacy Information [facility] #[id number]: [address] [place], [place] [id number] [phone] Allergies (NKA means No Known Allergies) Ciloxan 0.3% ophthalmic solution??(reaction) Dilaudid??(GI distres) Latex??(Hives) Other Food Allergy??(Oranges, chocolate, tomatoes, Acute vomiting, Skin rash) ciprofloxacin??(Hives) sulfADIAZINE??(Hives) Education Materials Below is the list of Educational Leaflet Providered with your Discharge Instructions. WebMD Ignite Patient Education - Surgery Medical Daystay Surgical Overnight Discharge Instructions?? Web[employer] Ignite Patient Education - Scopolamine Transdermal System?? Valuables and Belongings I fully understand and agree that [facility] accepts no responsibility for all my personal [...] patient Date for Pt to Sign Valuables/Belongings: 01/08/24 11:12:00 ?? Valuables & Belongings ?? Clothes Electronic devices Jewelry Monetary Items Personal devices Miscellaneous Medications (Valuables) Valuables at Bedside Pants, Shirt, Shoes, Undergarments Cell phone ? Glasses ? Valuables Sent Home ? Valuables Sent to Security ? Other Discharge Information ? Pulmonary Rehab Status?? Pulmonary Rehab Discharge Status?? Respiratory Rate: 17 br/min ? Common Emergency Awareness Tips IS [...] are strongly encouraged to quit. Please call [facility] Link at [phone] or [phone] ([phone]) or log in to [email or web address] for referrals to smoking cessation programs. ?? The National Suicide Prevention Hotline is available 11/05 if you or someone you know needs to find a reason to keep living. By calling 6-112-285-Besstech (0376) you'll be connected to a skilled, trained counselor at a crisis center in your area. SURGERY DISCHARGE INSTRUCTIONS SIGNATURE PAGE JACEK SOLIS Location:[facility] Registration Date and Time:01/08/2024 10:25 EDT Primary Care Physician: Jessi Gomez DO, Attending Physician: Shannan Wheeler DO, I JACEK SOLIS, have received the above patient education materials/instructions and have verbalized understanding. If ambulance or transport services are being used I further acknowledge being given a choice of service. ?? If you need to contact me, please call me at this number: . Patient/Last Code Striper Name: Patient/Last Code Striper Signature: Relationship to Patient: Witness Name/Signature: Date: * Elizabeth Payne RN: PERFORM Event Display: Patient Education Leaflets Authored Date: [id number] Surgery Medical Daystay Surgical Overnight Discharge Instructions ?? 295 Medical Daystay/Surgical Overnight Discharge Instructions ? Since your coordination and judgment may be altered by medication and/or anesthesia, a responsible adult must drive you home from the hospital. ? If you have received medication for pain or sedation while under our care, you should not drive, operate machinery, drink alcohol, or sign any legal documents for 24 hours.?? You should have someone with you at home tonight. ? Remain at home the day of discharge.?? You may be up and about unless otherwise instructed by your physician. ? You may resume your daily prescription medication schedule.?? Any depressant medication should be avoided for 24 hours unless otherwise instructed by your surgeon or anesthesiologist. ? Call your physician for a follow-up appointment.? If you experience unusual or severe pain not relied by your pain medication, excessive bleedingor drainage, persistent nausea and vomiting, excessive swelling or redness, foul odor from incisionsite or fever over 100.6F, you need to call your physician. ? A follow-up phone call by a nurse will be made the day after your procedure.?? If you have stayed with us over night, you will not be receiving a follow-up phone call. ? Nausea and vomiting are a common side effect of prescription pain medication.?? We recommend that pills are not taken on an empty stomach.?? While taking any prescription pain medication you should not drive or drink alcohol. ? * Elizabeth Payne RN: PERFORM Event Display: Patient Education Leaflets Authored Date: [id number] Scopolamine Transdermal System ?? [id number] Scopolamine Transdermal System Brands: Transderm Scop Uses For nausea or vomiting. ?? Instructions DO NOT take this medicine by mouth. Place the patch behind the ear. Keep the medicine at room temperature. Avoid heat and direct light. This patch should not be cut. Wash your hands before and after handling this medicine. Remove old patch before applying new one. Change the location of the new patch. Remove the plastic liner that protects the sticky side of the patch before applying to the skin. Be sure the area of skin is clean and dry before putting on a new patch. Do not use soap, oils, or alcohol on the area of the skin before applying the patch. Use only waterand gently pat dry. Do not rub the skin. Apply the patch to a clean, dry, hairless area. Avoid skin that is red, scraped, or damaged. Do not shave the hair. It irritates the skin. If needed, use scissors to cut the hair close to the skin. Press the patch firmly for a few seconds to make sure it stays in place. If the patch does not stick, speak with your doctor or pharmacist. Do not cover the patch with bandage or tape unless instructed by your doctor or pharmacist. After removing the patch, fold it together and discard it out of reach of children and pets. Do not dispose of a used patch by flushing it into the toilet. Avoid getting the medicine in the eyes, nose, or mouth. Wash your hands after touching patch. If the patch falls off or you forgot to use the patch on time, apply a new patch immediately to a different location. Replace this new patch at your next usual dosing time. Tell your doctor and pharmacist about all your medicines. Include prescription and [id number], vitamins, and herbal medicines. To relieve dry mouth, chew gum, suck on hard candy/ice chips, drink extra water, or use a saliva substitute. ?? Cautions Tell your doctor and pharmacist if you ever had an allergic reaction to a medicine. Do not use the medication any more than instructed. Your ability to stay alert or to react quickly may be impaired by this medicine. Do not drive or operate machinery until you know how this medicine will affect you. Tell the doctor or pharmacist if you are , planning to be , or . Do not start or stop any other medicines without first speaking to your doctor or pharmacist. Do not share this medicine with anyone who has not been prescribed this medicine. Some patients have serious side effects from this medicine. Ask your pharmacist to show you the information from the Food and Drug Administration (FDA) and discuss it with you. ?? Side Effects The following is a list of some common side effects from this medicine. Please speak with your doctor about what you should do if you experience these or other side effects. ??? blurry vision ??? dizziness or drowsiness ??? dilation of the pupils ??? red, burning, or itchyskin ??? skin irritation where medicine is applied ??? slurred speech Call your doctor or get medical help right away if you notice any of these more serious side effects: ??? agitated feeling or trouble sleeping ??? confusion ??? hallucinations (unusual thoughts, seeingor hearing things that are not real) ??? fast or irregular heart beats ??? mood changes ??? seizures ??? difficulty or discomfort urinating ??? seeing halos or colors around lights A few people may have an allergic reaction to this medicine. Symptoms can include difficulty breathing, skin rash, itching, swelling, or severe dizziness. If you notice any of these symptoms, seek medical help quickly. ?? Extra Please speak with your doctor, nurse, or pharmacist if you have any questions about this medicine. ?? [email or web address] IMPORTANT NOTE: This document tells you briefly how to take your medicine, but it does not tell youall there is to know about it. Your doctor or pharmacist may give you other documents about your medicine. Please talk to them if you have any questions. Always follow their advice. There is a more complete description of this medicine available in Lebanese. Scan this code on your smartphone or tablet or use the web address below. You can also ask your pharmacist for a printout. If you have any questions, please ask your pharmacist. The display and use of this drug information is subject to Terms of Use. Copyright(c) 2022 [employer]. ?? The [employer]. All rights reserved. This information is not intended as a substitute for professional medical care. Always follow your healthcare professional's instructions. ?? Patient Care team information Care Team Personnel Name: Alanis Oneal MA Position: [facility] Member Role: Lifetime Consulting Physician Name: Jessi Gomez DO Position: [facility] Physician (General Medicine) Member Role: PCP Address: Address: [address] [place] [address]- Name: Darby Trevizo NP Position: [facility] PCO Associate Professional Member Role: Primary Care Nurse Address: Address: [address] [place] [address]- Care Team Related Persons Name: RADHA DOVE Name: DEXTER CELESTIN Address: home [address] [place] [address] Name: BALA MAYER Address: home [address] [place] [address] Name: LARISA VILLA Address: [employer] Address: home [address] [place] [address] [place] Name: LAXMI VILLA Address: [employer] Address: home [address] [place] [address] [place] Name: SANTA VILLA Address: home [address] [place] [address]
--- OUTSIDE RECORDS SUMMARY | 2024-05-31 10:48 | XMS_ITS | Continuity of Care Document ---
Author Organization [facility] Address [address] [place] [address]- Care Team Providers Care Video Poker Floorman Name Role Phone Paige SAMANIEGO, Edwin Primary Care Physician [phone] [id number] 04/29/21 - 06/12/[address] [address]- Attending Physician: Not on Staff, Attending MD Allergies, Adverse Reactions, Alerts Substance Reaction Severity Status ciprofloxacin Hives Active sulfADIAZINE Hives Active Other Food Allergy 1 Acute vomiting Skin rash Active Latex Hives Active Ciloxan 0.3% ophthalmic [...] first tri scree n, normal amnio/microarray at [facility](Confirmed) 2, 3 Active Abnormal chromosomal and gen [...] 1Patient states last PAP at [facility] about three years ago was ASCUS 2Son [...] hydroureter; normal appearing urinary bladder; connected with [facility] 8Reports does not have an inhaler. 9Smokes [...]
--- OUTSIDE RECORDS SUMMARY | 2024-05-31 10:48 | XMS_ITS | Continuity of Care Document ---
Author Organization [facility] Address [address] [place] [address]- Care Team Providers Care Data Analytics Analyst Name Role Phone Paige SAMANIEGO, Edwin Primary Care Physician [phone] [facility] Date(s): 06/25/21 - 08/07/[address] [address] Attending Physician: Not on Staff, Attending [...] first tri scree n, normal amnio/microarray at [facility](Confirmed) 2, 3 Active Abnormal chromosomal and [...] 14 Active 1Patient states last PAP at [facility] about three years ago [...] hydroureter; normal appearing urinary bladder; connected with [facility] 8Reports does not have an inhaler. [...]
--- OUTSIDE RECORDS SUMMARY | 2024-05-31 10:48 | XMS_ITS | Continuity of Care Document ---
Author Organization [facility] Address [address] [place] [address]- Care Team Providers Care Biomed Tech Name Role Phone Paige SAMANIEGO, Edwin Primary Care Physician [phone] Encounter [facility] Date(s): 04/29/21 - 06/26/[address] [address] Attending Physician: Not on Staff, Attending [...] first tri scree n, normal amnio/microarray at [facility](Confirmed) 2, 3 Active Abnormal chromosomal and [...] 14 Active 1Patient states last PAP at [facility] about three years ago was ASCUS [...] hydroureter; normal appearing urinary bladder; connected with [facility] 8Reports does not have an inhaler. 9Smokes [...]
--- OUTSIDE RECORDS SUMMARY | 2024-05-31 10:48 | XMS_ITS | Continuity of Care Document ---
Author Organization [facility] Address [address] [place] [address]- Care Team Providers Care Office Machine Service Supervisor Name Role Phone Not on Staff, PCP Primary Care Physician Unavail able Encounter [facility] Date(s): 08/07/22 - 09/18/22 [facility] [address] Attending Physician: Not on Staff, Attending [...] EDT, Tablet Start Date: 04/08/19 Status: Ordered oxyCODONE 5 mg oral capsule [...] Abnormal first tri screen, normal amnio/microarray at [facility] 2, 3 Confirmed Active Abnormal [...] Confirmed Active 1Patient states last PAP at [facility] about three years ago was [...] hydroureter; normal appearing urinary bladder; connected with [facility] 8Reports does not have [...] Type Response Tobacco Other: I smoke erum giordanona . Sex Patient Care team information Care Team Personnel Name: Alanis Oneal MA Position: [facility] PCO RN Member Role: Lifetime Consulting Physician Name: Darby Trevizo RN Position: [facility] RN Member Role: Primary Care Nurse Name: Not on Staff, PCP Position: [facility] Physician (General Medicine) Member Role: PCP Care Team Related Persons Name: RADHA DOVE Name: DEXTER CELESTIN Address: home [address] [place] [address] Name: BALA MAYER Address: [address] [place] [address] Name: LARISA VILLA Address: [employer] Address: [address] [place] [address] [place] Name: LAXMI VILLA Address: [employer] Address: [address] [place] [address] [place] Name: SANTA VILLA Address: home [address] [place] [address]
--- OUTSIDE RECORDS SUMMARY | 2024-05-31 10:48 | XMS_ITS | Continuity of Care Document ---
Author Organization [facility] Address [address] [place] [address]- Care Team Providers Care Tax Consultant Name Role Phone Jason Jessi MONIQUE Primary Care Physician Encounter [facility] Date(s): 12/28/23 - 01/27/[address] [address] Allergies, Adverse Reactions, Alerts Substance Reaction Severity [...] 01/08/24 14:51:00 EDT, Route to Pharmacy Electronically, [facility]/pharmacy #[id number], Partialfill upon patient request if the prescription [...] 01/08/24 14:51:00 EDT, Route to Pharmacy Electronically, [facility]/pharmacy #[id number], Partial fill upon patient request if the prescription is for a... Start Date: 01/08/24 Status: Ordered metoclopramide 10 mg oral tablet 1 tablet = 10 mg, By Mouth, 4 times a day, # 120 tablet, 0 Refills, Maintenance, 01/10/24 12:12:00 EDT, Tablet, [facility]/pharmacy #[id number], Partial fill upon patient request if the prescription is for a schedule II opioid drug., 157, cm, 01/10/24 10:51:00 EDT... Start Date: 01/10/24 Status: Ordered MiraLax oral powder for reconstitution = 17 Gm, By Mouth, Daily, dissolve in water or juice, # 255 Gm, 0 Refills, Maintenance, 01/10/24 12:13:00 EDT, REC Powder, [facility]/pharmacy #[id number], Partial fill upon patient request if the prescription isfor a schedule II opioid drug., 17 Gm By Mouth Davon... Start Date: 01/10/24 Status: Ordered ondansetron 4 mg oral tablet, disintegrating 1 tablet = 4 mg, By Mouth, Every 8 hours, PRN as needed for nausea/vomiting, # 12 tablet, 0 Refills, Maintenance, 01/03/24 6:11:00 EDT, DIS Tablet, [facility]/pharmacy #[id number], Partial fill upon patient request [...] 01/20/24 9:36:00 EDT, Route to Pharmacy Electronically, [facility]/pharmacy #[id number] Tablet, Partial fill upon patient request [...] Abnormal first tri screen, normal amnio/microarray at [facility] 2, 3 Confirmed Active Abnormal chromosomal and [...] Confirmed Active 1Patient states last PAP at [facility] about three years ago was [...] hydroureter; normal appearing urinary bladder; connected with [facility] 8Reports does not have an inhaler. [...] Team Personnel Name: Mavis Okeefe RN Position: [facility] RN Member Role: Primary Care Nurse Name: Alanis Oneal MA Position: [facility] DIALLO MA Member Role: Lifetime Consulting Physician Name: Fannie Hall RN Position: [facility] RN Member Role: Primary Care Nurse Name: Jessi Gomez DO Position: [facility] Physician (General Medicine) Member Role: PCP Address: Address: [address] [place] [address] [place] [address]- Name: Darby Trevizo NP Position: [facility] PCO Associate Professional Member Role: Primary Care Nurse Address: Address: [address] [facility] [place] [address]- Care Team Related Persons Name: RADHA DOVE Name: DEXTER CELESTIN Address: home [address] [place] [address] Name: BALA MAYER Address: home [address] [place] [id number] Name: LARISA VILLA Address: AMER[place] Address: [place] [address] Name: LAXMI VILLA Address: [place] Address: [place] [address] Name: S[place] Address: [place] [address]
--- OUTSIDE RECORDS SUMMARY | 2024-05-31 10:48 | XMS_ITS | Continuity of Care Document ---
Author Organization [facility] Address [address] [place] [address]- Care Team Providers Care Ground Control Approach Technician Name Role Phone Not on Staff, PCP Primary Care Physician Unavail able Encounter [facility] Date(s): 08/19/22 - 09/18/[address] [address] Attending Physician: Anali Godfrey Admitting Physician: Admtr, Ar8 Referring Physician: Admtr, [...] Abnormal first tri screen, normal amnio/microarray at [facility] 2, 3 Confirmed Active Abnormal [...] 1Patient states last PAP at [facility] about three years ago was [...] hydroureter; normal appearing urinary bladder; connected with [facility] 8Reports does not have [...] Team Personnel Name: Alanis Oneal MA Position: [facility] PCO RN Member Role: Lifetime Consulting Physician Name: Darby Trevizo RN Position: [facility] RN Member Role: Primary Care Nurse Name: Not on Staff, PCP Position: [facility] Physician (General Medicine) Member Role: PCP Care Team Related Persons Name: RADHA DOVE Name: DEXTER CELESTIN Address: home [address] [place] [address] Name: BALA MAYER Address: home [address] [place] [address] Name: LARISA VILLA Address: AMER[employer] Address: home [address] [place] [address] [place] Name: LAXMI VILLA Address: AMER[employer] Address: home [address] [place] [address] [place] Name: S[place]A VILL[place] Address: [address] [place] [address]
--- OUTSIDE RECORDS SUMMARY | 2024-05-31 10:48 | XMS_ITS | Continuity of Care Document ---
Author Organization [facility] Address [address] [place] [address]- Care Team Providers Care Zinc Etcher Name Role Phone Paige SAMANIEGO, Kenzie Simons Primary Care Physician [place] [facility] [place] [id number] Date(s): 08/28/21 - 10/03/[address] [address]- Encounter Diagnosis Encounter for immunization(Final) - Discharge Disposition: A-D/C Home Attending Physician: Yumiko Olea CNM Admitting Physician: Yumiko Olea CNM Allergies, Adverse Reactions, Alerts Substance Reaction Severity [...] Refills, Maintenance, 09/07/21 1:33:00 EST, Tablet, [id number], Partial fill upon patient request if the prescription is for a schedule II opioid drug., 158, cm, 1... Start Date: 09/07/21 Status: Ordered ondansetron 4 mg oral tablet, disintegrating 1 tablet = 4 mg, By Mouth, Every 8 hours, PRN Nausea & Vomiting, # 10 tablet, 0 Refills, Maintenance, 09/19/21 17:01:00 EST, Tablet, [facility]/pharmacy #[id number], Partial fill upon patient request if [...] 3 Refills, Maintenance, 11/07/20 12:22:00 EST, Tablet, [facility]/pharmacy #1234, Partial fill upon patient request if [...] first tri scree n, normal amnio/microarray at [facility](Confirmed) 2, 3 Active Abnormal chromosomal and [...] 14 Active 1Patient states last PAP at [facility] about three years ago was [...] hydroureter; normal appearing urinary bladder; connected with [facility] 8Reports does not have an inhaler. [...] oldest [Reference Range]: 1 Height 158 cm (09/03/21 1:43 PM) Weight 82.7 kg (09/03/21 1:43 PM) Body Mass Index [18.5-24.99] 33.13 *>HHI* (09/03/21 1:43 PM) Blood Pressure [90-138/55-84 mm Hg] 108/ 72mm Hg (09/03/21 1:43 PM) Blood pressure sites Arm, right (09/03/21 1:43 PM) Social History Social History Type Response Tobacco Other: I smoke erum temitope . Sex
--- OUTSIDE RECORDS SUMMARY | 2024-05-31 10:48 | XMS_ITS | Continuity of Care Document ---
Author Organization [facility] Address [address] [place] [address]- Care Team Providers Care Test Puller Name Role Phone Paige SAMANIEGO, Edwin Primary Care Physician Encounter [facility] Date(s): 11/16/20 - 12/16/[address] [address]- Allergies, Adverse Reactions, Alerts Substance Reaction Severity [...] Acute 01/01/21 8:29:00 EDT, 12/03/20 9:01:00 EST, [facility]/pharmacy #[id number], Partial fill upon patient request if [...] tri scree n, normal amnio/microarray at [facility](Confirmed) 2, 3 Active Anxiety, depression, complex [...] 14 Active 1[facility] to records pt. 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
--- OUTSIDE RECORDS SUMMARY | 2024-05-31 10:48 | XMS_ITS | Continuity of Care Document ---
Author Organization [facility] Address [address] [place] [address]- Care Team Providers Care Industrial Services Worker Name Role Phone Paige SAMANIEGO, Edwin Primary Care Physician [place] [facility] Date(s): 05/05/22 - 06/04/[address] [address] Attending Physician: Anali Godfrey Admitting Physician: AdmAnali gusman Referring Physician: Admtr, ArCarrillo Allergies, Adverse Reactions, Alerts Substance Reaction [...] 0 Refills, Maintenance, 09/19/21 17:01:00 EST, Tablet, [facility]/pharmacy #[id number], Partial fill upon [...] 3 Refills, Maintenance, 11/07/20 12:22:00 EST, Tablet, [facility]/pharmacy #1234, Partial fill upon patient request [...] Date: 12/03/21 Status: Ordered Problem List Condition Effective Dates Status Health Status Inform ant Abnormal Pap smear of cervix(Confirmed) 1 Active H/O Abnormal first tri scree n, normal amnio/microarray at [facility](Confirmed) 2, 3 Active Abnormal chromosomal and [...] (Confirmed) 11 Active Kidney disorder(Confirmed) 12 Active Scoliosis(Confirmed) Active Seizure disorder(Confirmed) 13, 14 Active 1Patient states last PAP at [facility] about three years ago was [...] normal appearing urinary bladder; connected with [facility] 8Reports does not have an inhaler. 9Smokes [...]
--- OUTSIDE RECORDS SUMMARY | 2024-05-31 10:48 | XMS_ITS | Continuity of Care Document ---
Author Organization [facility] ter Address [address] [place] [address]- Care Team Providers Care Sorting Grapple Operator Name Role Phone Paige SAMANIEGO, Kenzie Simons Primary Care Physician [place] [facility] Date(s): 06/27/22 - 06/27/[address] [address] Encounter Diagnosis Benzodiazepine withdrawal(Final) - 06/27/22 Discharge Disposition: A-D/C Home Attending Physician: Dacia Sun MD Admitting Physician: Dacia Sun MD Referring Physician: Not on Staff, Referring [...] Refills, Maintenance, 09/07/21 1:33:00 EST, Tablet, [facility], Partial fill upon patient request if the prescription is for a schedule II opioid drug., 158, cm, 1... Start Date: 09/07/21 Status: Ordered ondansetron 4 mg oral tablet, disintegrating 1 tablet = 4 mg, By Mouth, Every 8 hours, PRN Nausea & Vomiting, # 10 tablet, 0 Refills, Maintenance, 09/19/21 17:01:00 EST, Tablet, [facility]/pharmacy #[id number], Partial fill upon patient request [...] 3 Refills, Maintenance, 11/07/20 12:22:00 EST, Tablet, [facility]/pharmacy #1234, Partial fill upon patient request [...] 0 Refills,Maintenance, 12/03/21 11:06:00 EST, Tablet, [id number], Partial fill upon patient request if the prescription is for a schedule II opioid drug.... Start Date: 12/03/21 Status: Ordered Problem List Condition Effective Dates Status Health Status Inform ant Abnormal Pap smear of cervix(Confirmed) 1 Active H/O Abnormal first tri scree n, normal amnio/microarray at [facility](Confirmed) 2, 3 Active Abnormal chromosomal [...] disorder(Confirmed) 12 Active Obese class I(Confirmed) Active Scoliosis(Confirmed) Active Seizure disorder(Confirmed) 13, 14 Active 1Patient states last PAP at [facility] about three years ago was ASCUS [...] hydroureter; normal appearing urinary bladder; connected with [facility] 8Reports does not have an [...] 1 2 3 Oxygen Saturation [94-100 %] 94 % (06/27/22 7:00 PM) 97 % (06/27/22 5:18 PM) 98 % (06/27/22 3:40 PM) Pulse Rate [55-90 bpm] 99 bpm *H* (06/27/22 7:00 PM) 47 bpm *L* (06/27/22 5:18 PM) 45 bpm *L* (06/27/22 3:40 PM) Blood Pressure [90-138/55-84 mm Hg] 118/75mm Hg (06/27/22 7:00 PM) 115/78mm Hg (06/27/22 5:18 PM) 119/72mm Hg (06/27/22 3:40 PM) Respiratory Rate [16-30 br/min] 20 br/min (06/27/22 7:00 PM) 16 br/min (06/27/22 5:18 PM) 14 br/min *L* (06/27/22 3:40 PM) Temperature [96.8-100.4 DegF] 98.2 DegF (06/27/22 7:00 PM) 98.4 DegF (06/27/22 3:40 PM) 98.3 DegF (06/27/22 1:01 PM) Mode of Delivery (Oxygen) Room air (06/27/22 7:00 PM) Room air (06/27/22 5:18 PM) Room air (06/27/22 3:40 PM) Blood pressure sites Arm, right (06/27/22 7:00 PM) Arm, right (06/27/22 5:18 PM) Arm, right (06/27/22 3:40 PM) Temperature Route Oral (06/27/22 7:00 PM) Oral (06/27/22 3:40 PM) Oral (06/27/22 1:01 PM) Social History Social History Type Response Tobacco Other: I smoke erum temitope . Sex Care Team Personnel Name: Kenzie Gibson MD Address: [address] [place] [address] [address] [facility] [place] [address]- [place]
--- OUTSIDE RECORDS SUMMARY | 2024-05-31 10:48 | XMS_ITS | Continuity of Care Document ---
Author Organization [facility] ter Address [address] [place] [address]- Care Team Providers Care Service Sprinkler Helper Name Role Phone Jessi Gomez DO Primary Care Physician ( [phone] Encounter [facility] Date(s): 01/07/24 - 01/14/[address] [address] Attending Physician: Not on Staff, Attending MD Allergies, Adverse Reactions, Alerts Substance Reaction Severity Status ciprofloxacin Hives Active sulfADIAZINE Hives Active Dilaudid GI distres Active Other Food Allergy 1 Oranges, chocolate, tomatoes Acute vomiting Skin rash Active Latex Hives [...] 01/08/24 14:51:00 EDT, Route to Pharmacy Electronically, [facility]/pharmacy #[id number], Partialfill upon patient request if the prescription is fo... Start Date: 01/08/24 Status: Ordered clonazePAM 0.5 mg oral tablet 1 tablet = 0.5 mg, By Mouth, 2 times a day, 0 Refills, Maintenance, 04/08/19 7:40:37 EDT, Tablet Start Date: 6/21/19 Status: Ordered ibuprofen 600 mg oral tablet 600 mg, 1, tablet, By Mouth, 4 times a day, PRN, # 50 tablet, Refills 0, Tot. Refills 0, Maintenance, for pain, 01/08/24 14:51:00 EDT, Route to Pharmacy Electronically, [facility]/pharmacy #[id number], Partial fill upon patient request [...] Refills, Maintenance, 01/10/24 12:13:00 EDT, REC Powder, [facility]/pharmacy #[id number], Partial fill upon patient request [...] 01/08/24 14:51:00 EDT, Route to Pharmacy Electronically, [facility]/pharmacy #[id number], Partial fill upon patient request [...] 01/10/24 12:13:00 EDT, Route to Pharmacy Electronically, [facility]/pharmacy #[id number], Partial fill upon patient request if the prescription is f... Start Date: 01/10/24 Status: Ordered Problem List Condition Confirmation Course Effective Dates Status Health St atus Informant Abnormal Pap smear of cervix 1 Confirmed Active H/O Abnormal first tri screen, normal amnio/microarray at [facility] 2, 3 Confirmed Active Abnormal chromosomal [...] Confirmed Active 1Patient states last PAP at [facility] about three years ago was ASCUS 2Son [...] hydroureter; normal appearing urinary bladder; connected with [facility] 8Reports does [...] (General Medicine) Member Role: PCP Address: Address: [address] [place] [address]- Name: Darby Trevizo NP Position: [facility] PCO Associate Professional Member Role: Primary Care Nurse Address: Address: [address] [place] [address]- Care Team Related Persons Name: RADHA DOVE Name: DEXTER CELESTIN Address: home [address] [place], [place] Name: BALA MAYER Address: home [address] [place] [address] Name: LARISA VILLA Address: AMER[place] Address: [address] [place], [place] Name: LAXMI VILLA Address: AMER[place] Address: [address] [place] [address] [place] Name: SANTA VILLA Address: [address] [place] [address]
--- OUTSIDE RECORDS SUMMARY | 2024-05-31 10:48 | XMS_ITS | Continuity of Care Document ---
Author Organization [facility] Address [address] [place] [address]- Care Team Providers Care Soybean Specialties Cook Name Role Phone Paige SAMANIEGO, Kenzie Simons Primary Care Physician Encounter [facility] Date(s): 12/06/21 - 01/05/[address] [address]- Allergies, Adverse Reactions, Alerts Substance Reaction Severity [...] Refills, Maintenance, 09/07/21 1:33:00 EST, Tablet, [id number], Partial fill upon patient request if the [...] first tri scree n, normal amnio/microarray at [facility](Confirmed) 2, 3 Active Abnormal chromosomal and [...] 14 Active 1Patient states last PAP at [facility] about three years ago was [...] hydroureter; normal appearing urinary bladder; connected with [facility] 8Reports does not have an [...]
--- OUTSIDE RECORDS SUMMARY | 2024-05-31 10:48 | XMS_ITS | Continuity of Care Document ---
Author Organization [facility] Address [address] [place] [address]- Care Team Providers Care Balling Machine Operator Name Role Phone Paige SAMANIEGO, Edwin Primary Care Physician [place] [facility] Date(s): 01/14/21 - 02/13/21 [facility] [address] [address]- Allergies, Adverse Reactions, Alerts Substance Reaction Severity [...] 3 Refills, Maintenance, 11/07/20 12:22:00 EST, Tablet, [facility]/pharmacy #1234, Partial fill upon patient request [...] first tri scree n, normal amnio/microarray at [facility](Confirmed) 2, 3 Active Anxiety, depression, complex [...] 14 Active 1Patient states last PAP at [facility] about three years ago was ASCUS [...] normal appearing urinary bladder; connected with [facility] 8Reports does not have an inhaler. 9Smokes [...]
--- OUTSIDE RECORDS SUMMARY | 2024-05-31 10:48 | XMS_ITS | Continuity of Care Document ---
Author Organization [facility] ter Address [address] [place] [address]- Care Team Providers Care Lightning Rod Erector Name Role Phone Edwin Gibson MD Primary Care Physician Encounter [facility] Date(s): 02/11/21 - 02/11/[address] [address]- Encounter Diagnosis (Final) - 02/11/21 Abdominal pain(Final) - 02/11/21 Discharge Disposition: A-D/C Home Attending Physician: Julienne Lambert MD Admitting Physician: Julienne Lambert MD Referring Physician: Not on Staff, Referring MD Allergies, Adverse Reactions, Alerts Substance Reaction Severity Status ciprofloxacin Hives Active sulfADIAZINE Hives Active Latex Hives Active Other Food Allergy 1 Acute [...] 3 Refills, Maintenance, 11/07/20 12:22:00 EST, Tablet, [facility]/pharmacy #[id number], Partial fill upon patient request if the [...] first tri scree n, normal amnio/microarray at [facility](Confirmed) 2, 3 Active Anxiety, depression, [...] 14 Active 1Patient states last PAP at [facility] about three years ago was [...] hydroureter; normal appearing urinary bladder; connected with [facility] 8Reports does not have [...] Range]: 1 2 3 Height 158 cm (02/11/21 6:13 PM) 158 cm (02/11/21 5:30 PM) 158 cm (02/11/21 1:30 PM) Weight 125 kg (02/11/21 6:13 PM) 125 kg (02/11/21 5:30 PM) 125 kg (02/11/21 1:30 PM) Oxygen Saturation [94-100 %] 100 % (02/11/21:13 PM) 100 % (02/11/21 5:30 PM) 99 % (02/11/21 1:30 PM) Pulse Rate [55-90 bpm] 81 bpm (02/11/21:13 PM) 71 bpm (02/11/21 5:30 PM) 93 bpm *H* (02/11/21 1:30 PM) Body Mass Index [18.5-24.99] 50.07 *>HHI* (02/11/21 6:13 PM) Blood Pressure [90-138/55-84 mm Hg] 137/67mm Hg (02/11/21 6:13 PM) 141/79mm Hg *H* (02/11/21 5:30 PM) 127/73mm Hg (02/11/21 1:30 PM) Respiratory Rate [16-30 br/min] 18 br/min (02/11/21 6:13 PM) 20 br/min (02/11/21 5:30 PM) 18 br/min (02/11/21 1:30 PM) Temperature [96.8-100.4 DegF] 98.3 DegF (02/11/21 6:13 PM) 98.5 DegF (02/11/21 5:30 PM) 97.8 DegF (02/11/21 1:30 PM) Mode of Delivery (Oxygen) Room air (02/11/21 6:13 PM) Room air (02/11/21 5:30 PM) Room air (02/11/21 1:30 PM) Blood pressure sites Arm, right (02/11/21 6:13 PM) Arm, right (02/11/21 5:30 PM) Arm, right (02/11/21 1:30 PM) Temperature Route Oral (02/11/21 6:13 PM) Oral (02/11/21 5:30 PM) Oral (02/11/21 1:30 PM) Dry Weight 125 kg (02/11/21 6:13 PM) 125 kg (02/11/21 5:30 PM) 125 kg (02/11/21 1:30 PM) Social History Social History Type Response Smoking Status Former smoker, quit more than 30 days ago; Other: Quit about two and a half years ago; entered on: 11/26/20 Sex
--- OUTSIDE RECORDS SUMMARY | 2024-05-31 10:48 | XMS_ITS | Continuity of Care Document ---
Author Organization [facility] Address [address] [place] [address]- Care Team Providers Care Parole Hearing Officer Name Role Phone Paige SAMANIEGO, Edwin Primary Care Physician [place] [facility] [place] 11/07/20 - 12/07/[address] [address]- Allergies, Adverse Reactions, Alerts Substance Reaction Severity [...] Acute 01/01/21 8:29:00 EDT, 12/03/20 9:01:00 EST, [facility]/pharmacy #[id number], Partial fill upon patient request if [...] first tri scree n, normal amnio/microarray at [facility](Confirmed) 2, 3 Active Anxiety, depression, complex [...] 14 Active 1Patient states last PAP at [facility] about three years ago was ASCUS 2Son [...] hydroureter; normal appearing urinary bladder; connected with [facility] 8Reports does not have an inhaler. [...]
--- OUTSIDE RECORDS SUMMARY | 2024-05-31 10:48 | XMS_ITS | Continuity of Care Document ---
Author Organization [facility] Address [address] [place] [address]- Care Team Providers Care Branch Library Clerk Name Role Phone Paige SAMANIEGO, Edwin Primary Care Physician [place] [facility] [place]11[place] - 03/13/21 [facility] [address] [address]- Allergies, Adverse Reactions, Alerts Substance Reaction Severity [...] Refills, Maintenance, 11/07/20 12:22:00 EST, Tablet, [facility]/pharmacy #[id number], Partial fill upon patient [...] first tri scree n, normal amnio/microarray at [facility](Confirmed) 2, 3 Active Anxiety, depression, [...] 1Patient states last PAP at [facility] about three years ago was ASCUS [...] hydroureter; normal appearing urinary bladder; connected with [facility] 8Reports does not have an inhaler. 9Smokes [...]
--- OUTSIDE RECORDS SUMMARY | 2024-05-31 10:48 | XMS_ITS | Continuity of Care Document ---
Author Organization [facility] Address [address] [place] [address]- Care Team Providers Care Erp Analyst Name Role Phone Paige SAMANIEGO, Edwin Primary Care Physician [place] [facility] Date(s): 04/29/21 - 07/17/[address] [address] Attending Physician: Not on [...] first tri scree n, normal amnio/microarray at [facility](Confirmed) 2, 3 Active Abnormal chromosomal and gen [...] 14 Active 1Patient states last PAP at [facility] about three years ago was ASCUS [...] hydroureter; normal appearing urinary bladder; connected with [facility] 8Reports does not have an inhaler. [...]
--- OUTSIDE RECORDS SUMMARY | 2024-05-31 10:48 | XMS_ITS | Continuity of Care Document ---
Author Organization [facility] Address [address] [place] [address]- Care Team Providers Care Vocational Technical Education Teacher Name Role Phone Paige SAMANIEGO, Edwin Primary Care Physician [phone] Encounter [facility] Date(s): 05/01/22 - 05/31/[address] [address] Allergies, Adverse Reactions, Alerts Substance [...] 3 Refills, Maintenance, 11/07/20 12:22:00 EST, Tablet, [facility]/pharmacy #[id number], Partial fill upon patient request if [...] first tri scree n, normal amnio/microarray at [facility](Confirmed) 2, 3 Active Abnormal chromosomal and [...] 14 Active 1Patient states last PAP at [facility] about three years ago was [...] hydroureter; normal appearing urinary bladder; connected with [facility] 8Reports does not have an [...]
--- OUTSIDE RECORDS SUMMARY | 2024-05-31 10:48 | XMS_ITS | Continuity of Care Document ---
[facility] Address [address] [place] [address]- Care Team Providers Care Dyeing Machine Back Tender Name Role Phone Paige SAMANIEGO, Kenzie Simons Primary Care Physician Encounter [facility] Date(s): 03/19/22 - 03/19/[address] [address]- Discharge Disposition: A-D/C Walkout Attending Physician: Scott Culp MD Admitting Physician: Scott Culp MD Referring Physician: Not on Staff, Referring [...] 0 Refills, Maintenance, 09/19/21 17:01:00 EST, Tablet, [facility]/pharmacy #[id number], Partial fill upon patient request if [...] 3 Refills, Maintenance, 11/07/20 12:22:00 EST, Tablet, [facility]/pharmacy #[id number], Partial fill upon patient request if [...] 0 Refills,Maintenance, 12/03/21 11:06:00 EST, Tablet, [facility]acy [id number], Partial fill upon patient request if the prescription is for a schedule II opioid drug.... Start Date: 12/03/21 Status: Ordered Problem List Condition Effective Dates Status Health Status Inform ant Abnormal Pap smear of cervix(Confirmed) 1 Active H/O Abnormal first tri scree n, normal amnio/microarray at [facility](Confirmed) 2, 3 Active Abnormal chromosomal and [...] 14 Active 1Patient states last PAP at [facility] about three years ago was ASCUS [...] hydroureter; normal appearing urinary bladder; connected with [facility] 8Reports does not [...]
--- OUTSIDE RECORDS SUMMARY | 2024-05-31 10:48 | XMS_ITS | Continuity of Care Document ---
Author Organization [facility] Address [address] [place] [address]- Care Team Providers Care Research Group Director Name Role Phone Jason Jessi MONIQUE Primary Care Physician [place] [facility] Date(s): 12/17/23 - 01/16/[address] [address] Allergies, Adverse Reactions, Alerts Substance Reaction [...] 01/08/24 14:51:00 EDT, Route to Pharmacy Electronically, [facility]/pharmacy #[id number], Partialfill upon patient request if the prescription [...] 01/08/24 14:51:00 EDT, Route to Pharmacy Electronically, [facility]/pharmacy #[id number], Partial fill upon patient request [...] 01/08/24 14:51:00 EDT, Route to Pharmacy Electronically, [facility]/pharmacy #[id number], Partial fill upon patient request [...] 01/10/24 12:13:00 EDT, Route to Pharmacy Electronically, [facility]/pharmacy #[id number], Partial fill upon patient request if the prescription is f... Start Date: 01/10/24 Status: Ordered Problem List Condition Confirmation Course Effective Dates Status Health St [facility] Informant Abnormal Pap smear of cervix 1 Confirmed Active H/O Abnormal first tri screen, normal amnio/microarray at [facility] 2, 3 Confirmed Active Abnormal chromosomal and [...] Confirmed Active 1Patient states last PAP at [facility] about three years ago was ASCUS [...] hydroureter; normal appearing urinary bladder; connected with [facility] 8Reports does not have an inhaler. [...] Team Personnel Name: Mavis Okeefe RN Position: [facility] RN Member Role: Primary Care Nurse Name: Alanis Oneal MA Position: [facility] DIALLO PEARSON Member Role: Lifetime Consulting Physician Name: Fannie Hall RN Position: [facility] RN Member Role: Primary Care Nurse Name: Jessi Gomez DO Position: [facility] Physician (General Medicine) Member Role: PCP Address: Address: [address] [place] [address]- Name: Darby Trevizo NP Position: [facility] PCO Associate Professional Member Role: Primary Care Nurse Address: Address: [address] [place] [address]- Care Team Related Persons Name: RADHA DOVE Name: DEXTER CELESTIN Address: home [address] [place], [place] Name: BALA MAYER Address: home [address] [place], [place] Name: LARISA VILLA Address: AMER[employer] Address: home [address] [place], [place] Name: LAXMI VILLA Address: AMERCN Address: home [address] [place], [place] Name: S[place]A VILLA Address: home [address] [place] [address]
--- OUTSIDE RECORDS SUMMARY | 2024-05-31 10:48 | XMS_ITS | Continuity of Care Document ---
Author Organization [facility] Address [address] [place] [address]- Care Team Providers Care Chemical Engineering Professor Name Role Phone Paige SAMANIEGO, Kenzie Simons Primary Care Physician Encounter [facility] Date(s): 08/06/23 - 09/05/[address] [address]- Allergies, Adverse Reactions, Alerts Substance Reaction Severity [...] Abnormal first tri screen, normal amnio/microarray at [facility] 2, 3 Confirmed Active Abnormal [...] Active 1Patient states last PAP at [facility] about three years ago was ASCUS 2Son [...] hydroureter; normal appearing urinary bladder; connected with [facility] 8Reports does not have an [...] Care team information Care Team Personnel Name: Paige SAMANIEGO, Kenzie Simons Position: [facility] Physician - Primary Care Member Role: PCP Address: Address: [address] [place] [address] [place] [address]- Name: Alanis Oneal MA Position: [facility] AMB [place] Member Role: Lifetime Consulting Physician Name: Darby Trevizo NP Position: [facility] PCO Associate Professional Member Role: Primary Care Nurse Address: Address: [address] [place] [address] [place] [address]- Care Team Related Persons Name: RADHA DOVE Name: DEXTER CELESTIN Address: [address] [place] [address] Name: BALA MAYER Address: [address] [place], [place] Name: LARISA VILLA Address: AMERCN Address: [address] [place] [address] [place] Name: LAXMI VILLA Address: AMERCN Address: [address] [place] [address] [place] Name: [place] Address: home [address] [place] [address]
--- OUTSIDE RECORDS SUMMARY | 2024-05-31 10:49 | XMS_ITS | Continuity of Care Document ---
Author Organization [facility] Address [address], [address] [place] [address]- Care Team Providers Care Solderer Furnace Name Role Phone Paige SAMANIEGO, Edwin Primary Care Physician [phone] Encounter [facility] Date(s): 06/04/21 - 07/04/21 [facility] [address], [address] [place], [place] [address] Allergies, Adverse Reactions, Alerts Substance [...] hydroureter; normal appearing urinary bladder; connected with [facility] 8Reports does not have an inhaler. [...]
--- OUTSIDE RECORDS SUMMARY | 2024-05-31 10:49 | XMS_ITS | Continuity of Care Document ---
Author Organization [facility] Address [address] [place] [address]- Care Team Providers Care Scrap Kettle Tender Name Role Phone Edwin Gibson MD Primary Care Physician [phone] Encounter [facility] R [id number] Date(s): 10/20/23 - 11/19/23 [facility] [address] [place] [address]- [place] Allergies, Adverse Reactions, Alerts Substance Reaction Severity Status ciprofloxacin Hives Active Latex Hives Active Ciloxan 0.3% ophthalmic solution reaction Active Other Food Allergy 1 Acute vomiting Skin rash Active sulfADIAZINE Hives Active Dilaudid Active 1red sauce, all citrus, chocolate Immunizations [...] Abnormal first tri screen, normal amnio/microarray at [facility] 2, 3 Confirmed Active Abnormal chromosomal [...] Confirmed Active 1Patient states last PAP at [facility] about three years ago was [...] hydroureter; normal appearing urinary bladder; connected with [facility] 8Reports does not [...] Team Personnel Name: Edwin Gibson MD Position: [facility] Outreach Member Role: PCP Address: Address: [address] [place] [address]- Name: Alanis Oneal MA Position: [facility] MA Member Role: Lifetime Consulting Physician Name: Darby Trevizo NP Position: [facility] PCO Associate Professional Member Role: Primary Care Nurse Address: Address: [address] [place] [address]- Care Team Related Persons Name: RADHA DOVE Name: DEXTER CELESTIN Address: [address] [place] [address] Name: BALA MAYER Address: [address] [place] [address] Name: LARISA VILLA Address: AMERCN Address: [address] [place] [address] [place] Name: LAXMI VILLA Address: AMERCN Address: [address] [place] [address] [place] Name: SANTA VILLA Address: [address] [place] [address]
--- OUTSIDE RECORDS SUMMARY | 2024-05-31 10:49 | XMS_ITS | Continuity of Care Document ---
Author Organization [facility] Address [address] [place] [address]- Care Team Providers Care Superintendent Schools Name Role Phone Paige SAMANIEGO, Edwin Primary Care Physician [phone] Encounter [facility] Date(s): 11/30/20 - 01/31/21 [facility] [address] [place] [address] Attending Physician: Ofelia SAMANIEGO, Doug Ruff Admitting Physician: Doug Gilbert MD Referring Physician: Pasha SAMANIEGO, Lucrecia Hannon Allergies, Adverse Reactions, Alerts Substance Reaction Severity [...] first tri scree n, normal amnio/microarray at [facility](Confirmed) 2, 3 Active Anxiety, depression, complex social [...] 14 Active 1Patient states last PAP at [facility] about three years ago was [...] hydroureter; normal appearing urinary bladder; connected with [facility] 8Reports does not have an [...]
--- OUTSIDE RECORDS SUMMARY | 2024-05-31 10:49 | XMS_ITS | Continuity of Care Document ---
Author Organization [facility] Address [address] [place] [address]- Care Team Providers Care Production Operations Engineer Name Role Phone JasonJessi sahu DO Primary Care Physician Encounter [facility] Date(s): 01/07/24 - 02/06/24 [facility] [address] [place] [address]- Attending Physician: Anali Godfrey Admitting Physician: AdmtrAnali Referring Physician: AdmtrAnali Allergies, Adverse Reactions, Alerts [...] 01/08/24 14:51:00 EDT, Route to Pharmacy Electronically, [facility]/pharmacy #[id number], Partialfill upon patient request if the prescription [...] 01/08/24 14:51:00 EDT, Route to Pharmacy Electronically, [facility]/pharmacy #[id number], Partial fill upon patient [...] Refills, Maintenance, 01/10/24 12:13:00 EDT, REC Powder, [facility]/pharmacy #[id number], Partial fill upon patient [...] 01/20/24 9:36:00 EDT, Route to Pharmacy Electronically, [facility]/pharmacy #[id number] Tablet, Partial fill upon patient request [...] 01/10/24 12:13:00 EDT, Route to Pharmacy Electronically, [facility]/pharmacy #[id number], Partial fill upon patient request if the prescription is f... Start Date: 01/10/24 Status: Ordered Problem List Condition Confirmation Course Effective Dates Status Health [facility] Informant Abnormal Pap smear of cervix 1 Confirmed Active H/O Abnormal first tri screen, normal amnio/microarray at [facility] 2, 3 Confirmed Active Abnormal chromosomal and [...] Confirmed Active 1Patient [facility] [...] hydroureter; normal appearing urinary bladder; connected with [facility] 8Reports does not [...] Team Personnel Name: Mavis Okeefe RN Position: [facility] RN Member Role: Primary Care Nurse Name: Alanis Oneal MA Position: [facility] DIALLO [place] Member Role: Lifetime Consulting Physician Name: Fannie Hall RN Position: [facility] RN Member Role: Primary Care Nurse Name: Jessi Gomez DO Position: [facility] Physician (General Medicine) Member Role: PCP Address: Address: [address] [place] [address] [place] [address]- Name: Darby Trevizo NP Position: [facility] PCO Associate Professional Member Role: Primary Care Nurse Address: Address: [address] [place] [address] [place] [address]- Care Team Related Persons Name: RADHA DOVE Name: DEXTER CELESTIN Address: [address] [place] [address] Name: BALA MAYER Address: [address] [place] [address] Name: LARISA VILLA Address: AMERCN Address: [address] [address] [place] Name: LAXMI VILLA [facility] Address: [address] [address] [place] Name: S[place]A VILLA Address: [address] [address]
--- OUTSIDE RECORDS SUMMARY | 2024-05-31 10:49 | XMS_ITS | Continuity of Care Document ---
Author Organization [facility] Address [address] [place] [address], 4[address] [place] [address]- Care Team Providers Care Grill Associate Name Role Phone Jason Jessi MONIQUE Primary Care Physician [id number] Date(s): 01/07/24 - 02/06/[address] [facility] [employer]britney [employer] [facility] [address] [facility] 4th Floor [place], [place] [address] Allergies, Adverse Reactions, Alerts Substance Reaction [...] 01/08/24 14:51:00 EDT, Route to Pharmacy Electronically, [facility]/pharmacy #[id number], Partialfill upon patient request if the prescription [...] 01/08/24 14:51:00 EDT, Route to Pharmacy Electronically, [facility]/pharmacy #[id number], Partial fill upon patient request if the prescription is for a... Start Date: 01/08/24 Status: Ordered metoclopramide 10 mg oral tablet 1 tablet = 10 mg, By Mouth, 4 times a day, # 120 tablet, 0 Refills, Maintenance, 01/10/24 12:12:00 EDT, Tablet, [facility]/pharmacy #[id number], Partial fill upon patient request if the prescription is for a schedule II opioid drug., 157, cm, 01/10/24 10:51:00 EDT... Start Date: 01/10/24 Status: Ordered MiraLax oral powder for reconstitution = 17 Gm, By Mouth, Daily, dissolve in water or juice, # 255 Gm, 0 Refills, Maintenance, 01/10/24 12:13:00 EDT, REC Powder, [facility]/pharmacy #[id number], Partial fill upon patient request if the prescription isfor a schedule II opioid drug., 17 Gm By Mouth Davon... Start Date: 01/10/24 Status: Ordered ondansetron 4 mg oral tablet, disintegrating 1 tablet = 4 mg, By Mouth, Every 8 hours, PRN as needed for nausea/vomiting, # 12 tablet, 0 Refills, Maintenance, 01/03/24 6:11:00 EDT, DIS Tablet, [facility]/pharmacy #[id number], Partial fill upon patient request if [...] Abnormal first tri screen, normal amnio/microarray at [facility] 2, 3 Confirmed Active Abnormal chromosomal [...] Confirmed Active 1Patient states last PAP at [facility] about three years ago was ASCUS [...] hydroureter; normal appearing urinary bladder; connected with [facility] 8Reports does not have an inhaler. 9Smokes [...] Team Personnel Name: Mavis Okeefe RN Position: [facility] RN Member Role: Primary Care Nurse Name: Alanis Oneal MA Position: [facility] DIALLO [place] Member Role: Lifetime Consulting Physician Name: Fannie Hall RN Position: [facility] RN Member Role: Primary Care Nurse Name: Jessi Gomez DO Position: [facility] Physician (General Medicine) Member Role: PCP Address: Address: [address] [place] [address] [place] [address]- Name: Darby Trevizo NP Position: [facility] PCO Associate Professional Member Role: Primary Care Nurse Address: Address: [address] [facility] Adult - [place] - Care Team Related Persons Name: RADHA DOVE Name: DEXTER CELESTIN Address: [address] [place] [address] Name: BALA MAYER Address: home [address] [place] [id number] Name: LARISA VILLA Address: AMERCN Address: [place] [address] Name: LAXMI VILLA Address: AMERCN Address: [address] Name: S[place] Address: [place] [address]
--- OUTSIDE RECORDS SUMMARY | 2024-05-31 10:49 | XMS_ITS | Continuity of Care Document ---
Author Organization [facility] Address [address] [place] [address]- Care Team Providers Care Belt Measurer Name Role Phone JasonJessi sahu DO Primary Care Physician ( [phone] Encounter [facility] Date(s): 12/02/23 - 01/01/[address] [address] Attending Physician: Anali Godfrey Admitting Physician: AdmtrAnali Referring Physician: Admtr, Ar8 Allergies, Adverse Reactions, [...] Abnormal first tri screen, normal amnio/microarray at [facility] 2, 3 Confirmed Active Abnormal chromosomal [...] Confirmed Active 1Patient states last PAP at [facility] about three years ago was ASCUS 2Son [...] hydroureter; normal appearing urinary bladder; connected with [facility] 8Reports does [...] Team Personnel Name: Alanis Oneal MA Position: [facility] MA Member Role: Lifetime Consulting Physician Name: Jessi Gomez DO Position: [facility] Physician (General Medicine) Member Role: PCP Address: Address: [address] [place] [address]- Name: Darby Trevizo NP Position: [facility] PCO Associate Professional Member Role: Primary Care Nurse Address: Address: [address] [place] [address] [place] [address]- Care Team Related Persons Name: RADHA DOVE Name: DEXTER CELESTIN Address: [address] [place] [address] Name: BALA MAYER Address: [address] [place] [address] Name: LARISA VILLA Address: AMER[employer] Address: [address] [place] [address] [place] Name: LAXMI VILLA Address: AMER[employer] Address: [address] [place], [place] Name: [place] V[place] Address: [address] [place] [address]
--- OUTSIDE RECORDS SUMMARY | 2024-05-31 10:49 | XMS_ITS | Continuity of Care Document ---
Author Organization [facility] Address [address] [place] [address]- Care Team Providers Care Warehouse Shipper Name Role Phone Not on Staff, PCP Primary Care Physician Unavail able Encounter [facility] Date(s): 09/04/22 - 09/04/[address] [address]- Encounter Diagnosis Abdominal pain(Final) - 09/04/22 Discharge Disposition: A-D/C Home Attending Physician: Rafael Jennings DO Admitting Physician: Rafael Jennings DO Referring Physician: Not on Staff, Referring [...] 3 Refills, Maintenance, 11/07/20 12:22:00 EST, Tablet, [facility]/pharmacy #[id number], Partial fill upon patient [...] Abnormal first tri screen, normal amnio/microarray at [facility] 2, 3 Confirmed Active Abnormal [...] Confirmed Active 1Patient states last PAP at [facility] about three years ago was [...] hydroureter; normal appearing urinary bladder; connected with [facility] 8Reports does not [...] Range]: 1 2 3 Height 158 cm (09/04/22 3:48 AM) 158 cm (09/04/22 1:01 AM) 158 cm (09/04/22 12:59 AM) Weight 80.4 kg (09/04/22 1:01 AM) 80.4 kg (09/04/22 12:59 AM) Oxygen Saturation [94-100 %] 100 % (09/04/22 3:48 AM) 97 % (09/04/22 12:59 AM) Pulse Rate [55-90 bpm] 90 bpm (09/04/22 3:48 AM) 100 bpm *H* (09/04/22 12:59 AM) Body Mass Index [18.5-24.99 kg/m2] 32.21 kg/m2 *>HHI* (09/04/22 12:59 AM) Blood Pressure [90-138/55-84 mm Hg] 127/80mm Hg (09/04/22 3:48 AM) 145/86mm Hg *H* (09/04/22 12:59 AM) Respiratory Rate [16-30 br/min] 17 br/min (09/04/22 3:48 AM) 18 br/min (09/04/22 12:59 AM) Temperature [96.8-100.4 DegF] 97.0 DegF (09/04/22 12:59 AM) Mode of Delivery (Oxygen) Room air (09/04/22 3:48 AM) Blood pressure sites Arm, right (09/04/22 3:48 AM) Temperature Route Temporal (09/04/22 12:59 AM) Dry Weight 80.4 kg (09/04/22 1:01 AM) 80.4 kg (09/04/22 12:59 AM) Social History Social History Type Response Tobacco Other: I smoke erum linn . Sex Note * Rafael Jennings DO: PERFORM Event Display: Patient Education Leaflets Authored Date: [id number] Psychiatric Outpatient Referral List ?? 263 Psychiatric Outpatient Referral List [facility] 24hr Emergency Crisis Line? [address], [place]? [phone] ? [phone] [facility] Central Intake? [phone] ? [phone] [facility]? [address], [place] ? [phone] ? Walk in: T-Th 9:45-12:45pm [facility]? [address], [place]? [phone] [facility]? [phone] [facility]? [address], [place]? [phone] [facility]? [address], [place]? [phone] [facility]? [address], [place]? [phone] [facility]? [address], [place]? [phone] [facility]? [address], [place]? [phone] ? Walk in: M-Th 8:00-4:00pm [facility]? [address], [place]? [phone] [facility] [place] [facility]? [address] [facility]? [phone] [facility]? [address], [place] ? [phone] [facility]? [address], [place]? [phone] [facility]? [address], [place]? [phone] [facility]? [place] &&[place]? [phone] [facility] [address], [place]? [phone] [facility]? [place] &&[place]? [phone] [facility]? [address], [place] ? [phone] [facility]? [address], [place]? [phone] [facility]? [address], [place]? [phone] ? Walk in: M-W 9:30 or 10:30am [facility]? [address], [place]?? [place]? [phone] ? [phone] Domestic Violence 24 Hr Hot Lines: ? [facility]? [phone] ? [facility]? [phone]? [facility]? [phone] ? [facility]? [phone] ?? Elder Services: ? [facility] [place] [facility]? [phone] ? [facility] [place] [facility] ? [phone] ?? Legal Advocacy Hot Line: ? [facility] ? [phone] (9:30-12:45 M-Nadya) ?? [place] Dept of Transitional Assistance: ? [place] [phone] / [place] [phone] / [facility] [phone] ?? DETOX Services [facility]? [address], [place], [place]? [phone] [facility]? [address], [place], [place]? [phone] [facility]? [address], [place], [place]? [phone] [facility] ??? [facility]? [address], [place], [place]? [phone] ? [phone] ? After 5pm:? [phone] BHN ??? [facility] [address], [place], [place]? [phone] ? [phone]? After 5pm:? [phone] [facility]? [address], [place], [place]? [phone] [facility]? [address], [place], [place]? [phone] ? [phone] [facility]? [address], [place], [place]? [phone] [facility] [place] [facility]? [address], [place], [place]? [phone] [facility]? [address], [place], [place]? [phone] [facility]? [address], [place], [place]? [phone] ? [phone] [facility] ?[address], [place], [place]? [phone] [facility]? [address], [place], [place]? [phone] ? [phone] [facility]? [address], [place], [place]? [phone] ? [phone] [facility]? [address], [place], [place]? [phone] [facility]? [address], [place], [place] ? [phone] [facility]? [address], [place], [place]? [phone] ? [phone] ? Patient Care team information Care Team Personnel Name: Alanis Oneal [place] Position: [facility] PCO RN Member Role: Lifetime Consulting Physician Name: Darby Trevizo RN Position: [facility] RN Member Role: Primary Care Nurse Name: Not on Staff, PCP Position: [facility] Physician (General Medicine) Member Role: PCP Name: Branden Thompson RN Position: [facility] ED RN W/OE and Tasks Member Role: Patient Care Provider Name: Fatou Jenkins Position: [facility] ED OA Member Role: Costumer Name: Rafael Jennings DO Position: [facility] ED Medicine MD Member Role: ED Attending Physician Address: Address: [address] [place] [address] [place] [address]- Care Team Related Persons Name: PETTY RADHA Name: CELESTINDEXTER GAFFNEY Address: home [address] [place] [address] Name: BALA MAYER Address: home [address] [place] [address] Name: LARISA VILLA Address: [place] Address: home [address] [place] [address] [place] Name: LAXMI VILLA Address: [place] Address: [address] [place] [address] [place] Name: [place] Address: [address] [place] [address]
--- OUTSIDE RECORDS SUMMARY | 2024-05-31 10:49 | XMS_ITS | Continuity of Care Document ---
Author Organization [facility] Address [address] [place] [address]- Care Team Providers Care Chief Accounting Officer Name Role Phone Edwin Gibson MD Primary Care Physician [place] [facility] - 06/05/[address] [address] Discharge Disposition: A-D/C Home Attending Physician: [...] first tri scree n, normal amnio/microarray at [facility](Confirmed) 2, 3 Active Abnormal chromosomal and [...] hydroureter; normal appearing urinary bladder; connected with [facility] 8Reports does not have an inhaler. [...] Most recent to oldest [Reference Range]: 1 Weight 90.4 kg (06/05/21 8:33 AM) Oxygen Saturation [94-100 %] 98 % (06/05/21 9:10 AM) Blood Pressure [90-138/55-84 mm Hg] 120/ 75mm Hg (06/05/21 9:10 AM) Temperature [96.8-100.4 DegF] 98.6 DegF (06/05/21 8:33 AM) Blood pressure sites Arm, left (06/05/21 9:10 AM) Temperature Route Oral (06/05/21 8:33 AM) Dry Weight 90.4 kg (06/05/21 8:33 AM) Weight Obtained Via Standing scale (06/05/21 8:33 AM) Dry Weight Obtained Via Standing scale (06/05/21 8:33 AM) Social History Social History Type Response Smoking Status Former smoker, quit more than 30 days ago; Other: Quit about two and a half years ago; entered on: 11/26/20 Sex
--- OUTSIDE RECORDS SUMMARY | 2024-05-31 10:49 | XMS_ITS | Continuity of Care Document ---
Author Organization [facility] Address [address] [place] [address]- Care Team Providers Care Video Game Script Writer Name Role Phone Jason Jessi MONIQUE Primary Care Physician Encounter [facility] [place] Date(s): 01/05/24 - 02/04/[address] [address]- Allergies, Adverse Reactions, Alerts Substance Reaction Severity [...] 01/08/24 14:51:00 EDT, Route to Pharmacy Electronically, [facility]/pharmacy #[id number], Partialfill upon patient request if the prescription [...] 01/08/24 14:51:00 EDT, Route to Pharmacy Electronically, [facility]/pharmacy #[id number], Partial fill upon [...] Refills, Maintenance, 01/10/24 12:13:00 EDT, REC Powder, [facility]/pharmacy #[id number], Partial fill upon [...] 01/20/24 9:36:00 EDT, Route to Pharmacy Electronically, [facility]/pharmacy #[id number] Tablet, Partial fill upon patient [...] Abnormal first tri screen, normal amnio/microarray at [facility] 2, 3 Confirmed Active Abnormal [...] hydroureter; normal appearing urinary bladder; connected with [facility] 8Reports does not have an [...] Team Personnel Name: Mavis Okeefe RN Position: [facility] RN Member Role: Primary Care Nurse Name: Alanis Oneal MA Position: [facility] DIALLO [place] Member Role: Lifetime Consulting Physician Name: Fannie Hall RN Position: [facility] RN Member Role: Primary Care Nurse Name: Jessi Gomez DO Position: [facility] Physician (General Medicine) Member Role: PCP Address: Address: [address] [place] [address] [place] [address]- Name: Darby Trevizo NP Position: [facility] PCO Associate Professional Member Role: Primary Care Nurse Address: Address: [address] [facility] [place] [address]- Care Team Related Persons Name: RADHA DOVE Name: DEXTER CELESTIN Address: home [address] [place] [address] Name: BALA MAYER Address: [place] [address] Name: LARISA VILLA Address: [place] Address: [address] Name: LAXMI VILLA Address: [place] Address: [address] Name: [place] Address: [place] [address]
--- OUTSIDE RECORDS SUMMARY | 2024-05-31 10:49 | XMS_ITS | Continuity of Care Document ---
Author Organization [facility] Address [address] [place] [address]- Care Team Providers Care Building Drafting Officer Name Role Phone Not on Staff, PCP Primary Care Physician Unavail able Encounter [facility] Date(s): 11/24/22 - 11/25/[address] [address]- Discharge Disposition: A-D/C Home Attending Physician: Maude Manriquez MD Admitting Physician: Maude Manriquez MD Referring Physician: Not on Staff, Referring [...] EDT, Tablet Start Date: 04/08/19 Status: Ordered Keflex Capsule 250 mg, By Mouth, Every 6 hours, Maintenance, 11/11/22 21:43:00 EST Start Date: 11/11/22 Status: Ordered ondansetron 4 mg oral tablet, disintegrating 1 tablet = 4 mg, By Mouth, Every 8 hours, PRN Nausea & Vomiting, # 15 tablet, 0 Refills, Acute 11/30/22 0:01:00 EST, 11/25/22 0:01:00 EST, Tablet, [id number], May substitute tablet form if necessary., 158, cm, 11/24/22 22:00:00 EST, Height, 75... Start Date: 11/25/22 Stop Date: 11/30/22 Status: Ordered sertraline 50 mg oral tablet [...] Abnormal first tri screen, normal amnio/microarray at [facility] 2, 3 Confirmed Active Abnormal [...] Confirmed Active 1Patient states last PAP at [facility] about three years ago was ASCUS [...] hydroureter; normal appearing urinary bladder; connected with [facility] 8Reports does not have an inhaler. [...] recent to oldest [Reference Range]: 1 2 Height 158 cm (11/24/22 10:00 PM) 158 cm (11/24/22 9:53 PM) Weight 75.8 kg (11/24/22 10:00 PM) Oxygen Saturation [94-100 %] 95 % (11/24/22 10:00 PM) 99 % (11/24/22 9:53 PM) Pulse Rate [55-90 bpm] 96 bpm *H* (11/24/22 10:00 PM) 108 bpm *H* (11/24/22 9:53 PM) Blood Pressure [90-138/55-84 mm Hg] 126/ 72mm Hg (11/24/22 10:00 PM) Respiratory Rate [16-30 br/min] 20 br/mi n (11/24/22 10:00 PM) 20 br/min (11/24/22 9:53 PM) Temperature [96.8-100.4 DegF] 98.6 DegF (11/24/22 10:00 PM) Mode of Delivery (Oxygen) Room air (11/24/22 10:00 PM) Room air (11/24/22 9:53 PM) Blood pressure sites Arm, left (11/24/22 10:00 PM) Temperature Route Oral (11/24/22 10:00 PM) Dry Weight 75.8 kg (11/24/22 10:00 PM) Weight Obtained Via Standing scale (11/24/22 10:00 PM) Dry Weight Obtained Via Standing scale (11/24/22 10:00 PM) Social History Social History Type Response Tobacco Other: I smoke erum temitope . Sex Note * Mitra SAMANIEGO, Maude Tavera: PERFORM Event Display: Patient Education Leaflets Authored Date: [id number] Ondansetron Disintegrating Oral Tablet ?? [id number] Ondansetron Disintegrating Oral Tablet Uses For nausea or vomiting. ?? Instructions Let the medicine dissolve on your tongue and then swallow. Keep the medicine at room temperature. Avoid heat and direct light. Tell your doctor if you have severe or persistent sweating, diarrhea or vomiting. These can increase your risk of a serious side effect. If you are using this medicine regularly, it is important to take each dose of medicine on time. Keep taking the medicine even if you feel well. If you forget to take a dose on time, take it as soon as you remember. If it is almost time for thenext dose, do not take the missed dose. Return to your normal schedule. Do not take 2 doses at one time. Drug interactions can change how medicines work or increase risk for side effects. Tell your healthcare providers about all medicines taken. Include prescription and yrnr-vdu-gimgplo medicines, vitamins, and herbal medicines. Speak with your doctor or pharmacist before starting or stopping any medicine. Tell your doctor if symptoms do not get better or if they get worse. Keep all appointments for medical exams and tests while on this medicine. ?? Cautions Tell your doctor and pharmacist if you ever had an allergic reaction to a medicine. Some patients taking this medicine have experienced serious side effects. Please speak with your doctor to understand the risks and benefits associated with this medicine. Do not use the medication any more than instructed. Please check with your doctor before drinking alcohol while on this medicine. Call the doctor if there are any signs of confusion or unusual changes in behavior. Tell the doctor or pharmacist if you are , planning to be , or . Do not take Lovely's wort while on this medicine. Do not share this medicine with anyone who has not been prescribed this medicine. ?? Side Effects The following is a list of some common side effects from this medicine. Please speak with your doctor about what you should do if you experience these or other side effects. ??? constipation ??? dizziness or drowsiness ??? lack of energy and tiredness ??? headaches Call your doctor or get medical help right away if you notice any of these more serious side effects: ??? agitated feeling or trouble sleeping ??? loss of balance ??? diarrhea ??? fainting ??? fever ??? hallucinations (unusual thoughts, seeing or hearing things that are not real) ??? fast or irregular heart beats ??? muscle aches, spasms or abnormal movements ??? muscle trembling ??? stomach pain ??? blurring or changes of vision ??? severe or persistent vomiting A few people may have an allergic reaction to this medicine. Symptoms can include difficulty breathing, skin rash, itching, swelling, or severe dizziness. If you notice any of these symptoms, seek medical help quickly. ?? Extra Please speak with your doctor, nurse, or pharmacist if you have any questions about this medicine. ?? [email or web address] IMPORTANT NOTE: This document tells you briefly how to take your medicine, but it does not tell youall there is to know about it. Your doctor or pharmacist may give you other documents about your medicine. Please talk to them if you have any questions. Always follow their advice. There is a more complete description of this medicine available in [employer] [place]. Scan this code on your smartphone or tablet or use the web address below. You can also ask your pharmacist for a printout. If you have any questions, please ask your pharmacist. The display and use of this drug information is subject to Terms of Use. Copyright(c) 2021 [employer]. ?? [employer]. All rights reserved. This information is not intended as a substitute for professional medical care. Always follow your healthcare professional's instructions. ?? * Mitra SAMANIEGO, Maude Tavera: PERFORM Event Display: Patient Education Leaflets Authored Date: Vomiting (Adult) ?? [id number] Vomiting (Adult) Vomiting is a common symptom that may be due to different causes. These include gastroenteritis (stomach flu), food poisoning, and gastritis. Other more serious causes of vomiting may be hard to diagnose early in the illness. That's why it's important to watch for the warning signs listed below. The main danger from repeated vomiting is dehydration. This is because of the loss of water and minerals from the body. When this occurs, your body fluids must be replaced. Home care ??? If symptoms are severe, rest at home for the next 24 hours. ??? Because your symptoms may be from an infection, wash your hands often and well. Use soap and clean, running water or alcohol-based vendor relationship manager to keep from spreading the infection to others. ??? Wash your hands for at least 20 seconds. Scrub all surfaces of your hands, including between your fingers and under your fingernails each time you wash. Humming the Happy Birthday song twice while you wash is an easy way to make sure you've washed for 20 seconds. ??? Wash your hands after using the toilet, before and after preparing food, before eating food, after changing a diaper, cleaning a wound, caring for a sick person, and blowing your nose, coughing, or sneezing. You should also wash your hands after caring for someone who is sick, touching pet food, or treats, and touching an animal, or animal waste. ??? You may use acetaminophen??or NSAID medicines such as ibuprofen or naproxen to control fever, unless another medicinewas prescribed. Talk with your provider before using these medicines if you have chronic liver or kidney disease or ever had a stomach ulcer or digestive bleeding. Never give aspirin to anyone younger than 18 who is ill with a fever. It may cause severe liver damage. Don't use NSAID medicines if you are already taking one for another condition such as arthritis or take aspirin for heart disease or after a stroke. ??? Don't use tobacco or drink alcohol. These may make your symptoms worse. If youhave trouble stopping either substance, ask your provider for treatment resources. ??? If medicinesfor vomiting were prescribed, take as directed. Tell your provider if they don't work within the expected time period. ??? Once vomiting stops, then follow these guidelines: During the first 12 to 24 hours, follow the diet below: ??? Fruit juices. Apple, grape juice, clear fruit drinks, and electrolyte replacement drinks. ??? Beverages. Water, soft drinks without caffeine; mineral water (plain or flavored), and decaffeinated tea and coffee. ??? Soups. Clear broth and bouillon. ??? Desserts. Plain gelatin, ice pops, and fruit juice bars. As you feel better, you may add 6 to 8 ounces of yogurt per day. During the next 24 hours you may add the following to the above: ??? Hot cereal, plain toast, bread, rolls, and crackers ??? Plain noodles, rice, mashed potatoes, and chicken noodle or rice soup ??? Unsweetened canned fruit such as applesauce, bananas. Don't have pineapple or citrus. ??? Limit caffeine and chocolate. No spices or seasonings except salt. During the next 24 hours: Gradually go back to your normal diet, as you feel better and your symptoms lessen. ?? Follow-up care Follow up with your healthcare provider as advised. ?? When to seek medical advice Call your healthcare provider right away if any of these occur: ??? Constant right-sided lower belly pain or increasing general belly pain ??? Continued vomiting (unable to keep liquids down) for 24 hours ??? Vomiting blood or what looks like coffee grounds ??? Swollen belly ??? Frequent diarrhea (more than 5 times a day), or blood (red or black color) or mucus in diarrhea ??? Peeing less than usual or extreme thirst ??? Weakness, dizziness, or fainting ??? Unusually drowsy or confused ??? Fever of 100.4??F (38??C) oral or higher, or as directed by your provider ??? Yellow color of the eyes or skin ??? Other symptoms get worse or you have new symptoms ?? Last Reviewed Date: 2021 ?? 1812-6678 The [employer]. All rights reserved. This information is not intended as a substitute for professional medical care. Always follow your healthcare professional's instructions. ?? Patient Care team information Care Team Personnel Name: Jm PEARSON Alanis Position: [facility] PCO RN Member Role: Lifetime Consulting Physician Name: Darby Trevizo RN Position: [facility] RN Member Role: Primary Care Nurse Name: Not on Staff, PCP Position: [facility] Physician (General Medicine) Member Role: PCP Name: Trisha Faust RN Position: [facility] ED RN W/OE and Tasks Member Role: Patient Care Provider Name: Maude Manriquez MD Position: [facility] ED Medicine MD Member Role: ED Attending Physician Address: Address: [address] [place] [address]- Name: Fatou Jenkins Position: [facility] ED OA Care Team Related Persons Name: RADHA DOVE Name: DEXTER CELESTIN Address: home [address] [place] [address] Name: BALA MAYER Address: [address] [address] Name: LARISA VILLA Address: [place] Address: [address] Name: LAXMI VILLA [facility] Address: [place] [id number] Name: S[place] V[place] Address: [place] [address]
--- OUTSIDE RECORDS SUMMARY | 2024-05-31 10:49 | XMS_ITS | Continuity of Care Document ---
Author Organization [facility] Address [address] [place] [address]- Care Team Providers Care It Lead Name Role Phone Paige SAMANIEGO, Kenzie Simons Primary Care Physician Encounter [facility] Date(s): 12/04/21 - 01/03/[address] [address]- Allergies, Adverse Reactions, Alerts Substance Reaction Severity [...] Refills, Maintenance, 09/07/21 1:33:00 EST, Tablet, [id number], Partial fill upon patient request if the [...] first tri scree n, normal amnio/microarray at [facility](Confirmed) 2, 3 Active Abnormal chromosomal and [...] 14 Active 1Patient states last PAP at [facility] about three years ago was ASCUS [...] hydroureter; normal appearing urinary bladder; connected with [facility] 8Reports does not have an inhaler. [...]
--- OUTSIDE RECORDS SUMMARY | 2024-05-31 10:49 | XMS_ITS | Continuity of Care Document ---
Author Organization [facility] Address [address] [place] [address]- Care Team Providers Care Overhead Irrigator Name Role Phone Not on Staff, PCP Primary Care Physician Unavail able Encounter [facility] Date(s): 03/17/23 - 03/17/[address] [address]- Discharge Disposition: A-D/C Home Attending Physician: Desmond SAMANIEGO, Daniel Stephens Admitting Physician: Desmond SAMANIEGO, Daniel Stephens Referring Physician: Not on Staff, Referring MD [...] virus vaccine, inactivated 12/28/20 Give n Medications Augmentin 875 mg-125 mg oral tablet 1 tablet, By Mouth, Every 12 hours, for 7 days, # 14 tablet, 0 Refills, Acute 03/24/23 16:19:00 EDT, 03/17/23 16:19:00 EDT, Tablet, [facility]/pharmacy #[id number], Partial fill upon patient request if the prescription is for a schedule II opioid drug., 152, cm, 0... Start Date: 03/17/23 Stop Date: 03/24/23 Status: Ordered clonazePAM 0.5 mg oral tablet = 0.5 mg, By Mouth, 2 times a day, 0 Refills, Maintenance, 04/08/19 7:40:37 EDT, Tablet Start Date: 04/08/19 Status: Ordered Keflex Capsule 250 mg, By Mouth, Every 6 hours, Maintenance, 11/11/22 21:43:00 EST Start Date: 11/11/22 Status: Ordered sertraline 50 mg oral tablet [...] Abnormal first tri screen, normal amnio/microarray at [facility] 2, 3 Confirmed Active Abnormal chromosomal [...] Confirmed Active 1Patient states last PAP at [facility] about three years ago was ASCUS 2Son [...] hydroureter; normal appearing urinary bladder; connected with [facility] 8Reports does not have an inhaler. [...] oldest [Reference Range]: 1 2 3 Height 152 cm (03/17/23 4:20 PM) 152 cm (03/17/23 3:13 PM) 152 cm (03/17/23 12:51 PM) Weight 80 kg (03/17/23 4:20 PM) 80 kg (03/17/23 3:13 PM) 80 kg (03/17/23 12:51 PM) Oxygen Saturation [94-100 %] 98 % (03/17/23:13 PM) 100 % (03/17/23 12:53 PM) Pulse Rate [55-90 bpm] 78 bpm (03/17/23:13 PM) 86 bpm (03/17/23 12:53 PM) Body Mass Index [18.5-24.99 kg/m2] 34.63 kg/m2 *>HHI* (03/17/23 3:13 PM) Blood Pressure [90-138/55-84 mm Hg] 129/74mm Hg (03/17/23 3:13 PM) 125/77mm Hg (03/17/23 12:53 PM) Respiratory Rate [16-30 br/min] 16 br/min (03/17/23 12:53 PM) Temperature [96.8-100.4 DegF] 97.4 DegF (03/17/23 12:53 PM) Mode of Delivery (Oxygen) Room air (03/17/23 3:13 PM) Room air (03/17/23 12:53 PM) Blood pressure sites Arm, left (03/17/23 3:13 PM) Temperature Route Temporal (03/17/23 12:53 PM) Dry Weight 80 kg (03/17/23 4:20 PM) 80 kg (03/17/23 3:13 PM) 80 kg (03/17/23 12:51 PM) Social History Social History Type Response Tobacco Other: I smoke erum temitope . Sex Patient Care team information Care Team Personnel Name: Alanis Oneal MA Position: [facility] [place] Office Staff Member Role: Lifetime Consulting Physician Name: Darby Trevizo RN Position: [facility] RN Member Role: Primary Care Nurse Name: Not on Staff, PCP Position: [facility] Physician (General Medicine) Member Role: PCP Name: Purnima Ruth Position: [facility] ED OA Member Role: Solid Waste Management Engineer Name: Lashawn Marcum Position: [facility] ED RN W/OE and Tasks Member Role: Patient Care Provider Name: Van Larson MD Position: [facility] ED Medicine MD Member Role: ED Attending Physician Address: Address: [address] [place] [address] [place] [address]- Care Team Related Persons Name: RADHA DOVE Name: SABI DEXTER Address: home [address] [place] [address] Name: BALA MAYER Address: [address] [place] [address] Name: LARISA VILLA Address: [employer] Address: [address] [place] [address] [place] Name: LAXMI VILLA Address: [employer] Address: [address] [place] [address] [place] Name: SANTA VILLA Address: [address] [place] [address]
--- OUTSIDE RECORDS SUMMARY | 2024-05-31 10:49 | XMS_ITS | Continuity of Care Document ---
Author Organization [facility] Address [address] [place] [address]- Care Team Providers Care [place] Seamer Name Role Phone Paige SAMANIEGO, Edwin Primary Care Physician Encounter [facility] Date(s): 05/01/22 - 06/04/[address] [id number] Attending Physician: Not on Staff, Attending [...] Refills, Maintenance, 09/07/21 1:33:00 EST, Tablet, [facility] #[id number], Partial fill upon patient request if the prescription is for a schedule II opioid drug., 158, cm, 1... Start Date: 09/07/21 Status: Ordered ondansetron 4 mg oral tablet, disintegrating 1 tablet = 4 mg, By Mouth, Every 8 hours, PRN Nausea & Vomiting, # 10 tablet, 0 Refills, Maintenance, 09/19/21 17:01:00 EST, Tablet, [facility]/pharmacy #[id number], Partial fill upon patient request [...] 3 Refills, Maintenance, 11/07/20 12:22:00 EST, Tablet, [facility]/pharmacy #[id number], Partial fill upon patient request [...] 0 Refills,Maintenance, 12/03/21 11:06:00 EST, Tablet, [id number], Partial fill upon patient request if the prescription is for a schedule II opioid drug.... Start Date: 12/03/21 Status: Ordered Problem List Condition Effective Dates Status Health Status Inform ant Abnormal Pap smear of cervix(Confirmed) 1 Active H/O Abnormal first tri scree n, normal amnio/microarray at [facility](Confirmed) 2, 3 Active Abnormal chromosomal [...] 14 Active 1Patient states last PAP at [facility] about three years ago was ASCUS [...] hydroureter; normal appearing urinary bladder; connected with [facility] 8Reports does not [...]
--- OUTSIDE RECORDS SUMMARY | 2024-05-31 10:49 | XMS_ITS | Continuity of Care Document ---
Author Organization [facility] Address [address] [place] [address]- Care Team Providers Care Chief Clinical Officer Name Role Phone Edwin Gibson MD Primary Care Physician [phone] Encounter [facility] Date(s): 12/29/20 - 04/28/[address] [address]- Attending Physician: Not on Staff, Attending MD Referring Physician: Edwin Gibson MD Allergies, Adverse Reactions, Alerts Substance Reaction [...] first tri scree n, normal amnio/microarray at [facility](Confirmed) 2, 3 Active Anxiety, depression, complex [...] Active 1Patient states last PAP at [facility] about three years ago was ASCUS 2Son [...] appearing urinary bladder; connected with [facility] 8Reports does not have an [...]
--- OUTSIDE RECORDS SUMMARY | 2024-05-31 10:49 | XMS_ITS | Continuity of Care Document ---
Author Organization [facility] Address [address] [place] [address]- Care Team Providers Care Mergers And Acquisitions Attorney Name Role Phone Paige SAMANIEGO, Edwin Primary Care Physician [phone] En[id number] Date(s): 12/25/20 - 01/24/21 [facility] [address] [address]- Allergies, Adverse Reactions, Alerts Substance Reaction Severity [...] tri scree n, normal amnio/microarray at [facility](Confirmed) 2, 3 Active Anxiety, depression, complex social [...] 14 Active 1Patient states last PAP at [facility] about three years ago was ASCUS [...] hydroureter; normal appearing urinary bladder; connected with [facility] 8Reports does not have an inhaler. 9Smokes [...]
--- OUTSIDE RECORDS SUMMARY | 2024-05-31 10:49 | XMS_ITS | Continuity of Care Document ---
Author Organization [facility] Address [address] [place] [address]- Care Team Providers Care Collector Of Aquarium Specimens Name Role Phone Paige SAMANIGEO, Edwin Primary Care Physician Encounter [facility] Date(s): 04/29/21 - 07/25/[address] [id number] Attending Physician: [...] first tri scree n, normal amnio/microarray at [facility](Confirmed) 2, 3 Active Abnormal chromosomal and gen [...] 1Patient states last PAP at [facility] about three years ago was ASCUS 2Son [...] hydroureter; normal appearing urinary bladder; connected with [facility] 8Reports does not have an inhaler. [...]
--- OUTSIDE RECORDS SUMMARY | 2024-05-31 10:49 | XMS_ITS | Continuity of Care Document ---
Author Organization [facility] Address [address] [place] [address]- Care Team Providers Care Principal Database Developer Name Role Phone Jessi Gomez DO Primary Care Physician Encounter [facility] Date(s): 01/03/24 - 01/03/[address] [address]- Discharge Disposition: A-D/C Home Attending Physician: Rafael Jennings DO Admitting Physician: Rafael Jennings DO Referring Physician: Not on Staff, Referring MD Allergies, Adverse Reactions, Alerts Substance Reaction Severity Status ciprofloxacin Hives Active Latex Hives Active Other Food Allergy 1 Acute vomiting Skin rash Active sulfADIAZINE Hives Active Dilaudid Active Ciloxan 0.3% ophthalmic solution reaction Active [...] opioid drug. Start Date: 03/24/23 Status: Ordered ondansetron 4 mg oral tablet, disintegrating 1 tablet = 4 mg, By Mouth, Every 8 hours, PRN as needed for nausea/vomiting, # 12 tablet, 0 Refills, Maintenance, 01/03/24 6:11:00 EDT, DIS Tablet, [facility]/pharmacy #[id number], Partial fill upon patient request if the prescription is for a schedule II opioid d... Start Date: 01/03/24 Status: Ordered sertraline 50 mg oral tablet = 50 mg, By Mouth, Daily, Take 50mg (1 tablet) by mouth for 3 weeks (21 days) then take 100mg (2 tablets) by mouth., # 30 tablet, 3 Refills, Maintenance, 04/08/19 7:40:50 EDT, Tablet Start Date: 04/08/19 Stop Date: 08/06/19 Status: Ordered Toradol Inj 15 mg, Injection, IV Push Slowly, Once, STAT, 01/03/24 4:03:00 EDT, Stop date 01/03/24 4:03:00 EDT Start Date: 01/03/24 Stop Date: 01/03/24 Status: Completed Problem List Condition Confirmation Course Effective Dates Status Health St [facility]us Informant Abnormal Pap smear of cervix 1 Confirmed Active H/O Abnormal first tri screen, normal amnio/microarray at [facility] 2, 3 Confirmed Active Abnormal chromosomal [...] Confirmed Active 1Patient states last PAP at [facility] about three years ago was [...] hydroureter; normal appearing urinary bladder; connected with [facility] 8Reports does not have [...] Range]: 1 2 3 Height 157.5 cm (01/03/24 6:19 AM) 157.5 cm (01/03/24 2:49 AM) Weight 79.7 kg (01/03/24 6:19 AM) 79.7 kg (01/03/24 2:49 AM) Oxygen Saturation [94-100 %] 96 % (01/03/24 6:19 AM) 97 % (01/03/24 2:49 AM) Pulse Rate [55-90 bpm] 79 bpm (01/03/24 6:19 AM) 136 bpm *H* (01/03/24 2:49 AM) Body Mass Index [18.5-24.99 kg/m2] 32.13 kg/m2 *>HHI* (01/03/24 6:19 AM) Blood Pressure [90-138/55-84 mm Hg] 159/84mm Hg *H* (01/03/24 6:19 AM) 135/92mm Hg (01/03/24 2:49 AM) Respiratory Rate [16-30 br/min] 19 br/min (01/03/24 6:19 AM) 16 br/min (01/03/24 4:41 AM) 20 br/min (01/03/24 2:49 AM) Temperature [96.8-100.4 DegF] 98.4 DegF (01/03/24 6:19 AM) 97.6 DegF (01/03/24 4:28 AM) 97.5 DegF (01/03/24 2:49 AM) Mode of Delivery (Oxygen) Room air (01/03/24 6:19 AM) Room air (01/03/24 2:49 AM) Blood pressure sites Arm, left (01/03/24 6:19 AM) Arm, left (01/03/24 2:49 AM) Temperature Route Oral (01/03/24 6:19 AM) Oral (01/03/24 4:28 AM) Tympanic (01/03/24 2:49 AM) Dry Weight 79.7 kg (01/03/24 6:19 AM) 79.7 kg (01/03/24 2:49 AM) Weight Obtained Via Standing scale (01/03/24 2:49 AM) Dry Weight Obtained Via Standing scale (01/03/24 2:49 AM) Social History Social History Type Response Tobacco Other: I smoke erum temitope . Sex Patient Care team information Care Team Personnel Name: Alanis Oneal MA Position: [facility] DIALLO PEARSON Member Role: Lifetime Consulting Physician Name: Jessi Gomez DO Position: [facility] Physician (General Medicine) Member Role: PCP Address: Address: [address] [facility] [place] [address]- Name: Darby Trevizo NP Position: [facility] PCO Associate Professional Member Role: Primary Care Nurse Address: Address: [address] [place] [address] [facility] [place] [address]- Care Team Related Persons Name: RADHA DOVE Name: DEXTER CELESTIN Address: [address] [place] [address] Name: BALA MAYER Address: [address] [place] [address] Name: LARISA VILLA Address: [employer] Address: [address] [place] [address] [place] Name: LAXMI VILLA [facility] Address: [address] Name: SANTA VILLA Address: [address] [place] [address]
--- OUTSIDE RECORDS SUMMARY | 2024-05-31 10:49 | XMS_ITS | Continuity of Care Document ---
Author Organization [facility] Address [address] [place] [address]- Care Team Providers Care Insurance Billing Specialist Name Role Phone Edwin Gibson MD Primary Care Physician [phone] [facility] Date(s): 06/25/21 - 09/01/[address] [id number] Attending Physician: Not on Staff, [...] first tri scree n, normal amnio/microarray at [facility](Confirmed) 2, 3 Active Abnormal chromosomal and [...] 1Patient states last PAP at [facility] about three years ago was ASCUS [...] hydroureter; normal appearing urinary bladder; connected with [facility] 8Reports does not have an [...]
[2024-05-31] MEDS: Metoclopramide HCl 10 MG/2 ML VIAL IVPUSH (12:08)
[2024-05-31] MEDS: diphenhydrAMINE HCL 50 MG/ML VIAL 25 MG IVPUSH (12:08)
[2024-05-31] MEDS: 0.9 % Sodium Chloride 1,000 ML 999 ML IV ×2 (12:14→13:41)
--- NOTE | 2024-05-31 12:19 | ED.GENADULT ---
HPI - General Adult General Chief complaint: Nausea/Vomiting/Diarrhea Stated complaint: N/V X 24 HRS,WEAK Time Seen by Provider: 05/31/24 11:14 Source: patient, family and EMS Mode of arrival: EMS Limitations: no limitations History of Present Illness ED Provider: Gil HPI narrative: Patient is a 28-year-old female with history of anxiety and depression, IBS, anomalous implantation of ureter, hysterectomy in December of this year presenting to the emergency department with complaint of lower abdominal pain, nausea, vomiting and diarrhea for the past 24 hours. Patient also notes that she has not been able to take her Klonopin for anxiety due to vomiting and feels increased anxiety as well. Denies fevers. Reports decreased urine output due to unable to tolerate p.o. fluids. Daily cannabis use for the past ten years. No one at home sick with similar symptoms. MD complaint: nausea, vomiting, diarrhea Onset (ago): hour(s) Treatments prior to arrival: none Related Data Previous Rx's ?Medication ?Instructions ?Recorded metoclopramide HCl 10 mg tablet 10 mg PO Q6H PRN nausea and 08/08/20 (Reglan) vomiting #20 tabs magnesium oxide 400 mg PO DAILY #3 tabs 05/31/24 prochlorperazine 25 mg rectal 25 mg MN BID PRN nausea and 05/31/24 suppository (Compazine) vomiting #12 ea Allergies Allergy/AdvReac Type Severity Reaction Status Date / Time ondansetron [From ZOFRAN] Allergy Intermediate HIVES AND Verified 05/31/24 10:33 VOMITING Sulfa (Sulfonamide Allergy Intermediate HIVES Verified 05/31/24 10:33 Antibiotics) [SULFA (SULFONAMIDE ANTIBIOTICS)] sulfamethoxazole Allergy Intermediate DIARRHEA Verified 05/31/24 10:33 [From BACTRIM] AND VOMITING trimethoprim [From BACTRIM] Allergy Intermediate DIARRHEA Verified 05/31/24 10:33 AND VOMITING ciprofloxacin [From CIPRO] Allergy Mild HIVES Verified 05/31/24 10:33 latex [LATEX] Allergy Mild ITCHING Verified 05/31/24 10:33 Review of Systems Review of Systems: As per HPI Yes all other systems are reviewed and are negative Constitutional: Constitutional: Reports as per HPI PMFSH Past Medical History Medical History (Updated 05/31/24 @ 15:34 by No Cordero NP) Anomalous implantation of ureter Depression IBS (irritable colon syndrome) Anxiety Social History Social History Alcohol intake: never Smoked in Last 30 Days: No Use of substances other than those prescribed or required for medical reasons: Yes Substance Use Type: Marijuana Advance Directives: No Advance Directives Information Provided: No Do you have a plan to hurt others: No Plan Patient : No Physical Exam ED Vital Signs: Vital Signs - 24 hr 05/31/24 10:25 05/31/24 14:57 Temperature 98.0 F 96.7 F L Pulse Rate 104 H 87 Respiratory Rate 15 19 Blood Pressure 128/70 114/84 Pulse Oximetry 99 98 Oxygen Delivery Method Room Air Room Air BMI result Body Mass Index 30.5 Vital signs have been reviewed and appear to be correct. Blood pressure normal. Heart rate slightly tachycardic. Respiratory rate normal. Temperature normal. Oxygen saturation normal. Const General: cooperative, healthy appearing and no acute distress Orientation/consciousness: oriented to person, oriented to place, oriented to time and patient oriented x3 Limitations: no limitations HENMT Head: Yes normocephalic and Yes atraumatic Ears: external ears normal General nose exam: Normal external nose present Face and sinus: Yes face symmetric Mouth: oropharynx normal and moist mucous membranes Throat: Yes uvula midline Eyes Pupils: Equal, round and reactive pupils present Neck Neck: Yes normal visual inspection and Yes supple Resp Effort & Inspection: normal respiratory effort and able to speak in complete sentences Auscultation: clear to auscultation bilaterally Cardio Rate: regular rate Rhythm: regular rhythm Heart sounds: S1 normal heart sound present and S2 normal heart sound present GI Other: Difficult to fully assess as patient actively vomiting Palpation (GI): Soft to palpation and nontender Auscultation: normoactive bowel sounds General: Yes no CVA tenderness Back/Spine/Pelvis Back: no CVA tenderness Skin General skin exam: elasticity normal and turgor normal Neuro General: oriented to person, oriented to place, oriented to time, patient oriented x3, moves all extremities, no focal motor deficits and CN's II-XI intact bilaterally Cranial nerves: Yes Equal, round and reactive pupils present Cognition (Neuro): normal cognition Extrem General: Yes full ROM, Yes no pedal edema and Yes no calf tenderness Psych Mental Status: mental status grossly normal Affect: normal affect Thought process: Normal thought process present Course Course Course Narrative: 11:45 IV fluids, benadryl and reglan ordered 12:20 Patient continues to wretch/vomit small amounts of clear fluid despite medications and fluid, zofran and ativan ordered, as patient has been unable to take her Klonopin 13:25 Patient continues to wretch despite zofran and ativan, additional atival and droperidol ordered, as family reports concern for cyclical vomiting/CHS 15:00 Patient reports improvement in nausea but complains of epigastric pain, Maalox and lidocaine ordred. Medications Administered Discontinued Medications Generic Name Dose Route Start Last Admin Trade Name Freq PRN Reason Stop Dose Admin Al Hydroxide/Mg Hydroxide 30 ml 05/31/24 14:56 05/31/24 16:16 Magnesium Hydrox/Alum Hydrox 30 Ml Oral.Susp PO 05/31/24 14:57 Not Given ONCE ONE Diphenhydramine HCl 25 mg 05/31/24 11:49 05/31/24 12:08 Diphenhydramine Hcl 50 Mg/Ml Vial IVPUSH 05/31/24 11:50 25 mg ONCE ONE Administration Droperidol 1.25 mg 05/31/24 13:27 05/31/24 13:36 Droperidol 5 Mg/2 Ml Vial IVPUSH 05/31/24 13:28 1.25 mg ONCE ONE Administration Droperidol 1.25 mg 05/31/24 15:55 05/31/24 16:17 Droperidol 5 Mg/2 Ml Vial IM 05/31/24 15:56 Not Given ONCE ONE Droperidol 1.25 mg 05/31/24 16:02 05/31/24 16:09 Droperidol 5 Mg/2 Ml Vial IVPUSH 05/31/24 16:03 1.25 mg ONCE ONE Administration Haloperidol Lactate 2.5 mg 05/31/24 13:15 05/31/24 13:31 Haloperidol Lactate 5 Mg/Ml Vial IVPUSH 05/31/24 13:16 Not Given ONCE ONE Sodium Chloride 1,000 mls @ 999 mls/hr 05/31/24 12:00 05/31/24 13:49 Ns IV 05/31/24 13:00 Infused .Q1H1M GIL Infusion Sodium Chloride 1,000 mls @ 999 mls/hr 05/31/24 13:30 05/31/24 13:41 Ns IV 05/31/24 14:30 999 mls/hr .Q1H1M GIL Administration Magnesium Sulfate 2 gm in 50 mls @ 25 mls/hr 05/31/24 13:34 05/31/24 15:55 Magnesium Sulfate/H2o IV 05/31/24 15:33 Infused ONCE ONE Infusion Lidocaine HCl 10 ml 05/31/24 14:56 05/31/24 16:17 Lidocaine Hcl Viscous 2 % 15 Ml Solution MUCOUS MEM 05/31/24 14:57 Not Given ONCE ONE Lorazepam 1 mg 05/31/24 12:25 05/31/24 12:45 Lorazepam 2 Mg/Ml Vial IVPUSH 05/31/24 12:26 1 mg ONCE ONE Administration Lorazepam 1 mg 05/31/24 13:15 05/31/24 13:36 Lorazepam 2 Mg/Ml Vial IVPUSH 05/31/24 13:16 1 mg STAT STA Administration Metoclopramide HCl 10 mg 05/31/24 11:49 05/31/24 12:08 Metoclopramide Hcl 10 Mg/2 Ml Vial IVPUSH 05/31/24 11:50 10 mg ONCE ONE Administration Ondansetron HCl 4 mg 05/31/24 12:25 05/31/24 12:45 Ondansetron Hcl 4 Mg/2 Ml Vial IVPUSH 05/31/24 12:26 4 mg ONCE ONE Administration Medical Decision Making Medical Decision Making MDM Narrative: Patient is a 28-year-old female with history of anxiety and depression, IBS, anomalous implantation of ureter, hysterectomy in December of this year presenting to the emergency department with complaint of lower abdominal pain, nausea, vomiting and diarrhea for the past 24 hours. On exam patient is awake, A+Ox3, VS WNL, afebrile, normal neurological exam without focal deficits, physical exam findings as above. Given reported symptoms and physical exam findings, initial differential includes gastroenteritis, cyclical vomiting syndrome, UTI/pyelonephritis. Unlikely appendicits, diverticulitis. Labs notable for hypomagnesemia. Patient denies any alcohol use, cannabis only. Does have IV magnesium ordered. Patient initially wretching despite several antiemetic medications. Given that patient admites to daily marijuana use, droperidol ordered which finally improved patient's symptoms. Patient signed out to ALEXANDRO Meyer pending PO challenge. Differential Diagnosis Differential Diagnoses: The differential diagnosis associated with the presentation includes As per [facility] Admission/Observation Consideration of admission/observation: Escalation of care including admission/observation considered Patient would have been admitted to the hospital had their work up had any findings where hospital admission was appropriate and their clinical presentation warranted hospital admission. Lab Data [facility] Lab Attestation statement: I reviewed the patient's lab results. As per [facility] 05/31/24 12:08 05/31/24 12:08 Labs: Lab Results 05/31/24 05/31/24 Range/Units 12:08 15:49 WBC 10.0 (4.8-10.8) X10*3/uL RBC 4.90 (4.20-5.50) X10*6/uL Hgb 15.9 (12.0-16.0) g/dl Hct 44.3 (37.0-47.0) % MCV 90.4 (80.0-98.0) fL MCH 32.4 (27.0-33.0) pg MCHC 35.9 H (31.0-35.0) g/dl RDW 12.5 (11.0-16.0) % Plt Count 239 (160-400) X10*3/uL MPV 11.0 (9.4-12.3) fL Immature Gran % (Auto) 0.4 (0.0-0.4) % Neut % (Auto) 82.9 H (45-73) % Lymph % (Auto) 11.7 L (20-40) % [place] % (Auto) 3.9 (2-11) % Eos % (Auto) 0.5 (0-4) % Baso % (Auto) 0.6 (0-2) % Lymph # (Auto) 1.2 (1.2-4.9) X10*3/uL [place] # (Auto) 0.4 (0.1-1.2) X10*3/uL Eos # (Auto) 0.1 (0.0-0.4) X10*3/uL Baso # (Auto) 0.1 (0.0-0.2) X10*3/uL Abs Immat Gran (auto) 0.04 H (0.00-0.03) X10*3/uL Absolute Neuts (auto) 8.3 (2.0-8.3) x10*3/uL Absolute Nucleated RBC 0.000 (0.0-0.012) X10*3/uL Nucleated RBC % (auto) 0.0 (0.0-0.2) /100WBC Sodium 144 (135-145) mmol/L Potassium 3.5 (3.3-5.1) mmol/L Chloride 110 H (96-108) mmol/L Carbon Dioxide 19 L (22-29) mmol/L Anion Gap 19 (12-20) BUN 11 (9-16) mg/dL Creatinine 0.82 (0.5-1.4) mg/dL Estim Creat Clear Calc 96.4 Estimated GFR > 60 Random Glucose 159 H (60-115) mg/dL Calcium 10.6 H D (8.4-10.2) mg/dL Magnesium 1.5 L (1.6-2.6) mg/dL Total Bilirubin 0.5 (0.0-1.0) mg/dL AST 17 (5-31) U/L ALT 14 (0-31) U/L Alkaline Phosphatase 71 (39-117) U/L Total Protein 8.2 H (6.5-8.0) g/dL Albumin 5.0 (3.5-5.0) g/dL Amylase 92 (28-100) U/L Lipase 13 (8-78) U/L Beta HCG, Quant < 2 mIU/mL Urine Color Yellow Urine Appearance Cloudy Urine pH 7.5 (5.0-9.0) Ur Specific [place] 1.020 (1.005-1.025) Urine Protein Negative (Neg-Trace) mg/dL Urine Glucose (UA) Negative (Negative) mg/dL Urine Ketones 40 (Negative) mg/dL Urine Blood Negative (Negative) Urine Nitrite Negative (Negative) Ur Leukocyte Esterase Negative (Negative) Influenza Type A (PCR) NEGATIVE (Negative) Influenza Type B (PCR) NEGATIVE (Negative) RSV RNA Qual (PCR) NEGATIVE (Negative) SARS-CoV-2 RNA (RT-PCR) NEGATIVE (Negative) Independent Interpretation I performed an independent interpretation of an: EKG (normal sinus rhythm with sinus arrhythmia, rate 80 bpm, normal MN interval and QTc, no change from prior) External Record Review External record reviewed: Inpatient record, Office record and Outpatient record Prescription Management I considered prescription management with: Other Critical Care Time Critical Care Time Critical Care Time: Yes Total Critical Care Time: 41 Attestation: I have personally provided critical care time exclusive of time spent on separately billable procedures. Time includes review of lab data, radiology results, discussion with consultants, and monitoring for potential decompensation. Intervention performed as documented. Discharge Plan Discharge Clinical Impression: Nausea & vomiting, Hypomagnesemia Patient Disposition: Still a Patient Instructions: Acute Nausea and Vomiting (ED), Cyclic Vomiting Syndrome (ED) Additional Instructions: You have been evaluated in the emergency department today for nausea, vomiting, and diarrhea. Your evaluation did not show evidence of conditions requiring emergent medical treatment at this time. Your symptoms improved in the emergency department with fluids and medications. Remember to drink plenty of fluids at home, especially fluids with electrolytes such as Pedialyte, Gatorade, etc.. You are being prescribed rectal compazine which you can use as per the prescription instructions for nausea. It is very likely that your symptoms are caused by cannabis use, you should attempt to cut back or discontinue use of this to decrease your symptoms. Your magnesium was low today and you were given magnesium through the IV. You are being prescribed additional magnesium supplements for the next 3 days. Please follow up with your primary care provider within two days. Return to the emergency department if you experience worsening or uncontrolled pain, inability to tolerate fluids by mouth, difficulty breathing, fevers 100.4? F or greater, recurrent vomiting, or any other concerning symptoms. Prescriptions: New magnesium oxide 400 mg magnesium tablet 400 mg PO DAILY Qty: 3 0RF prochlorperazine [Compazine] 25 mg suppository 25 mg MN BID PRN (Reason: nausea and vomiting) Qty: 12 0RF No Action metoclopramide HCl [Reglan] 10 mg tablet 10 mg PO Q6H PRN (Reason: nausea and vomiting) Qty: 20 0RF Print Language: Greek
[2024-05-31 12:28] LABS: MANUAL DIFF FLAG NO
[2024-05-31 12:30] LABS: Basophils Absolute Auto 0.1 X10*3/uL (0.0-0.2); Basophils Percent Auto 0.6 % (0-2); Eosinophils Absolute Auto 0.1 X10*3/uL (0.0-0.4); Eosinophils Percent Auto 0.5 % (0-4); Hematocrit 44.3 % (37.0-47.0); Hemoglobin 15.9 g/dl (12.0-16.0); Imm Gran Abs Auto 0.04 X10*3/uL (0.00-0.03); Imm Gran Pct Auto 0.4 % (0.0-0.4); Lymphocytes Absolute Auto 1.2 X10*3/uL (1.2-4.9); Lymphocytes Percent Auto 11.7 % (20-40); Mean Corpuscular HGB Conc 35.9 g/dl (31.0-35.0); Mean Corpuscular Hemoglobin 32.4 pg (27.0-33.0); Mean Corpuscular Volume 90.4 fL (80.0-98.0); Monocytes Absolute Auto 0.4 X10*3/uL (0.1-1.2); Monocytes Percent Auto 3.9 % (2-11); Neutrophils Absolute Auto 8.3 x10*3/uL (2.0-8.3); Neutrophils Percent Auto 82.9 % (45-73); Platelet Count 239 X10*3/uL (160-400); Red Cell Distribution Width 12.5 % (11.0-16.0)
[2024-05-31] MEDS: LORazepam 2 MG/ML VIAL 1 MG IVPUSH ×2 (12:45→13:36)
[2024-05-31] MEDS: ondansetron HCL 4 MG/2 ML VIAL IVPUSH (12:45)
--- NOTE | 2024-05-31 12:50 | PC.NURSE ---
Pt BIBA for n/v for the past 24 hours, states she is unable to keep anything down. While this RN triaging pt, pt said she was panicked because her kids are at her boyfriends work and while she was getting picked up by EMS there the police ran her boyfriends license plate and found out his license is suspended. Since his license is suspended d/t child support he can't drive her kids either here or someone elses house. Pt stating hes so pissed at me Pt visibly tearful and stating this is the most panicked otilia ever been . This RN aksed pt if she felt safe at home or if she was scared to go home. Pt stated she feels safe. This RN suggested her boyfriend get an uber or a taxi, pt declined and stated thats too expensive he's already pissed at me for coming here . Per EMS pt did not vomit while with them. Pt had no episodes of vomiting during first 25-30mins here. Pt became very panicked and began dry heaving, gagging, and eventually vomitted.Provider aware. Pt stopping staff in hallways stating otilia been here too long someone needs to help me . This RN educated pt that I cannot give her any medication until a provider has come and assessed her. Pt cousin now at bedside
[2024-05-31 12:54] LABS: Alanine Aminotransferase 14 U/L (0-31); Alkaline Phosphatase 71 U/L (39-117); Anion Gap 19 (12-20); Aspartate Amino Transferase 17 U/L (5-31); Bilirubin Total 0.5 mg/dL (0.0-1.0); Blood Urea Nitrogen 11 mg/dL (9-16); Calcium 10.6 mg/dL (8.4-10.2); Carbon Dioxide 19 mmol/L (22-29); Chloride 110 mmol/L (96-108); Creatinine Clr Calc Pharmacy 96.4; Estimated Glomerular Filt Rate > 60; Glucose Random 159 mg/dL (60-115); Magnesium 1.5 mg/dL (1.6-2.6); Potassium 3.5 mmol/L (3.3-5.1); Sodium 144 mmol/L (135-145); Total Protein 8.2 g/dL (6.5-8.0)
[2024-05-31 12:56] LABS: HCG Quantitative < 2 mIU/mL
[2024-05-31 13:06] LABS: Influenza A PCR NEGATIVE (Negative); Influenza B PCR NEGATIVE (Negative); Resp Syncy Virus RNA Qual PCR NEGATIVE (Negative); SARS COV2 PCR INHOUSE NEGATIVE (Negative)
--- NOTE | 2024-05-31 13:28 | ECG_ITS ---
Test Reason : BASELINE Blood Pressure : / mmHG Vent. Rate : 080 BPM Atrial Rate : 080 BPM P-R Int : 134 ms QRS Dur : 098 ms QT Int : 392 ms P-R-T Axes : 066 044 034 degrees QTc Int : 452 ms Normal sinus rhythm with sinus arrhythmia Normal ECG When compared with ECG of 16-NOV-2018 18:41, No significant change was found Referred By: oN Cordero Electronically Signed By:STEPHANE FORTE
[2024-05-31] MEDS: droPERidol 5 MG/2 ML VIAL 1.25 MG IVPUSH ×2 (13:36→16:09)
[2024-05-31] MEDS: Magnesium Sulfate/H2O 2 GM/50 ML PIGGYBACK IV (13:55)
[2024-05-31 14:57] VITALS: BP 114/84; PULSE 87; RESP 19; TEMP 35.9; O2SAT 98
[2024-05-31 16:00] LABS: Appearance Urine Cloudy; Color Urine Yellow; Glucose Urine UA Negative (Negative); Leukocyte Esterase Urine Negative (Negative); Nitrite Urine Negative (Negative); PH 7.5 (5.0-9.0); Urine Blood Negative (Negative); Urine Ketones 40 mg/dL (Negative); Urine Protein Negative (Neg-Trace)
[2024-05-31 16:01] LABS: Amylase 92 U/L (28-100); Lipase 13 U/L (8-78)
--- NOTE | 2024-05-31 19:03 | PC.NURSE ---
Assumed care of pt. Pt shin taylor, no acute distress at this time, endorsing nausea, dry heaving.
[2024-05-31] MEDS: Haloperidol Lactate 5 MG/ML VIAL 2.5 MG IVPUSH (19:05)
[2024-05-31 20:53] VITALS: BP 114/84; PULSE 87; RESP 19; TEMP 35.9; O2SAT 98
== END 2024-05-31 20:54 | disposition home or self-care (01) ==
PROVIDERS: Registered Nurse Emergency; Emergency Provider Emergency Medicine; PCP Internal Medicine
DX: R11.2 Nausea with vomiting, unspecified (principal); E83.42 Hypomagnesemia; F41.9 Anxiety disorder, unspecified; F12.90 Cannabis use, unspecified, uncomplicated; Z03.818 Encounter for observation for suspected exposure to other biological agents ruled out
CPT/HCPCS: 0241U; 80053; 81003; 82150; 83690; 83735; 84702; 85025; 93005; 96361; 96374; 96375; 96376; 99285; J1200; J1630; J1790; J2060; J2405; J2765; J3475

== ENCOUNTER → 2024-05-31 13:28 | Outpatient (BNV) | payer MEDICAID, SELFPAY | PROVIDERS: Emergency Provider Emergency Medicine; PCP Internal Medicine; Visit Provider Internal Medicine | DX: R11.2 Nausea with vomiting, unspecified (principal) | CPT/HCPCS: 93010 ==